=== PATIENT | male | born 1965 | race Caucasian/White ===

== ENCOUNTER → 2016-11-11 | Outpatient (CLI) | payer OTHER ==
[2016-11-11 16:45] LABS: BASO % 0.5 %; BASO ABS # 0.04 K/uL (0-0.2); COMPLETE YES; HEMATOCRIT 40.2 % (42-52); IG% 0.3 %; LYMPH % 24.4 %; LYMPH ABS # 1.93 K/uL (1.2-3.4); MEAN CELL VOLUME 90.5 fL (80-100); MEAN CORPUSCULAR HEMOGLOBIN 30.2 pg (25-34); MEAN CORPUSCULAR HGB CONC 33.3 g/dl (32-36); MEAN PLATELET VOLUME 9.5 fL (7.4-10.4); MONO % 5.4 %; NEUT % 67.4 %; PLATELET COUNT 204 K/uL (130-400); RED BLOOD COUNT 4.44 M/uL (4.7-6.1)
[2016-11-11 16:49] LABS: ALT/SGPT 22 U/L (12-78)
[2016-11-11 16:52] LABS: ALKALINE PHOSPHATASE 57 U/L (45-117); AST/SGOT 14 U/L (15-37)
== END | disposition home or self-care (01) ==
LOC: C.LAB1850 14:57
PROVIDERS: ATTEND Internal Medicine Rheumatology
DX: Z79.899 Other long term (current) drug therapy (principal); L40.50 Arthropathic psoriasis, unspecified

== ENCOUNTER → 2016-11-17 | Outpatient (CLI) | payer OTHER ==
--- NOTE | 2016-11-17 16:29 | DIAGNOSTIC IMAGING REPORT ---
LEFT HAND MIN 3 VIEWS ROUTINE CLINICAL HISTORY: METACARPOPHALANGEAL JOINT PAIN pain COMPARISON: None. DISCUSSION: The bones and joint spaces appear intact. There is no evidence of fracture, dislocation or bony disease. There is no evidence for soft tissue swelling. IMPRESSION: Negative study. Electronically signed by: Malik Merrill M.D. 11/17/2016 4:27 PM Dictated Date/Time: 11/17/2016 4:27 PM
== END | disposition home or self-care (01) ==
LOC: C.RAD1850 16:17
PROVIDERS: ATTEND Nurse Practitioner
DX: M79.642 Pain in left hand (principal)

== ENCOUNTER → 2017-07-20 | Outpatient (CLI) | payer OTHER ==
[2017-07-20 09:31] LABS: BASO % 0.5 %; BASO ABS # 0.03 K/uL (0-0.2); COMPLETE YES; EOS % 3.7 %; HEMATOCRIT 41.4 % (42-52); IG% 0.3 %; LYMPH % 25.7 %; LYMPH ABS # 1.68 K/uL (1.2-3.4); MEAN CORPUSCULAR HEMOGLOBIN 30.3 pg (25-34); MEAN CORPUSCULAR HGB CONC 33.3 g/dl (32-36); MEAN PLATELET VOLUME 9.5 fL (7.4-10.4); MONO % 6.1 %; NEUT % 63.7 %; PLATELET COUNT 205 K/uL (130-400); RED BLOOD COUNT 4.55 M/uL (4.7-6.1); WHITE BLOOD COUNT 6.54 K/uL (4.8-10.8)
[2017-07-20 10:16] LABS: ALT/SGPT 22 U/L (12-78); BLOOD UREA NITROGEN 13 mg/dl (7-18); BUN/CREATININE RATIO 13.2 (10-20); CALCIUM 8.6 mg/dl (8.5-10.1); CARBON DIOXIDE 25 mmol/L (21-32); CHLORIDE 111 mmol/L (98-107); CREATININE 0.96 mg/dl (0.60-1.40); GLUCOSE 101 mg/dl (70-99); SODIUM 143 mmol/L (136-145)
[2017-07-20 10:27] LABS: ALKALINE PHOSPHATASE 57 U/L (45-117); AST/SGOT 14 U/L (15-37); THYROID STIMULATING HORMONE 0.369 uIu/ml (0.300-4.500)
[2017-07-21 15:09] LABS: CHOLESTEROL/HDL RATIO 3.6
[2017-07-21 15:29] LABS: ESTIMATED AVERAGE GLUCOSE 108 mg/dl; HA1C FLAG Normal (Normal)
== END | disposition home or self-care (01) ==
LOC: C.LAB1850 08:21
PROVIDERS: ATTEND Internal Medicine
DX: Z00.00 Encounter for general adult medical examination without abnormal findings (principal); R73.03 Prediabetes; E03.9 Hypothyroidism, unspecified; Z79.899 Other long term (current) drug therapy

== ENCOUNTER → 2017-10-31 | Outpatient (CLI) | payer OTHER ==
[2017-10-31 09:53] LABS: BASO % 0.8 %; BASO ABS # 0.05 K/uL (0-0.2); EOS % 2.1 %; EOS ABS # 0.13 K/uL (0-0.5); HEMATOCRIT 43.5 % (42-52); HEMOGLOBIN 14.4 g/dL (14.0-18.0); IG# 0.03 K/uL (0.00-0.02); LYMPH % 30.4 %; LYMPH ABS # 1.88 K/uL (1.2-3.4); MEAN CELL VOLUME 90.2 fL (80-100); MEAN CORPUSCULAR HEMOGLOBIN 29.9 pg (25-34); MEAN CORPUSCULAR HGB CONC 33.1 g/dl (32-36); MEAN PLATELET VOLUME 9.8 fL (7.4-10.4); MONO % 8.7 %; MONO ABS # 0.54 K/uL (0.11-0.59); NEUT % 57.5 %; NEUT ABS # 3.56 K/uL (1.4-6.5); PLATELET COUNT 220 K/uL (130-400); RED CELL DISTRIBUTION WIDTH CV 14.4 % (11.5-14.5); RED CELL DISTRIBUTION WIDTH SD 46.7 fL (36.4-46.3); WHITE BLOOD COUNT 6.19 K/uL (4.8-10.8)
[2017-10-31 10:36] LABS: ALBUMIN 3.8 gm/dl (3.4-5.0); ALT/SGPT 24 U/L (12-78); AST/SGOT 14 U/L (15-37); CREATININE 1.01 mg/dl (0.60-1.40)
[2017-10-31 10:39] LABS: ALKALINE PHOSPHATASE 54 U/L (45-117); TOTAL PROTEIN 6.7 gm/dl (6.4-8.2)
== END | disposition home or self-care (01) ==
LOC: C.LAB1850 08:48
PROVIDERS: ATTEND Internal Medicine Rheumatology
DX: Z79.899 Other long term (current) drug therapy (principal); L40.50 Arthropathic psoriasis, unspecified; M79.645 Pain in left finger(s)

== ENCOUNTER → 2018-02-28 | Outpatient (CLI) | payer OTHER ==
[2018-02-28 09:44] LABS: BASO % 0.3 %; BASO ABS # 0.02 K/uL (0-0.2); EOS % 2.1 %; EOS ABS # 0.14 K/uL (0-0.5); HEMOGLOBIN 13.8 g/dL (14.0-18.0); IG# 0.02 K/uL (0.00-0.02); LYMPH % 23.1 %; LYMPH ABS # 1.52 K/uL (1.2-3.4); MEAN CELL VOLUME 91.1 fL (80-100); MEAN CORPUSCULAR HEMOGLOBIN 30.7 pg (25-34); MEAN CORPUSCULAR HGB CONC 33.7 g/dl (32-36); MEAN PLATELET VOLUME 9.4 fL (7.4-10.4); MONO % 7.8 %; MONO ABS # 0.51 K/uL (0.11-0.59); NEUT % 66.4 %; NEUT ABS # 4.37 K/uL (1.4-6.5); PLATELET COUNT 186 K/uL (130-400); RED CELL DISTRIBUTION WIDTH CV 14.9 % (11.5-14.5); WHITE BLOOD COUNT 6.58 K/uL (4.8-10.8)
[2018-02-28 10:01] LABS: ALBUMIN 3.5 gm/dl (3.4-5.0); ALKALINE PHOSPHATASE 54 U/L (45-117); ALT/SGPT 37 U/L (12-78); AST/SGOT 19 U/L (15-37); CREATININE 1.01 mg/dl (0.60-1.40); TOTAL PROTEIN 6.6 gm/dl (6.4-8.2)
== END | disposition home or self-care (01) ==
LOC: C.LAB1850 08:11
PROVIDERS: ATTEND Internal Medicine Rheumatology
DX: Z79.1 Long term (current) use of non-steroidal anti-inflammatories (NSAID) (principal); Z79.899 Other long term (current) drug therapy; L40.50 Arthropathic psoriasis, unspecified

== ENCOUNTER 2021-06-17 23:10 | Inpatient (IN) ==
[2021-06-18] MEDS ORDERED: DEXAMETHASONE SOD INJ 4 MG/ML VIAL IV STA (00:01)
[2021-06-18] MEDS ORDERED: SODIUM CHLORIDE 0.9% 1000ML 1,000 ML IV SCH (00:04)
[2021-06-18 00:18] LABS: Basophils # (auto) 0.01 K/uL (0-0.2); Basophils % (auto) 0.1 %; Hematocrit (blood only) 40.3 % (42-52); Hemoglobin 13.6 g/dL (14.0-18.0); Immature Granulocytes # (auto) 0.03 K/uL (0.00-0.02); Immature Granulocytes % (auto) 0.4 %; Lymphocytes # (auto) 1.18 K/uL (1.2-3.4); Lymphocytes % (auto) 14.2 %; Mean Corpuscular Hemoglobin 28.8 pg (25-34); Mean Corpuscular Hgb Conc 33.7 g/dL (32-36); Mean Corpuscular Volume 85.2 fL (80-100); Mean Platelet Volume 9.3 fL (7.4-10.4); Monocytes # (auto) 0.66 K/uL (0.11-0.59); Neutrophils # (auto) 6.41 K/uL (1.4-6.5); Neutrophils % (auto) 77.3 %; Platelet Count 199 K/uL (130-400); RDW Coefficient of Variation 14.5 % (11.5-14.5); RDW Standard Deviation 45.7 fL (36.4-46.3); Red Blood Count 4.73 M/uL (4.7-6.1); White Blood Count 8.29 K/uL (4.8-10.8)
[2021-06-18 00:25] LABS: Alanine Aminotransferase 47 U/L (12-78); Albumin Level 3.2 gm/dl (3.4-5.0); Aspartate Aminotransferase 56 U/L (15-37); BUN Creatinine Ratio 16.6 (10-20); Blood Urea Nitrogen 19 mg/dl (7-18); Calcium 8.8 mg/dl (8.5-10.1); Carbon Dioxide 25 mmol/L (21-32); Chloride 102 mmol/L (98-107); Est GFR (African American) 81.1 ml/min; Glucose 132 mg/dl (70-99); Lipase 123 U/L (73-393); Magnesium 1.6 mg/dl (1.8-2.4); Potassium 3.9 mmol/L (3.5-5.1); Sodium 135 mmol/L (136-145)
[2021-06-18 00:36] LABS: Albumin Globulin Ratio 0.8 (0.9-2); Alkaline Phosphatase 52 U/L (45-117); Bilirubin,Total 0.6 mg/dl (0.2-1); Globulin 3.9 gm/dl (2.5-4.0); Total Protein 7.1 gm/dl (6.4-8.2); Troponin I < 0.015 ng/ml (0-0.045)
[2021-06-18] MEDS ORDERED: ALBUT/IPRATROP 3MG/0.5MG NEB 3 ML VIAL NEB STA (00:43)
[2021-06-18] MEDS ORDERED: MAGNESIUM SULFATE / D5W 1 GM/100 ML BAG IV STA (00:43)
--- NOTE | 2021-06-18 01:07 | Emergency Department Note ---
History of Present Illness General Chief complaint: Shortness of Breath/Dyspnea Stated complaint: COVID, HARD TO BREATHE Time Seen by Provider: 06/17/21 23:24 Source: patient Mode of arrival: ambulatory Limitations: no limitations History of Present Illness Provider complaint: shortness of breath, COVID+ Onset (ago): week(s) 1 This is a 56-year-old male presents emergency department complaining of increased shortness of breath. Patient states he diagnosed with Covid several days ago. He states the first several days he had some mild aches, nasal congestion, cough, and fevers. However in the last 2 to 3 days his symptoms have worsened with increasing shortness of breath. He has been monitoring his oxygen levels at home with a pulse oximeter and noticed that he was dipping into the upper 80s. Patient does have a history of asthma, no prior history of smoking. Patient denies any cardiac history. Patient states his cough is intermittently productive. He states he has had accompanying diarrhea, nausea, poor appetite. He denies rash, leg swelling, loss of taste or smell. Has had intermittent headaches. Denies any coming chest pain. Patient was noted to be hypoxic by nursing staff on arrival and was immediately placed on oxygen via nasal cannula. His oxygen levels did not improve enough even with titrating up the oxygen via nasal cannula so he was changed to an oxy mask. Pt seen during a time of high acuity and national emergency pandemic while wearing PPE. Home Medications Medication Instructions Recorded Confirmed Type albuterol sulfate 90 mcg/actuation 2 puff INHALATION Q4H PRN 01/08/21 06/18/21 History aerosol inhaler (Ventolin HFA) fexofenadine 180 mg tablet 180 mg PO HS 01/08/21 06/18/21 History hydrochlorothiazide 12.5 mg tablet 6.25 mg PO QAM 01/08/21 06/18/21 History ibuprofen 200 mg tablet 600 - 800 mg PO DIRECTED PRN 01/08/21 06/18/21 History levothyroxine 150 mcg tablet 150 mcg PO HS 01/08/21 06/18/21 History mometasone-formoterol HFA 200 1 puff INHALATION BID 01/08/21 06/18/21 History mcg-5 mcg/actuation aerosol inhaler (Dulera) omeprazole 20 mg capsule,delayed 20 mg PO HS 01/08/21 06/18/21 History release amoxicillin 875 mg-potassium 1 tab PO BID 06/18/21 06/18/21 History clavulanate 125 mg tablet ketotifen fumarate 0.025 % (0.035 1 drp OPB DAILY PRN 06/18/21 06/18/21 History %) eye drops ([facility]) metoprolol succinate 25 mg 25 mg PO DAILY 06/18/21 06/18/21 History tablet,extended release 24 hr prednisone 20 mg tablet 40 mg PO DAILY 06/18/21 06/18/21 History Allergies Allergy/AdvReac Type Severity Reaction Status Date / Time aspirin Allergy Unknown HAPPENED Verified 01/08/21 06:49 A SMALL CHILD--TOLD NOT TO TAKE Past Med/Surg History Medical History (Updated 06/19/21 @ 08:11 by Rhea Rosario DO) Mild persistent asthma Pneumonia due to COVID-19 virus Social History Smoking Status: Never smoker Hx Alcohol Use: No Hx Substance Use: No Preferred Language: [place] Communication Ability: Effective [employer] Required: No Beliefs That Will Affect Care: None Current Living Situation: Spouse Feels Safe at Home: Yes Assistive Devices: Oxygen - Continuous Review of Systems A total of 10 systems reviewed and were otherwise negative All systems reviewed & are unremarkable except as noted in HPI & below Physical Exam Vital Signs Vital Signs - 24 hr 06/17/21 23:20 06/17/21 23:53 06/17/21 23:55 Temperature 37.4 C Temperature Source Temporal Artery Scan Pulse Rate 84 Pulse Rate [Finger] Respiratory Rate 24 Respiratory Effort / Characteristics Non-Labored Spontaneous Respiratory Depth Normal Respiratory Pattern Regular Blood Pressure 164/84 H Blood Pressure [Right Arm] Blood Pressure Mean 110 Blood Pressure Mean [Right Arm] Pulse Oximetry 86 L 86 L 87 L Oxygen Delivery Method Room Air Room Air Nasal Cannula Oxygen Flow Rate 4 Sepsis New/Unexplained Change in Mental Status N/A Sepsis Action Taken by Nursing No Action Required Oxygen Flow Rate - Titration 4 10 Pulse Oximetry Post Tiitration 87 L 91 06/17/21 23:56 06/18/21 00:27 06/18/21 01:03 Temperature Temperature Source Pulse Rate Pulse Rate [Finger] 73 70 Respiratory Rate 18 24 Respiratory Effort / Characteristics Spontaneous Short of Breath Respiratory Depth Normal Respiratory Pattern Blood Pressure Blood Pressure [Right Arm] 173/77 H Blood Pressure Mean Blood Pressure Mean [Right Arm] 109 Pulse Oximetry 91 90 93 Oxygen Delivery Method Oxymask Oxymask Oxymask Oxygen Flow Rate 10 10 10 Sepsis New/Unexplained Change in Mental Status Sepsis Action Taken by Nursing Oxygen Flow Rate - Titration Pulse Oximetry Post Tiitration GENERAL: alert, ill appearing, well nourished, no distress, non-toxic, patient placed on oxygen mask EYE EXAM: normal conjunctiva, PERRL and EOM's grossly intact OROPHARYNX: no exudate, no erythema, lips, buccal mucosa, and tongue normal and mucous membranes are moist NECK: supple, no nuchal rigidity, no adenopathy, non-tender LUNGS: Decreased to auscultation. Normal chest wall mechanics, no w/r/r, mild tachypnea noted, no retractions HEART: no murmurs, S1 normal and S2 normal ABDOMEN: abdomen soft, non-tender, normo-active bowel sounds, no masses, no rebound or guarding. BACK: Back is symmetrical on inspection and there is no deformity, no midline tenderness, no CVA tenderness. SKIN: no rashes and no bruising, no petechiae UPPER EXTREMITIES: upper extremities are grossly normal. FROM, nml pulses b/l. LOWER EXTREMITIES: No pitting edema. FROM, nml pulses b/l. NEURO EXAM: Normal sensorium, cranial nerves II-XII grossly intact, normal speech, no gross weakness of arms, no gross weakness of legs. Gross sensation intact. Course Administered Medications Albuterol (Albuterol Hfa 8 Gm Inhaler) 2 puffs INH QIDR [facility] Stop: 07/18/21 06:59 Last Admin: 06/19/21 08:03 Dose: 2 puffs Documented by: [id number] Admin: 06/18/21 19:47 Dose: 2 puffs Documented by: [id number] Admin: 06/18/21 15:16 Dose: 2 puffs Documented by: [id number] Admin: 06/18/21 11:34 Dose: 2 puffs Documented by: [id number] Admin: 06/18/21 07:27 Dose: 2 puffs Documented by: [id number] Amlodipine Besylate (Amlodipine Besylate 5 Mg Tab) 2.5 mg PO QAM [facility] Stop: 07/18/21 06:44 Last Admin: 06/18/21 08:37 Dose: 2.5 mg Documented by: [id number] Doxycycline Hyclate (Doxycycline Hyclate 100 Mg Cap) 100 mg PO BID [facility] Stop: 06/25/21 20:59 Last Admin: 06/18/21 20:19 Dose: 100 mg Documented by: [id number] Enoxaparin Sodium (Enoxaparin Inj 40 Mg/0.4 Ml Syr) 40 mg SQ QAM [facility] Stop: 07/18/21 08:59 Last Admin: 06/18/21 08:38 Dose: 40 mg Documented by: [id number] Fexofenadine HCl (Fexofenadine Hcl 180 Mg Tab) 180 mg PO HS [facility] Stop: 07/18/21 20:59 Last Admin: 06/18/21 20:19 Dose: 180 mg Documented by: [id number] Fluticasone/Vilanterol (Fluticasone/Vilanterol 200/25mcg 14 Puffs/Inhaler) 1 puffs INH DAILY [facility]; Protocol Stop: 07/18/21 08:59 Last Admin: 06/18/21 08:38 Dose: 1 puffs Documented by: [id number] Remdesivir 100 mg/ Sodium (Chloride) 250 mls @ 250 mls/hr IV Q24H [facility]; Protocol Stop: 06/21/21 20:59 Last Infusion: 06/19/21 00:08 Dose: 0 mls/hr Documented by: [id number] Admin: 06/18/21 20:15 Dose: 250 mls/hr Documented by: [id number] Dexamethasone 6 mg/ Syringe 1.5 mls @ 1 mls/min IV DAILY [facility] Stop: 07/19/21 01:34 Last Admin: 06/19/21 02:30 Dose: 1 mls/min Documented by: [id number] Insulin Aspart (Insulin Aspart 100 Units/Ml 3 Ml Pen) 0 units SC ACHS [facility] Stop: 07/18/21 11:29 Last Admin: 06/18/21 20:17 Dose: 1 units Documented by: [id number] Cosigned by: [id number] Admin: 06/18/21 17:31 Dose: 4 units Documented by: [id number] Cosigned by: [id number] Admin: 06/18/21 12:21 Dose: 1 units Documented by: [id number] Cosigned by: [id number] Levothyroxine Sodium (Levothyroxine Sodium 150 Mcg Tablet) 150 mcg PO HS [facility] Stop: 07/18/21 20:59 Last Admin: 06/18/21 20:19 Dose: 150 mcg Documented by: [id number] Metoprolol Succinate (Metoprolol Succ 25mg Ext Rel Tab) 25 mg PO DAILY [facility] Stop: 07/18/21 04:54 Last Admin: 06/18/21 05:41 Dose: 25 mg Documented by: [id number] Miscellaneous (Ketotifen: Order Awaiting Action) 1 ea N/A QS [facility] Stop: 07/18/21 07:59 Last Admin: 06/19/21 02:30 Dose: Not Given Documented by: [id number] Admin: 06/18/21 15:14 Dose: Not Given Documented by: [id number] Admin: 06/18/21 07:31 Dose: Not Given Documented by: [id number] Pantoprazole Sodium (Pantoprazole 40 Mg Tab) 40 mg PO HS [facility] Stop: 07/18/21 20:59 Last Admin: 06/18/21 20:20 Dose: 40 mg Documented by: [id number] Sodium Chloride (Sodium Chloride 0.9% 10ml Flush) 30 ml IV Q24H [facility] Stop: 06/22/21 03:41 Last Admin: 06/18/21 20:15 Dose: 30 ml Documented by: [id number] Admin: 06/18/21 04:57 Dose: 30 ml Documented by: [id number] Discontinued Medications Acetaminophen (Acetaminophen 325 Mg Tab) 325 mg PO NOW STA Stop: 06/18/21 04:53 Last Admin: 06/18/21 05:40 Dose: 325 mg Documented by: [id number] Albuterol (Albut/Ipratrop 3mg/0.5mg Neb 3 Ml Vial) 3 ml NEB NOW STA Stop: 06/18/21 00:44 Last Admin: 06/18/21 01:02 Dose: 3 ml Documented by: [id number] Albuterol (Albuterol Hfa 8 Gm Inhaler) 2 puffs INH NOW ONE Stop: 06/18/21 04:53 Last Admin: 06/18/21 05:25 Dose: 2 puffs Documented by: [id number] Albuterol (Albuterol Hfa 8 Gm Inhaler) 2 puffs INH NOW ONE Stop: 06/19/21 01:37 Last Admin: 06/19/21 02:09 Dose: 2 puffs Documented by: [id number] Dexamethasone (Dexamethasone Sod Inj 4 Mg/Ml Vial) 6 mg IV NOW STA Stop: 06/18/21 00:02 Last Admin: 06/18/21 00:21 Dose: 6 mg Documented by: [id number] Furosemide (Furosemide 40 Mg/4 Ml Vial) 40 mg IV ONE ONE Stop: 06/18/21 15:01 Last Admin: 06/18/21 15:42 Dose: 40 mg Documented by: [id number] Sodium Chloride (Nss 1000ml) 1,000 mls @ 999 mls/hr IV .Q1H1M [facility] Stop: 06/18/21 01:04 Last Infusion: 06/18/21 02:10 Dose: 0 mls/hr Documented by: [id number] Admin: 06/18/21 00:14 Dose: 999 mls/hr Documented by: [id number] Magnesium Sulfate/Dextrose (Magnesium Sulfate / D5w) 1 gm in 100 mls @ 100 mls/hr IV NOW STA Stop: 06/18/21 01:42 Last Infusion: 06/18/21 02:10 Dose: 0 mls/hr Documented by: [id number] Admin: 06/18/21 01:07 Dose: 100 mls/hr Documented by: [id number] Doxycycline Hyclate 100 mg/ (Dextrose) 110 mls @ 50 mls/hr IV NOW STA Stop: 06/18/21 03:51 Last Infusion: 06/18/21 05:37 Dose: 0 mls/hr Documented by: [id number] Admin: 06/18/21 02:13 Dose: 50 mls/hr Documented by: [id number] Remdesivir 200 mg/ Sodium (Chloride) 250 mls @ 125 mls/hr IV ONE STA; Protocol Stop: 06/18/21 03:47 Last Infusion: 06/18/21 05:37 Dose: 0 mls/hr Documented by: [id number] Admin: 06/18/21 02:21 Dose: 125 mls/hr Documented by: [id number] Potassium Chloride/Sodium Chloride (Normal Saline W/20 Meq Kcl) 20 meq in 1,000 mls @ 60 mls/hr IV .[id number] ONE Stop: 06/18/21 20:19 Last Infusion: 06/19/21 00:09 Dose: 0 mls/hr Documented by: [id number] Admin: 06/18/21 04:57 Dose: 60 mls/hr Documented by: [id number] Methylprednisolone 20 mg/ (Syringe) 0.32 mls @ 1.5 mls/min IV ONE ONE Stop: 06/18/21 06:46 Last Admin: 06/18/21 08:37 Dose: 1.5 mls/min Documented by: [id number] Magnesium Sulfate/Dextrose (Magnesium Sulfate / D5w) 1 gm in 100 mls @ 50 mls/hr IV ONE ONE Stop: 06/18/21 08:44 Last Infusion: 06/18/21 10:56 Dose: 0 mls/hr Documented by: [id number] Admin: 06/18/21 08:39 Dose: 50 mls/hr Documented by: [id number] Metoprolol Tartrate (Metoprolol Tartrate 1 Mg/Ml Vial) 2.5 mg IV NOW STA Stop: 06/18/21 01:14 Last Admin: 06/18/21 02:11 Dose: 2.5 mg Documented by: [id number] Medical Decision Making Differential Diagnosis Differential diagnoses includes but is not limited to pneumonia, bronchitis, COPD/Asthma exacerbation, pneumothorax, pulmonary embolism, congestive heart failure, acute coronary syndrome Medical Records Attestation: I reviewed the patient's medical records. Home Medications Current Medication List: was personally reviewed by me Laboratory Data Attestation: I reviewed the patient's lab results. Result diagrams: 06/19/21 06:25 06/19/21 06:25 Lab Results 06/18/21 06/18/21 06/18/21 Range/Units 00:00 00:00 00:00 WBC 8.29 (4.8-10.8) K/uL RBC 4.73 (4.7-6.1) M/uL Hgb 13.6 L (14.0-18.0) g/dL Hct 40.3 L (42-52) % MCV 85.2 (80-100) fL MCH 28.8 (25-34) pg MCHC 33.7 (32-36) g/dL RDW Std Deviation 45.7 (36.4-46.3) fL RDW Coeff of Alesha 14.5 (11.5-14.5) % Plt Count 199 (130-400) K/uL MPV 9.3 (7.4-10.4) fL Immature Gran % (Auto) 0.4 % Neut % (Auto) 77.3 % Lymph % (Auto) 14.2 % [place] % (Auto) 8.0 % Eos % (Auto) 0.0 % Baso % (Auto) 0.1 % Neut # (Auto) 6.41 (1.4-6.5) K/uL Lymph # (Auto) 1.18 L (1.2-3.4) K/uL [place] # (Auto) 0.66 H (0.11-0.59) K/uL Eos # (Auto) 0.00 (0-0.5) K/uL Baso # (Auto) 0.01 (0-0.2) K/uL Immature Gran # (Auto) 0.03 H (0.00-0.02) K/uL APTT (21.0-31.0) Seconds PTT Ratio Sodium 135 L (136-145) mmol/L Potassium 3.9 (3.5-5.1) mmol/L Chloride 102 (98-107) mmol/L Carbon Dioxide 25 (21-32) mmol/L Anion Gap 8.0 (3-11) BUN 19 H (7-18) mg/dl Creatinine 1.16 (0.6-1.4) mg/dl Est Cr Clr Drug Dosing Not Reportable Est GFR ( Amer) 81.1 ml/min Est GFR (Non-Af Amer) 70.0 ml/min BUN/Creatinine Ratio 16.6 (10-20) Glucose 132 H (70-99) mg/dl Estimat Average Glucose 160 mg/dl Hemoglobin A1c 7.2 H (4.5-5.6) % Calcium 8.8 (8.5-10.1) mg/dl Magnesium 1.6 L (1.8-2.4) mg/dl Total Bilirubin 0.6 (0.2-1) mg/dl AST 56 H (15-37) U/L ALT 47 (12-78) U/L Alkaline Phosphatase 52 (45-117) U/L Troponin I < 0.015 (0-0.045) ng/ml Total Protein 7.1 (6.4-8.2) gm/dl Albumin 3.2 L (3.4-5.0) gm/dl Globulin 3.9 (2.5-4.0) gm/dl Albumin/Globulin Ratio 0.8 L (0.9-2) Lipase 123 (73-393) U/L TSH 0.610 (0.300-4.500) uIu/ml 09/09/21 Range/Units 01:27 WBC (4.8-10.8) K/uL RBC (4.7-6.1) M/uL Hgb (14.0-18.0) g/dL Hct (42-52) % MCV (80-100) fL MCH (25-34) pg MCHC (32-36) g/dL RDW Std Deviation (36.4-46.3) fL RDW Coeff of Alesha (11.5-14.5) % Plt Count (130-400) K/uL MPV (7.4-10.4) fL Immature Gran % (Auto) % Neut % (Auto) % Lymph % (Auto) % [place] % (Auto) % Eos % (Auto) % Baso % (Auto) % Neut # (Auto) (1.4-6.5) K/uL Lymph # (Auto) (1.2-3.4) K/uL [place] # (Auto) (0.11-0.59) K/uL Eos # (Auto) (0-0.5) K/uL Baso # (Auto) (0-0.2) K/uL Immature Gran # (Auto) (0.00-0.02) K/uL APTT 31.3 H (21.0-31.0) Seconds PTT Ratio 1.2 Sodium (136-145) mmol/L Potassium (3.5-5.1) mmol/L Chloride (98-107) mmol/L Carbon Dioxide (21-32) mmol/L Anion Gap (3-11) BUN (7-18) mg/dl Creatinine (0.6-1.4) mg/dl Est Cr Clr Drug Dosing Est GFR ( Amer) ml/min Est GFR (Non-Af Amer) ml/min BUN/Creatinine Ratio (10-20) Glucose (70-99) mg/dl Estimat Average Glucose mg/dl Hemoglobin A1c (4.5-5.6) % Calcium (8.5-10.1) mg/dl Magnesium (1.8-2.4) mg/dl Total Bilirubin (0.2-1) mg/dl AST (15-37) U/L ALT (12-78) U/L Alkaline Phosphatase (45-117) U/L Troponin I (0-0.045) ng/ml Total Protein (6.4-8.2) gm/dl Albumin (3.4-5.0) gm/dl Globulin (2.5-4.0) gm/dl Albumin/Globulin Ratio (0.9-2) Lipase (73-393) U/L TSH (0.300-4.500) uIu/ml Imaging Data My Impression: X-ray: I interpreted the following studies. Chest: A single view study of the chest was reviewed and was negative for cardiomegaly, effusion, or wide mediastinum. Bilateral edema and infiltrates noted consistent with Covid infection. ECG Data Attestation: I personally reviewed and interpreted this ECG as follows: Indication: + SOB/dyspnea Rate (beats per minute): 77 Rhythm: + normal sinus ECG Intervals/blocks: + Normal QRS and + Normal QT ECG [place]: + Normal ECG ST segments: + Normal ST segments MDM Narrative This is an ill-appearing 56-year-old male who presents due to increased trouble breathing with a known diagnosis of coronavirus several days ago with an outpatient swab. Patient was noted to be hypoxic and was placed on nasal cannula, however was still hypoxic so this was titrated up to anoxia mask. Patient did report improvement of his symptoms with addition of oxygen. Patient's chest x-ray concerning and consistent with COVID-19 infection. Patient's other labs reassuring and patient was hemodynamically stable in the emergency room. Patient was started on dexamethasone. We did discuss his results and need for additional inpatient treatment at this time. Case discussed with hospitalist for additional evaluation and management. An order was placed for continuous cardiac monitoring. The monitor shows a rate of __80_ with __normal sinus__ rhythm. Impression & Plan Acute hypoxemic respiratory failure, COVID-19 Discharge Plan Visit Data Chief Complaint: Shortness of Breath/Dyspnea Stated Complaint: COVID, HARD TO BREATHE ED Provider: Rhea Rosario Discharge Problem: Acute hypoxemic respiratory failure, COVID-19 Patient Disposition: Admitted As Inpatient Discharge Instructions Interventions: ED Discharge Assessment Last Done: 06/18/21 02:31
[2021-06-18] MEDS ORDERED: METOPROLOL TARTRATE 1 MG/ML VIAL IV STA (01:13)
[2021-06-18] MEDS ORDERED: DOXYCYCLINE HYCLATE 100 MG in DEXTROSE 5% 100 ML IV STA (01:40)
--- NOTE | 2021-06-18 01:41 | History & Physical Report ---
Date of Service June 18, 2021 Assessment & Plan (1) Acute hypoxemic respiratory failure: Plan: Secondary to severe COVID-19 pneumonia Superimposed bacterial infection Possible asthma exacerbation secondary to above hypertension elevated secondary to illness Graves' disease status post radiation hypothyroidism, euthyroid as of today's TSH Chronic anemia, hemoglobin at baseline prediabetes, outpatient hemoglobin A1c of 5.17 May 2020 Medical telemetry Supplemental O2 Baseline ABG Decadron, Remdesivir (Patient was counseled regarding potential adverse effects from Remdesivir therapy and provided with patient education sheet.) Doxycycline for superimposed bacterial infection MDI RTC for presumptive asthma exacerbation Pulmonary consult if without improvement Facilitate home beta-ginger, initiate amlodipine if BP still uncontrolled and beta-ginger dose increased limited by bradycardia Update hemoglobin A1c, may need insulin coverage for hyperglycemia expected following steroid Rx DVT prophylaxis. Lovenox subcu Full code Patient's requesting updates from providers. Ms. Meliza Brunner, contact #[phone]. Text document was generated using [employer] voice recognition software. It may contain grammatical or spelling errors. Kindly contact undersigned for clarification of any documentation item in question. History of Present Illness Chief Complaint: Covid, worsening shortness of breath Primary Care Provider: Martinez Terrell, History obtained from patient, family, and records. Medical history significant for hypertension, bronchial asthma, Graves' disease status post radiation, hypothyroidism as per records, chronic anemia (baseline hemoglobin of 13 ), prediabetes. 10 days ago, patient noted sinus congestion and postnasal drip, cough productive of yellow sputum and fever. Temperature 101 at home. Has not received COVID-19 vaccination. No recollection of recent COVID-19 contacts. Last week, patient started by PCP on Augmentin and prednisone course for possible asthma exacerbation secondary to sinusitis. Outpatient COVID-19 test later noted to be positive. The last 3 days, patient noted worsening symptoms along with shortness of breath especially on exertion. No chest pain, no fluid retention. At the ER, O2 sats noted to be 80s on room air. Patient received Decadron and neb treatment at the ER. Currently feeling much better. 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 Allergies Allergy/AdvReac Type Severity Reaction Status Date / Time aspirin Allergy Unknown HAPPENED Verified 01/08/21 06:49 A SMALL CHILD--TOLD NOT TO TAKE Home Medications Medication Instructions Recorded Confirmed Type albuterol sulfate 90 mcg/actuation 2 puff INHALATION Q4H PRN 01/08/21 06/18/21 History aerosol inhaler (Ventolin HFA) fexofenadine 180 mg tablet 180 mg PO HS 01/08/21 06/18/21 History hydrochlorothiazide 12.5 mg tablet 6.25 mg PO QAM 01/08/21 06/18/21 History ibuprofen 200 mg tablet 600 - 800 mg PO DIRECTED PRN 01/08/21 06/18/21 History levothyroxine 150 mcg tablet 150 mcg PO HS 01/08/21 06/18/21 History mometasone-formoterol HFA 200 1 puff INHALATION BID 01/08/21 06/18/21 History mcg-5 mcg/actuation aerosol inhaler (Dulera) omeprazole 20 mg capsule,delayed 20 mg PO HS 01/08/21 06/18/21 History release amoxicillin 875 mg-potassium 1 tab PO BID 06/18/21 06/18/21 History clavulanate 125 mg tablet ketotifen fumarate 0.025 % (0.035 1 drp OPB DAILY PRN 06/18/21 06/18/21 History %) eye drops ([facility]) metoprolol succinate 25 mg 25 mg PO DAILY 06/18/21 06/18/21 History tablet,extended release 24 hr prednisone 20 mg tablet 40 mg PO DAILY 06/18/21 06/18/21 History Past Med/Surg History Social History Smoking Status: Never smoker Hx Alcohol Use: No Hx Substance Use: No Preferred Language: Lithuanian Communication Ability: Effective Clinical Trial Assistant Required: No Beliefs That Will Affect Care: None Current Living Situation: Spouse Feels Safe at Home: Yes Review of Systems Review of Systems: As per HPI, all 10 systems reviewed, all other ROS negative Physical Exam Physical Exam: GENERAL: Anxious, obese, minimal respiratory distress SKIN: Normal color, warm HEENT: Alopecia, pink palpebral conjunctivae, no ptosis, dry buccal mucosa, O2 mask in place NECK : Supple, short neck, no tenderness CHEST : Decreased breath sounds, no tenderness HEART : RRR, no obvious murmurs ABDOMEN: Some distention, nontender EXTREMITIES : No LE swelling/tenderness, no other conspicuous deformities noted NEUROLOGIC : Coherent, no facial asymmetry, no other gross focality Results & Data Results & Data ([facility]) Vital Signs (Past 12 Hours) Vital Signs Temp Pulse Pulse Resp BP BP Pulse Ox 06/18/21 01:03 70 24 93 06/18/21 01:00 71 19 167/79 H 91 06/18/21 00:30 75 23 196/92 H 92 06/18/21 00:27 73 18 173/77 H 90 06/18/21 00:00 88 19 173/77 H 91 06/17/21 23:56 91 06/17/21 23:55 87 L 06/17/21 23:53 86 L 06/17/21 23:30 81 21 165/76 H 91 06/17/21 23:20 37.4 C 84 24 164/84 H 86 L Laboratory Results Laboratory Results WBC 8.29 K/uL (4.8-10.8) 06/18/21 00:00 RBC 4.73 M/uL (4.7-6.1) 06/18/21 00:00 Hgb 13.6 g/dL (14.0-18.0) L 06/18/21 00:00 Hct 40.3 % (42-52) L 06/18/21 00:00 MCV 85.2 fL (80-100) 06/18/21 00:00 MCH 28.8 pg (25-34) 06/18/21 00:00 MCHC 33.7 g/dL (32-36) 06/18/21 00:00 RDW Std Deviation 45.7 fL (36.4-46.3) 06/18/21 00:00 RDW Coeff of Alesha 14.5 % (11.5-14.5) 06/18/21 00:00 Plt Count 199 K/uL (130-400) 06/18/21 00:00 MPV 9.3 fL (7.4-10.4) 06/18/21 00:00 Immature Gran % (Auto) 0.4 % 06/18/21 00:00 Neut % (Auto) 77.3 % 06/18/21 00:00 Lymph % (Auto) 14.2 % 06/18/21 00:00 Gentry % (Auto) 8.0 % 06/18/21 00:00 Eos % (Auto) 0.0 % 06/18/21 00:00 Baso % (Auto) 0.1 % 06/18/21 00:00 Neut # (Auto) 6.41 K/uL (1.4-6.5) 06/18/21 00:00 Lymph # (Auto) 1.18 K/uL (1.2-3.4) L 06/18/21 00:00 Gentry # (Auto) 0.66 K/uL (0.11-0.59) H 06/18/21 00:00 Eos # (Auto) 0.00 K/uL (0-0.5) 06/18/21 00:00 Baso # (Auto) 0.01 K/uL (0-0.2) 06/18/21 00:00 Immature Gran # (Auto) 0.03 K/uL (0.00-0.02) H 06/18/21 00:00 Sodium 135 mmol/L (136-145) L 06/18/21 00:00 Potassium 3.9 mmol/L (3.5-5.1) 06/18/21 00:00 Chloride 102 mmol/L (98-107) 06/18/21 00:00 Carbon Dioxide 25 mmol/L (21-32) 06/18/21 00:00 Anion Gap 8.0 (3-11) 06/18/21 00:00 BUN 19 mg/dl (7-18) H 06/18/21 00:00 Creatinine 1.16 mg/dl (0.6-1.4) 06/18/21 00:00 Est Cr Clr Drug Dosing Not Reportable 06/18/21 00:00 Est GFR ( Amer) 81.1 ml/min 06/18/21 00:00 Est GFR (Non-Af Amer) 70.0 ml/min 06/18/21 00:00 BUN/Creatinine Ratio 16.6 (10-20) 06/18/21 00:00 Glucose 132 mg/dl (70-99) H 06/18/21 00:00 Calcium 8.8 mg/dl (8.5-10.1) 06/18/21 00:00 Magnesium 1.6 mg/dl (1.8-2.4) L 06/18/21 00:00 Total Bilirubin 0.6 mg/dl (0.2-1) 06/18/21 00:00 AST 56 U/L (15-37) H 06/18/21 00:00 ALT 47 U/L (12-78) 06/18/21 00:00 Alkaline Phosphatase 52 U/L (45-117) 06/18/21 00:00 Troponin I < 0.015 ng/ml (0-0.045) 06/18/21 00:00 Total Protein 7.1 gm/dl (6.4-8.2) 06/18/21 00:00 Albumin 3.2 gm/dl (3.4-5.0) L 06/18/21 00:00 Globulin 3.9 gm/dl (2.5-4.0) 06/18/21 00:00 Albumin/Globulin Ratio 0.8 (0.9-2) L 06/18/21 00:00 Lipase 123 U/L (73-393) 06/18/21 00:00 TSH 0.610 uIu/ml (0.300-4.500) 06/18/21 00:00 Diagnostic Findings Chest x-ray as per my interpretation multifocal infiltrates EKG as per my interpretation : Rate 75, NSR, LAD, LAFB, incomplete RBBB, LVH, no ischemia
[2021-06-18 01:47] LABS: Partial Thromboplastin Ratio 1.2; Partial Thromboplastin Time 31.3 Seconds (21.0-31.0)
[2021-06-18] MEDS ORDERED: REMDESIVIR 200 MG in SODIUM CHLORIDE 0.9% 210 ML IV STA (01:48)
[2021-06-18 02:48] LABS: Allen Test Pos (Pos); Base Excess ABG -1.9 mEq/L (-9-1.8); HCO3 ABG 21 mmol/L (19-24); Oxygen Saturation ABG 93.6 % (90-95); PCO2 ABG 29 mmHg (35-46); PO2 ABG 63 mmHg (80-95); pH ABG 7.48 (7.35-7.45)
[2021-06-18] MEDS ORDERED: PROMETHAZINE HCL 12.5 MG in SODIUM CHLORIDE 0.9% 50 ML IV PRN (03:40)
[2021-06-18] MEDS ORDERED: NSS + 20MEQ KCL 20 MEQ/1,000 ML BAG IV ONE (03:40)
[2021-06-18] MEDS ORDERED: ALBUTEROL HFA 8 GM INHALER INH ONE (04:52)
[2021-06-18] MEDS ORDERED: ACETAMINOPHEN 325 MG TAB PO STA (04:52)
[2021-06-18] MEDS: SODIUM CHLORIDE 0.9% 10ML FLUSH IV SCH ×2 (04:57→20:15)
[2021-06-18] MEDS: METOPROLOL SUCC 25MG EXT REL TAB PO SCH (05:41)
[2021-06-18] MEDS ORDERED: MAGNESIUM SULFATE / D5W 1 GM/100 ML BAG IV ONE (06:45)
[2021-06-18] MEDS ORDERED: methylPREDNISolone 20 MG in SYRINGE 0 ML IV ONE (06:45)
[2021-06-18] MEDS: ALBUTEROL HFA 8 GM INHALER INH SCH ×4 (07:27→19:47)
[2021-06-18 07:39] LABS: Estimated Average Glucose 160 mg/dl; Hemoglobin A1C 7.2 % (4.5-5.6)
[2021-06-18] MEDS ORDERED: BUDESONIDE 0.5 MG/2 ML VIAL (PULMICORT) NEB SCH (08:00)
[2021-06-18] MEDS ORDERED: GLUCOSE 40% GEL 15 GM TUBE PO PRN (08:13)
[2021-06-18] MEDS ORDERED: DEXTROSE 50% 50 ML SYRINGE IV PRN (08:13)
[2021-06-18] MEDS ORDERED: GLUCOSE 10 TABS/TUBE PO PRN (08:13)
[2021-06-18] MEDS ORDERED: CARBOHYDRATES FOR HYPOGLYCEMIA PO PRN (08:13)
[2021-06-18] MEDS ORDERED: GLUCAGON FOR INJ 1 MG VIAL SQ PRN (08:13)
--- NOTE | 2021-06-18 08:30 | XRay Report ---
INDICATION: MN ^sob, hypoxia. TECHNIQUE: Single frontal radiograph of the chest was obtained. Comparison: Comparison is made to Chest 1 view 01/08/2021 FINDINGS: No lines and tubes are seen. The cardiomediastinal silhouette is normal. Multiple airspace opacities are seen in the bilateral mid and lower lungs. No evidence of pleural effusion or pneumothorax. IMPRESSION: Multiple airspace opacities which may represent atelectasis, pneumonia, and/or aspiration. ACT 112: Negative or not required by law. Electronically signed by: Newton Whaley M.D. 06/18/2021 8:29 AM
[2021-06-18] MEDS: amLODIPine BESYLATE 5 MG TAB PO SCH (08:37)
[2021-06-18] MEDS: FLUTICASONE/VILANTEROL 200/25MCG 14 PUFFS/INHALER INH SCH (08:38)
[2021-06-18] MEDS: ENOXAPARIN INJ 40 MG/0.4 ML SYR SQ SCH (08:38)
[2021-06-18] MEDS ORDERED: METOPROLOL SUCC 25MG EXT REL TAB PO SCH (09:00)
[2021-06-18 10:15] LABS: C Reactive Protein 7.53 mg/dl (0-0.29); Ferritin 912.3 ng/ml (8-388)
--- NOTE | 2021-06-18 10:39 | Pulmonary Consultation ---
Date of Consultation June 18, 2021 Assessment & Plan (1) Acute hypoxemic respiratory failure: (2) Pneumonia due to COVID-19 virus: (3) Mild persistent asthma: 56-year-old male with a past medical history of morbid obesity, mild persistent asthma and Graves' disease who presented to the hospital due to acute hypoxemic respiratory failure and viral pneumonia. COVID-19 viral pneumonia: I do not see the results of his testing in our electronic medical record. Please obtain these results to uploaded to our system. His CRP levels and ferritin levels are elevated. He may be eligible for tocilizumab. We will check a CRP tomorrow morning. If his levels continue to be high or increase, will give him with tocilizumab with his consent. Self awake proning was strongly encouraged. I am uncertain of the efficacy of remdesivir this far out to his illness. There are no signs of acute bacterial infection at this time. Volume overload may also be playing a role given his body habitus and chest x-ray findings. I am going to give him a one-time dose of 40 mg IV Lasix to see his response. Continue titrating his oxygen levels to maintain saturations above 90%. High flow nasal cannula and CPAP can be used on an as-needed basis. Please wean his FiO2 prior to weaning his flow rate. Agree with Decadron dosing at this time. His hemoglobin A1c is elevated and his blood sugars are rising. Will defer management of his diabetes to the primary team. Continue Lovenox for DVT prophylaxis. Asthma: I do not see evidence of an active exacerbation as he is not wheezing on exam. His ABG demonstrated a respiratory alkalosis with severe hypoxemia. I would have a low threshold for recommending this patient to be transferred to the ICU status for close monitoring. He has a high risk for sudden decompensation. History of Present Illness Reason for Consultation: COVID-19 viral pneumonia acute hypoxemic respiratory failure requiring high flow nasal cannula Attending Physician: Jaya Villeda MD History of Present Illness 56-year-old male with a past medical history of obesity (BMI 39.0), asthma on Dulera and Graves' disease presenting to the hospital due to worsening shortness of breath. Patient reported he had sinus symptoms including congestion and cough approximately 1 week ago. He describes a temperature upwards of 101 degrees when at home. He relates that his daughter has COVID-19 illness as well. He apparently tested positive for COVID-19 as an outpatient. Over the last several days he has noticed increasing shortness of breath with oxygen saturations in the 80s. He does have a history of asthma and is currently on Dulera. Generally his symptoms are well controlled. He denies any wheezing at present. He is currently requiring high flow oxygen and is on 80% FiO2 at a rate of 30 L/min. Saturations are in the low 90s. His chest x-ray demonstrates increased perihilar infiltrates. There are also hazy opacities noted towards the periphery. No effusions noted. No clear consolidation. I personally reviewed his laboratory data. No leukocytosis no stephanie. Lymphopenia present. No significant peripheral eosinophilia. CRP and ferritin levels are elevated. CRP is currently 7.53 mg/dL. Procalcitonin within normal limits at 0.07. AST is mildly elevated to 56. He was started on remdesivir by the hospitalist team. He is currently on dexamethasone 6 mg daily. Allergies Allergy/AdvReac Type Severity Reaction Status Date / Time aspirin Allergy Unknown HAPPENED Verified 01/08/21 06:49 A SMALL CHILD--TOLD NOT TO TAKE Home Medications Medication Instructions Recorded Confirmed Type albuterol sulfate 90 mcg/actuation 2 puff INHALATION Q4H PRN 01/08/21 06/18/21 History aerosol inhaler (Ventolin HFA) fexofenadine 180 mg tablet 180 mg PO HS 01/08/21 06/18/21 History hydrochlorothiazide 12.5 mg tablet 6.25 mg PO QAM 01/08/21 06/18/21 History ibuprofen 200 mg tablet 600 - 800 mg PO DIRECTED PRN 01/08/21 06/18/21 History levothyroxine 150 mcg tablet 150 mcg PO HS 01/08/21 06/18/21 History mometasone-formoterol HFA 200 1 puff INHALATION BID 01/08/21 06/18/21 History mcg-5 mcg/actuation aerosol inhaler (Dulera) omeprazole 20 mg capsule,delayed 20 mg PO HS 01/08/21 06/18/21 History release amoxicillin 875 mg-potassium 1 tab PO BID 06/18/21 06/18/21 History clavulanate 125 mg tablet ketotifen fumarate 0.025 % (0.035 1 drp OPB DAILY PRN 06/18/21 06/18/21 History %) eye drops ([facility]) metoprolol succinate 25 mg 25 mg PO DAILY 06/18/21 06/18/21 History tablet,extended release 24 hr prednisone 20 mg tablet 40 mg PO DAILY 06/18/21 06/18/21 History Patient History Medical History (Updated 06/18/21 @ 14:45 by Ector Fernandez MD) Mild persistent asthma Pneumonia due to COVID-19 virus Social History Smoking Status: Never smoker Hx Alcohol Use: No Hx Substance Use: No Preferred Language: Micronesian Communication Ability: Effective Osteologist Required: No Beliefs That Will Affect Care: None Current Living Situation: Spouse Feels Safe at Home: Yes Assistive Devices: Oxygen - Continuous Review of Systems Review of Systems: 07/23 point ROS negative unless noted elsewhere Physical Exam Physical Exam: Constitutional: Obese appearing male laying in bed. No obvious distress. I have low nasal cannula in place. Eyes: Pupils are equal round and reactive to light. Conjunctivae are normal. Anicteric sclera. Ears nose, mouth and throat: No obvious deformities. Neck: Trachea is midline. Visual inspection is normal. Respiratory: Diminished to auscultation bilaterally. Mild tachypnea. Cardiovascular: Regular rate and rhythm. No murmurs. 1+ pitting edema noted in the lower extremities. Gastrointestinal: Normal bowel sounds, soft, nontender and nondistended. No hepatosplenomegaly noted. Musculoskeletal: No cyanosis. Patient is able to move all extremities. Strength is 5 out of 5 in the upper and lower extremities. Skin: No rashes, warm dry and intact. Neurologic: No obvious focal neurological deficits seen. Psychiatric: Alert and oriented x3 with a euthymic affect. Results & Data Results & Data ([facility]) Vital Signs (Past 12 Hours) Vital Signs Temp Pulse Pulse Resp BP BP Pulse Ox 06/18/21 08:15 99.1 F 75 22 146/68 H 90 06/18/21 08:00 75 06/18/21 07:27 76 28 H 92 06/18/21 06:29 73 26 H 94 06/18/21 05:26 69 30 H 91 06/18/21 03:41 100.0 F H 72 28 H 167/77 H 92 06/18/21 01:30 84 20 184/80 H 90 06/18/21 01:03 70 24 93 06/18/21 01:00 71 19 167/79 H 91 06/18/21 00:30 75 23 196/92 H 92 06/18/21 00:27 73 18 173/77 H 90 06/18/21 00:00 88 19 173/77 H 91 06/17/21 23:56 91 06/17/21 23:55 87 L 06/17/21 23:53 86 L 06/17/21 23:30 81 21 165/76 H 91 06/17/21 23:20 99.3 F 84 24 164/84 H 86 L Vital signs, labs and imaging reviewed as per HPI PG Care Time/CCT Total # of Minutes Spent Total Time Spent with Patient: Total time spent is greater than 50% in coordination of care (as documented) at patient's floor/unit and/or counseling patient: Coding Level of Care Code 01125 Inpt Consult Level 5 Diagnoses Acute hypoxemic respiratory failure J96.01 Pneumonia due to COVID-19 virus U07.1; J12.82 Mild persistent asthma J45.30
[2021-06-18] MEDS: INSULIN ASPART 100 UNITS/ML 3 ML PEN SC SCH ×3 (12:21→20:17)
--- NOTE | 2021-06-18 12:28 | Hospitalist Progress Note ---
Date of Service June 18, 2021 Assessment & Plan (1) Acute hypoxemic respiratory failure: Plan: Acute respiratory failure with hypoxia Multifocal COVID pneumonia Possible asthma exacerbation COVID Screen:Positive as outpatient CXR:Multiple airspace opacities which may represent atelectasis, pneumonia, and/or aspiration. Procalcitonin: 0.07 Troponin negative CRP:7.53 Ferritin:912 Continue Remdesivir, Dexamethasone Consulted Pulmonology Encourage frequent Proning Lasix, Nebs as needed Continue Supplemental Oxygen DVT prophylaxis on Lovenox Monitor LFTs, renal function Continue home inhalers Diabetes Mellitus Type II New Diagnosis H/O Prediabetes HbA1C:7.2 Continue insulin therapy while hospitalized Monitor BGs Hypertension Continue amlodipine, Metoprolol Monitor Graves' disease S/P radiation Hypothyroidism TSH: 0.6 Continue levothyroxine DVT Px: Lovenox SQ Admission and Anticipated Discharge Date Admission Date: June 18, 2021 Subjective Patient is seen and examined at bedside States feeling slightly better when compared to the time of admission Cough, dyspnea slightly better Chest tightness resolved Denies nausea, vomiting, abdominal pain, diarrhea Offers no other complaints Currently on high flow oxygen Review of Systems Review of Systems: All systems reviewed & are unremarkable except as noted in Subjective Physical Exam Physical Exam: Physical Exam: Vitals signs as noted above General Appearance:Obese, no apparent distress Head: normocephalic, Atraumatic Eyes: normal inspection, EOMI Neck: supple, Trachea midline Respiratory/Chest: Decreased breath sounds, scattered rales, No accessory muscle use Cardiovascular: S1, S2, No murmur Abdomen/GI:Soft, Non tender, Bowel sounds present Extremities/Musculoskeletal:normal inspection, no edema Neurologic/Psych:AAOX3, grossly no focal neurological deficits Skin: normal color, warm Results & Data Results & Data ([facility]) Vital Signs (Past 12 Hours) Vital Signs Temp Pulse Pulse Resp BP BP Pulse Ox 06/18/21 11:35 77 26 H 91 06/18/21 11:32 37.1 C 72 23 154/73 H 92 06/18/21 08:15 37.3 C 75 22 146/68 H 90 06/18/21 08:00 75 06/18/21 07:27 76 28 H 92 06/18/21 06:29 73 26 H 94 06/18/21 05:26 69 30 H 91 06/18/21 03:41 37.8 C H 72 28 H 167/77 H 92 06/18/21 01:30 84 20 184/80 H 90 06/18/21 01:03 70 24 93 06/18/21 01:00 71 19 167/79 H 91 06/18/21 00:30 75 23 196/92 H 92 06/18/21 00:27 73 18 173/77 H 90 Laboratory Results Short CBC 06/18/21 Range/Units 00:00 WBC 8.29 (4.8-10.8) K/uL Hgb 13.6 L (14.0-18.0) g/dL Hct 40.3 L (42-52) % Plt Count 199 (130-400) K/uL BMP 06/18/21 00:00 Sodium 135 L Potassium 3.9 Chloride 102 Carbon Dioxide 25 BUN 19 H Creatinine 1.16 Glucose 132 H Calcium 8.8 Cardiac Enzymes 06/18/21 Range/Units 00:00 Troponin I < 0.015 (0-0.045) ng/ml Liver Function 06/18/21 Range/Units 00:00 Total Bilirubin 0.6 (0.2-1) mg/dl AST 56 H (15-37) U/L ALT 47 (12-78) U/L Alkaline Phosphatase 52 (45-117) U/L Albumin 3.2 L (3.4-5.0) gm/dl
[2021-06-18] MEDS ORDERED: FUROSEMIDE 40 MG in SYRINGE 0 ML IV ONE (14:43)
[2021-06-18] MEDS ORDERED: FUROSEMIDE 40 MG/4 ML VIAL IV ONE (15:00)
--- NOTE | 2021-06-18 18:25 | Electrocardiogram Report ---
Test Reason : Blood Pressure : / mmHG Vent. Rate : 077 BPM Atrial Rate : 077 BPM P-R Int : 154 ms QRS Dur : 128 ms QT Int : 406 ms P-R-T Axes : 036 -53 016 degrees QTc Int : 459 ms Normal sinus rhythm Left axis deviation Left ventricular hypertrophy with QRS widening Abnormal ECG When compared with ECG of 08-JAN-2021 06:29, (RBBB and left anterior fascicular block) is no longer Present Confirmed by Kenneth Smiley ([id number]) on 06/18/2021 6:25:35 PM Referred By: REFERRED SELF Confirmed By:Austen Smiley
[2021-06-18] MEDS: REMDESIVIR 100 MG in SODIUM CHLORIDE 0.9% 230 ML IV SCH (20:15)
[2021-06-18] MEDS: DOXYCYCLINE HYCLATE 100 MG CAP PO SCH (20:19)
[2021-06-18] MEDS: LEVOTHYROXINE SODIUM 150 MCG TABLET PO SCH (20:19)
[2021-06-18] MEDS: FEXOFENADINE HCL 180 MG TAB PO SCH (20:19)
[2021-06-18] MEDS: PANTOprazole 40 MG TAB PO SCH (20:20)
[2021-06-19] MEDS ORDERED: ALBUTEROL HFA 8 GM INHALER INH ONE (01:36)
[2021-06-19] MEDS: dexAMETHasone 6 MG in SYRINGE 0 ML IV SCH (02:30)
[2021-06-19 06:45] LABS: Basophils # (auto) 0.02 K/uL (0-0.2); Basophils % (auto) 0.2 %; Hematocrit (blood only) 40.6 % (42-52); Hemoglobin 13.7 g/dL (14.0-18.0); Immature Granulocytes # (auto) 0.09 K/uL (0.00-0.02); Immature Granulocytes % (auto) 0.8 %; Lymphocytes # (auto) 1.01 K/uL (1.2-3.4); Lymphocytes % (auto) 9.1 %; Mean Corpuscular Hemoglobin 28.8 pg (25-34); Mean Corpuscular Hgb Conc 33.7 g/dL (32-36); Mean Corpuscular Volume 85.3 fL (80-100); Mean Platelet Volume 9.1 fL (7.4-10.4); Monocytes # (auto) 0.63 K/uL (0.11-0.59); Monocytes % (auto) 5.7 %; Neutrophils % (auto) 84.2 %; Platelet Count 242 K/uL (130-400); RDW Coefficient of Variation 14.6 % (11.5-14.5); RDW Standard Deviation 46.1 fL (36.4-46.3); Red Blood Count 4.76 M/uL (4.7-6.1); White Blood Count 11.05 K/uL (4.8-10.8)
--- NOTE | 2021-06-19 07:15 | XRay Report ---
XR chest 1V portable CLINICAL HISTORY: low o2 COMPARISON STUDY: Chest radiograph June 18, 2021. FINDINGS: Lung volumes are normal. Moderate bilateral airspace opacities are again noted. Right lung opacities are unchanged. Left lung opacities have slightly progressed. There is no pneumothorax or pl eural effusion. Cardiac size is normal. Mediastinal contours are normal. There is no evidence for pul monary edema. IMPRESSION: Slight progression of moderate bilateral airspace opacities consistent with viral pneumo jamar. ACT 112: Negative or not required by law. Electronically signed by: Akira Luna M.D. 06/19/2021 7:13 AM
[2021-06-19 07:24] LABS: Albumin Level 2.9 gm/dl (3.4-5.0); BUN Creatinine Ratio 23.5 (10-20); Calcium 8.3 mg/dl (8.5-10.1); Creatinine Clr Calc Pharmacy 105.2 ml/min; Est GFR (African American) 97.1 ml/min; Est GFR (Non-African American) 83.8 ml/min; Magnesium 2.1 mg/dl (1.8-2.4); Potassium 4.2 mmol/L (3.5-5.1)
[2021-06-19 07:29] LABS: Albumin Globulin Ratio 0.8 (0.9-2); Bilirubin,Total 0.7 mg/dl (0.2-1); C Reactive Protein 6.17 mg/dl (0-0.29); Globulin 3.6 gm/dl (2.5-4.0); Total Protein 6.5 gm/dl (6.4-8.2)
[2021-06-19] MEDS: ALBUTEROL HFA 8 GM INHALER INH SCH ×4 (08:03→19:36)
[2021-06-19] MEDS ORDERED: dexAMETHasone 6 MG in SYRINGE 0 ML IV SCH (09:00)
[2021-06-19] MEDS: DOXYCYCLINE HYCLATE 100 MG CAP PO SCH ×2 (09:01→20:26)
[2021-06-19] MEDS: METOPROLOL SUCC 25MG EXT REL TAB PO SCH (09:01)
[2021-06-19] MEDS: amLODIPine BESYLATE 5 MG TAB PO SCH (09:01)
[2021-06-19] MEDS: ENOXAPARIN INJ 40 MG/0.4 ML SYR SQ SCH (09:02)
[2021-06-19] MEDS: INSULIN GLARGINE SOLOSTAR 100 UNITS/ML 3 ML PEN SC SCH ×2 (09:02→20:26)
[2021-06-19] MEDS: INSULIN ASPART 100 UNITS/ML 3 ML PEN SC SCH ×4 (09:03→20:28)
[2021-06-19] MEDS: FLUTICASONE/VILANTEROL 200/25MCG 14 PUFFS/INHALER INH SCH (09:45)
[2021-06-19 09:59] LABS: iSTAT Allen Test Pass; iSTAT Arterial Blood Gas HCO3 22 meg/L (19-24); iSTAT Arterial Blood Gas pCO2 32 mmHg (35-46); iSTAT Arterial Blood Gas pH 7.45 (7.35-7.45); iSTAT Arterial Blood Gas pO2 51 mmHg (80-95); iSTAT Carbon Dioxide 23 mmol/L (24-31); iSTAT FiO2 90 %; iSTAT Site R Radial
[2021-06-19 10:55] LABS: Base Excess ABG -1.1 mEq/L (-9-1.8); HCO3 ABG 22 mmol/L (19-24); Oxygen Saturation ABG 96.8 % (90-95); PCO2 ABG 32 mmHg (35-46); PO2 ABG 83 mmHg (80-95); pH ABG 7.45 (7.35-7.45)
--- NOTE | 2021-06-19 15:06 | Hospitalist Progress Note ---
Date of Service June 19, 2021 Assessment & Plan (1) Acute hypoxemic respiratory failure: Plan: Acute respiratory failure with hypoxia Multifocal COVID pneumonia Possible asthma exacerbation COVID Screen:Positive as outpatient CXR:Multiple airspace opacities which may represent atelectasis, pneumonia, and/or aspiration. Procalcitonin: 0.07 Troponin negative CRP:7.53>6.17 Ferritin:912 Continue Remdesivir, Dexamethasone Appreciate Pulmonology Input Encourage frequent Proning Lasix, Nebs as needed DVT prophylaxis on Lovenox Monitor LFTs, renal function Continue home inhalers Continue BiPAP for now Repeat CXR showed slight progression of moderate bilateral airspace opacities Diabetes Mellitus Type II New Diagnosis H/O Prediabetes HbA1C:7.2 Continue insulin therapy while hospitalized Monitor BGs Added Lantus Hypertension Continue amlodipine, Metoprolol Monitor Graves' disease S/P radiation Hypothyroidism TSH: 0.6 Continue levothyroxine DVT Px: Lovenox SQ Admission and Anticipated Discharge Date Admission Date: June 18, 2021 Subjective Patient is seen and examined at bedside Placed on BiPAP overnight and this morning Denies any significant cough No recurrence of chest tightness Denies nausea, vomiting, abdominal pain, diarrhea Offers no other complaints Review of Systems Review of Systems: All systems reviewed & are unremarkable except as noted in Subjective Physical Exam Physical Exam: Physical Exam: Vitals signs as noted above General Appearance:Obese, no apparent distress Head: normocephalic, Atraumatic Eyes: normal inspection, EOMI Neck: supple, Trachea midline Respiratory/Chest: Decreased breath sounds, minimal rales, No accessory muscle use Cardiovascular: S1, S2, No murmur Abdomen/GI:Soft, Non tender, Bowel sounds present Extremities/Musculoskeletal:normal inspection, no edema Neurologic/Psych:AAOX3, grossly no focal neurological deficits Skin: normal color, warm Results & Data Results & Data ([facility] [place]) Vital Signs (Past 12 Hours) Vital Signs Temp Pulse Pulse Resp BP Pulse Ox 06/19/21 11:06 36.5 C 71 20 148/83 H 92 06/19/21 10:38 65 28 H 94 06/19/21 08:38 36.9 C 70 20 154/80 H 94 06/19/21 08:19 75 20 93 06/19/21 08:00 65 06/19/21 03:37 64 29 H 94 06/19/21 03:16 37.6 C H 64 32 H 149/83 H 94 Laboratory Results Short CBC 06/19/21 Range/Units 06:25 WBC 11.05 H (4.8-10.8) K/uL Hgb 13.7 L (14.0-18.0) g/dL Hct 40.6 L (42-52) % Plt Count 242 (130-400) K/uL BMP 06/19/21 06:25 Sodium 137 Potassium 4.2 Chloride 106 Carbon Dioxide 22 BUN 23 H Creatinine 1.00 Glucose 174 H Calcium 8.3 L Liver Function 06/19/21 Range/Units 06:25 Total Bilirubin 0.7 (0.2-1) mg/dl AST 53 H (15-37) U/L ALT 48 (12-78) U/L Alkaline Phosphatase 53 (45-117) U/L Albumin 2.9 L (3.4-5.0) gm/dl
[2021-06-19] MEDS ORDERED: FUROSEMIDE 40 MG in SYRINGE 0 ML IV ONE (16:37)
--- NOTE | 2021-06-19 16:40 | Pulmonology Progress Note ---
Date of Service June 19, 2021 Assessment & Plan (1) Acute hypoxemic respiratory failure: (2) Pneumonia due to COVID-19 virus: (3) Mild persistent asthma: Plan: 56-year-old male with a past medical history of morbid obesity, mild persistent asthma and Graves' disease who presented to the hospital due to acute hypoxemic respiratory failure and viral pneumonia. COVID-19 viral pneumonia: We will hold on tocilizumab administration as his CRP has trended down. Self and awake proning was strongly encouraged. There are no signs of acute bacterial infection at this time. Volume overload may also be playing a role given his body habitus and chest x-ray findings. Given 40 mg of IV Lasix 06/18/2021. I will order for an additional dose of 40 mg IV today. Recommend continuing to keep him on the tubing drier side given his ARDS-like picture. Electrolytes and renal function acceptable. Continue 6 mg of IV Decadron daily. Acute hypoxemic respiratory failure: Continue titrating his oxygen levels to maintain saturations above 90%. High flow nasal cannula and CPAP can be used on an as-needed basis. Continue Lovenox for DVT prophylaxis. Asthma: I do not see evidence of an active exacerbation as he is not wheezing on exam. His ABG demonstrated a respiratory alkalosis with severe hypoxemia. Pulmonary will sign off at this time. Please call with questions. Thank you for consult. Admission and Anticipated Discharge Date Admission Date: June 18, 2021 Subjective Patient seen and examined this afternoon. Currently on CPAP at a pressure of 10 cm H2O. 45% FiO2. He has been on CPAP most of the day per his account. He is sitting up in a chair. He denies any shortness of breath at present. Minimal cough today. He is been trying to prone when lying in bed. No fevers or chills. Review of Systems Review of Systems: All systems reviewed & are unremarkable except as noted in HPI & below Physical Exam Physical Exam: Constitutional: Patient sitting up in a chair with CPAP in place. No apparent distress. Eyes: Pupils are equal round and reactive to light. Conjunctivae are normal. Anicteric sclera. Ears nose, mouth and throat: Exam limited as he is wearing a CPAP mask. Neck: Trachea is midline. Visual inspection is normal. Respiratory: Diminished to auscultation bilaterally. Mild tachypnea. Cardiovascular: Regular rate and rhythm. No murmurs. No significant edema. Gastrointestinal: Normal bowel sounds, soft, nontender and nondistended. No hepatosplenomegaly noted. Musculoskeletal: No cyanosis. Patient is able to move all extremities. Skin: No rashes, warm dry and intact. Neurologic: No obvious focal neurological deficits seen. Psychiatric: Alert and oriented x3 with a euthymic affect. Results & Data Results & Data ([facility]) Vital Signs (Past 12 Hours) Vital Signs Temp Pulse Pulse Resp BP Pulse Ox 06/19/21 16:18 99.3 F 70 22 164/80 H 91 06/19/21 11:06 97.7 F 71 20 148/83 H 92 06/19/21 10:38 65 28 H 94 06/19/21 08:38 98.4 F 70 20 154/80 H 94 06/19/21 08:19 75 20 93 06/19/21 08:00 65 chest x-ray with increasing bilateral interstitial opacities. PG Care Time/CCT Total # of Minutes Spent Total Time Spent with Patient: Total time spent is greater than 50% in coordination of care (as documented) at patient's floor/unit and/or counseling patient: Coding Level of Care Code 81554 Subseq Hosp Care Lvl 3 Diagnoses Acute hypoxemic respiratory failure J96.01 Pneumonia due to COVID-19 virus U07.1; J12.82 Mild persistent asthma J45.30
[2021-06-19] MEDS ORDERED: FUROSEMIDE 40 MG/4 ML VIAL IV ONE (16:45)
[2021-06-19] MEDS: SODIUM CHLORIDE 0.9% 10ML FLUSH IV SCH (20:23)
[2021-06-19] MEDS: REMDESIVIR 100 MG in SODIUM CHLORIDE 0.9% 230 ML IV SCH (20:23)
[2021-06-19] MEDS: LEVOTHYROXINE SODIUM 150 MCG TABLET PO SCH (20:25)
[2021-06-19] MEDS: PANTOprazole 40 MG TAB PO SCH (20:26)
[2021-06-19] MEDS: FEXOFENADINE HCL 180 MG TAB PO SCH (20:26)
[2021-06-20 07:58] LABS: Hematocrit (blood only) 42.7 % (42-52); Hemoglobin 14.2 g/dL (14.0-18.0); Mean Corpuscular Hemoglobin 28.5 pg (25-34); Mean Corpuscular Hgb Conc 33.3 g/dL (32-36); Mean Corpuscular Volume 85.7 fL (80-100); Mean Platelet Volume 9.1 fL (7.4-10.4); Platelet Count 330 K/uL (130-400); RDW Coefficient of Variation 14.7 % (11.5-14.5); RDW Standard Deviation 46.7 fL (36.4-46.3); Red Blood Count 4.98 M/uL (4.7-6.1); White Blood Count 13.11 K/uL (4.8-10.8)
[2021-06-20] MEDS: ALBUTEROL HFA 8 GM INHALER INH SCH ×4 (08:04→20:41)
[2021-06-20 08:41] LABS: Albumin Level 2.9 gm/dl (3.4-5.0); Calcium 8.8 mg/dl (8.5-10.1); Creatinine Clr Calc Pharmacy 104.5 ml/min; Est GFR (African American) 95.9 ml/min; Est GFR (Non-African American) 82.8 ml/min
[2021-06-20] MEDS: DOXYCYCLINE HYCLATE 100 MG CAP PO SCH ×2 (08:42→20:31)
[2021-06-20] MEDS: dexAMETHasone 6 MG in SYRINGE 0 ML IV SCH (08:42)
[2021-06-20] MEDS: METOPROLOL SUCC 25MG EXT REL TAB PO SCH (08:43)
[2021-06-20] MEDS: amLODIPine BESYLATE 5 MG TAB PO SCH (08:43)
[2021-06-20] MEDS: ENOXAPARIN INJ 40 MG/0.4 ML SYR SQ SCH (08:43)
[2021-06-20 08:44] LABS: Albumin Globulin Ratio 0.7 (0.9-2); Bilirubin,Total 0.6 mg/dl (0.2-1); Total Protein 6.9 gm/dl (6.4-8.2)
[2021-06-20] MEDS: FLUTICASONE/VILANTEROL 200/25MCG 14 PUFFS/INHALER INH SCH (08:44)
[2021-06-20] MEDS: INSULIN GLARGINE SOLOSTAR 100 UNITS/ML 3 ML PEN SC SCH ×2 (09:41→20:35)
[2021-06-20] MEDS: INSULIN ASPART 100 UNITS/ML 3 ML PEN SC SCH ×4 (09:41→20:35)
[2021-06-20] MEDS ORDERED: FUROSEMIDE 40 MG/4 ML VIAL IV ONE (12:28)
[2021-06-20] MEDS ORDERED: FUROSEMIDE 20 MG in SYRINGE 0 ML IV ONE (12:30)
--- NOTE | 2021-06-20 17:01 | Hospitalist Progress Note ---
Date of Service June 20, 2021 Assessment & Plan (1) Acute hypoxemic respiratory failure: Plan: Acute respiratory failure with hypoxia Multifocal COVID pneumonia Possible asthma exacerbation COVID Screen:Positive as outpatient CXR:Multiple airspace opacities which may represent atelectasis, pneumonia, and/or aspiration. Repeat CXR showed slight progression of moderate bilateral airspace opacities Procalcitonin: 0.07 Troponin negative CRP:7.53>6.17 Ferritin:912 Continue Remdesivir, Dexamethasone Appreciate Pulmonology Input Lasix, Nebs as needed DVT prophylaxis on Lovenox Monitor LFTs, renal function Continue home inhalers Continue BiPAP as needed Given lasix today Encouraged to prone Diabetes Mellitus Type II New Diagnosis H/O Prediabetes HbA1C:7.2 Continue insulin therapy while hospitalized Monitor BGs Added Lantus Hypertension Continue amlodipine, Metoprolol Monitor Graves' disease S/P radiation Hypothyroidism TSH: 0.6 Continue levothyroxine DVT Px: Lovenox SQ Admission and Anticipated Discharge Date Admission Date: June 18, 2021 Subjective Patient is seen and examined at bedside States dyspnea better while on BiPAP Less cough today No new complaints Appetite better today Denies chest pain, nausea, vomiting, abdominal pain, diarrhea Review of Systems Review of Systems: All systems reviewed & are unremarkable except as noted in Subjective Physical Exam Physical Exam: Physical Exam: Vitals signs as noted above General Appearance:Obese, no apparent distress Head: normocephalic, Atraumatic Eyes: normal inspection, EOMI Neck: supple, Trachea midline Respiratory/Chest: Decreased breath sounds, minimal rales, No accessory muscle use Cardiovascular: S1, S2, No murmur Abdomen/GI:Soft, Non tender, Bowel sounds present Extremities/Musculoskeletal:normal inspection, no edema Neurologic/Psych:AAOX3, grossly no focal neurological deficits Skin: normal color, warm Results & Data Results & Data ([facility]) Vital Signs (Past 12 Hours) Vital Signs Temp Pulse Pulse Resp BP Pulse Ox 06/20/21 15:35 36.6 C 86 19 128/69 97 06/20/21 15:33 77 77 21 94 06/20/21 15:12 75 06/20/21 12:09 64 30 H 94 06/20/21 12:07 67 30 H 94 06/20/21 11:32 37.3 C 73 20 140/77 94 06/20/21 09:05 67 20 93 09/11/21 09:00 59 L 06/20/21 08:04 77 28 H 96 06/20/21 07:15 37.1 C 67 27 H 137/77 94 Laboratory Results Short CBC 06/20/21 Range/Units 06:52 WBC 13.11 H (4.8-10.8) K/uL Hgb 14.2 (14.0-18.0) g/dL Hct 42.7 (42-52) % Plt Count 330 (130-400) K/uL BMP 06/20/21 06:52 Sodium 138 Potassium 4.0 Chloride 107 Carbon Dioxide 22 BUN 32 H Creatinine 1.01 Glucose 129 H Calcium 8.8 Liver Function 06/20/21 Range/Units 06:52 Total Bilirubin 0.6 (0.2-1) mg/dl AST 44 H (15-37) U/L ALT 48 (12-78) U/L Alkaline Phosphatase 55 (45-117) U/L Albumin 2.9 L (3.4-5.0) gm/dl
[2021-06-20] MEDS: REMDESIVIR 100 MG in SODIUM CHLORIDE 0.9% 230 ML IV SCH (20:09)
[2021-06-20] MEDS: SODIUM CHLORIDE 0.9% 10ML FLUSH IV SCH (20:10)
[2021-06-20] MEDS: PANTOprazole 40 MG TAB PO SCH (20:31)
[2021-06-20] MEDS: LEVOTHYROXINE SODIUM 150 MCG TABLET PO SCH (20:31)
[2021-06-20] MEDS: FEXOFENADINE HCL 180 MG TAB PO SCH (20:31)
[2021-06-21 07:01] LABS: Hematocrit (blood only) 41.4 % (42-52); Hemoglobin 13.5 g/dL (14.0-18.0); Mean Corpuscular Hgb Conc 32.6 g/dL (32-36); Mean Corpuscular Volume 85.7 fL (80-100); Mean Platelet Volume 8.8 fL (7.4-10.4); Platelet Count 330 K/uL (130-400); RDW Coefficient of Variation 14.4 % (11.5-14.5); RDW Standard Deviation 45.6 fL (36.4-46.3); Red Blood Count 4.83 M/uL (4.7-6.1); White Blood Count 12.27 K/uL (4.8-10.8)
[2021-06-21 07:31] LABS: Albumin Level 2.7 gm/dl (3.4-5.0); BUN Creatinine Ratio 29.2 (10-20); Calcium 8.5 mg/dl (8.5-10.1); Creatinine Clr Calc Pharmacy 102.6 ml/min; Est GFR (African American) 93.7 ml/min; Est GFR (Non-African American) 80.8 ml/min; Magnesium 2.1 mg/dl (1.8-2.4); Potassium 4.1 mmol/L (3.5-5.1)
[2021-06-21 07:33] LABS: Albumin Globulin Ratio 0.8 (0.9-2); Bilirubin,Total 0.6 mg/dl (0.2-1); C Reactive Protein 3.87 mg/dl (0-0.29); Globulin 3.4 gm/dl (2.5-4.0); Total Protein 6.1 gm/dl (6.4-8.2)
[2021-06-21] MEDS ORDERED: FUROSEMIDE 20 MG in SYRINGE 0 ML IV ONE (07:45)
[2021-06-21] MEDS ORDERED: FUROSEMIDE 40 MG/4 ML VIAL IV ONE (08:00)
[2021-06-21] MEDS ORDERED: FUROSEMIDE 40 MG/4 ML VIAL IV SCH (08:00)
[2021-06-21] MEDS: ALBUTEROL HFA 8 GM INHALER INH SCH ×4 (08:04→19:49)
[2021-06-21] MEDS: METOPROLOL SUCC 25MG EXT REL TAB PO SCH (08:52)
[2021-06-21] MEDS: DOXYCYCLINE HYCLATE 100 MG CAP PO SCH ×2 (08:52→19:57)
[2021-06-21] MEDS: dexAMETHasone 6 MG in SYRINGE 0 ML IV SCH (08:53)
[2021-06-21] MEDS: amLODIPine BESYLATE 5 MG TAB PO SCH (08:53)
[2021-06-21] MEDS: FLUTICASONE/VILANTEROL 200/25MCG 14 PUFFS/INHALER INH SCH (08:54)
[2021-06-21] MEDS: ENOXAPARIN INJ 40 MG/0.4 ML SYR SQ SCH (08:54)
[2021-06-21] MEDS: INSULIN GLARGINE SOLOSTAR 100 UNITS/ML 3 ML PEN SC SCH ×2 (08:56→20:53)
[2021-06-21] MEDS: INSULIN ASPART 100 UNITS/ML 3 ML PEN SC SCH ×4 (08:57→20:52)
[2021-06-21 12:00] LABS: Base Excess ABG 1.9 mEq/L (-9-1.8); HCO3 ABG 23 mmol/L (19-24); PCO2 ABG 27 mmHg (35-46); PO2 ABG 64 mmHg (80-95)
[2021-06-21 12:01] LABS: Allen Test Pos (Pos); pH ABG 7.55 (7.35-7.45)
--- NOTE | 2021-06-21 12:40 | XRay Report ---
XR chest 1V portable HISTORY: Shortness of breath. covid COMPARISON: Chest 06/19/2021. FINDINGS: Multifocal bilateral airspace opacities are again noted consistent with a viral pneumonia. This is similar to the prior study. No pneumothorax. No pleural effusions. The heart is normal in siz e. IMPRESSION: Multifocal bilateral airspace opacities consistent with a viral pneumonia. ACT 112: Negative or not required by law. Electronically signed by: Yossi Aguirre M.D. 06/21/2021 12:39 PM
[2021-06-21] MEDS: ACETAMINOPHEN 325 MG TAB PO PRN (15:25)
--- NOTE | 2021-06-21 15:49 | Hospitalist Progress Note ---
Date of Service June 21, 2021 Assessment & Plan (1) Acute hypoxemic respiratory failure: Plan: Acute respiratory failure with hypoxia Multifocal COVID pneumonia Possible asthma exacerbation COVID Screen:Positive as outpatient CXR:Multiple airspace opacities which may represent atelectasis, pneumonia, and/or aspiration. Repeat CXR showed slight progression of moderate bilateral airspace opacities Procalcitonin: 0.07 Troponin negative CRP:7.53>6.17 Ferritin:912 Continue Remdesivir, Dexamethasone Appreciate Pulmonology Input Lasix, Nebs as needed DVT prophylaxis on Lovenox Monitor LFTs, renal function Continue home inhalers Continue BiPAP as needed Encouraged to prone Continue current management We will repeat inflammatory markers tomorrow Febrile today Obtain blood cultures Diabetes Mellitus Type II New Diagnosis H/O Prediabetes HbA1C:7.2 Continue insulin therapy while hospitalized Monitor BGs Added Lantus Hypertension Continue amlodipine, Metoprolol Monitor Graves' disease S/P radiation Hypothyroidism TSH: 0.6 Continue levothyroxine DVT Px: Lovenox SQ Admission and Anticipated Discharge Date Admission Date: June 18, 2021 Subjective Patient is seen and examined at bedside Subjectively feels less dyspneic today No significant cough Discussed with pulmonology today Requiring less oxygen when compared to yesterday On and off on BiPAP Denies chest pain, nausea, vomiting, abdominal pain, diarrhea Review of Systems Review of Systems: As per HPI, all 10 systems reviewed, all other ROS negative Physical Exam Physical Exam: Physical Exam: Vitals signs as noted above General Appearance:Obese, no apparent distress Head: normocephalic, Atraumatic Eyes: normal inspection, EOMI Neck: supple, Trachea midline Respiratory/Chest: Decreased breath sounds, CTA, No accessory muscle use Cardiovascular: S1, S2, No murmur Abdomen/GI:Soft, Non tender, Bowel sounds present Extremities/Musculoskeletal:normal inspection, no edema Neurologic/Psych:AAOX3, grossly no focal neurological deficits Skin: normal color, warm Results & Data Results & Data ([facility]) Vital Signs (Past 12 Hours) Vital Signs Temp Pulse Resp BP Pulse Ox 06/21/21 15:11 38.3 C H 83 24 118/64 93 06/21/21 11:50 37.1 C 76 22 123/63 91 06/21/21 11:32 77 24 93 06/21/21 08:05 59 L 26 H 96 06/21/21 07:52 37.1 C 70 18 132/66 95 06/21/21 03:51 37.0 C 62 18 154/91 H 93 Laboratory Results Short CBC 06/21/21 Range/Units 06:34 WBC 12.27 H (4.8-10.8) K/uL Hgb 13.5 L (14.0-18.0) g/dL Hct 41.4 L (42-52) % Plt Count 330 (130-400) K/uL BMP 06/21/21 06:34 Sodium 139 Potassium 4.1 Chloride 108 H Carbon Dioxide 26 BUN 30 H Creatinine 1.03 Glucose 127 H Calcium 8.5 Liver Function 06/21/21 Range/Units 06:34 Total Bilirubin 0.6 (0.2-1) mg/dl AST 36 (15-37) U/L ALT 44 (12-78) U/L Alkaline Phosphatase 52 (45-117) U/L Albumin 2.7 L (3.4-5.0) gm/dl
[2021-06-21] MEDS: SODIUM CHLORIDE 0.9% 10ML FLUSH IV SCH (19:56)
[2021-06-21] MEDS: REMDESIVIR 100 MG in SODIUM CHLORIDE 0.9% 230 ML IV SCH (19:56)
[2021-06-21] MEDS: FEXOFENADINE HCL 180 MG TAB PO SCH (19:57)
[2021-06-21] MEDS: PANTOprazole 40 MG TAB PO SCH (19:57)
[2021-06-21] MEDS: LEVOTHYROXINE SODIUM 150 MCG TABLET PO SCH (19:57)
[2021-06-22] MEDS: ACETAMINOPHEN 325 MG TAB PO PRN (05:23)
[2021-06-22] MEDS: ALBUTEROL HFA 8 GM INHALER INH SCH ×4 (08:03→19:50)
[2021-06-22 08:33] LABS: Albumin Level 2.7 gm/dl (3.4-5.0); BUN Creatinine Ratio 28.2 (10-20); Calcium 8.5 mg/dl (8.5-10.1); Creatinine Clr Calc Pharmacy 106.5 ml/min; Est GFR (African American) 100.7 ml/min; Est GFR (Non-African American) 86.9 ml/min; Potassium 3.8 mmol/L (3.5-5.1)
[2021-06-22] MEDS: FLUTICASONE/VILANTEROL 200/25MCG 14 PUFFS/INHALER INH SCH (08:34)
[2021-06-22] MEDS: dexAMETHasone 6 MG in SYRINGE 0 ML IV SCH (08:34)
[2021-06-22] MEDS: METOPROLOL SUCC 25MG EXT REL TAB PO SCH (08:35)
[2021-06-22] MEDS: DOXYCYCLINE HYCLATE 100 MG CAP PO SCH (08:35)
[2021-06-22] MEDS: amLODIPine BESYLATE 5 MG TAB PO SCH (08:35)
[2021-06-22 08:36] LABS: Albumin Globulin Ratio 0.8 (0.9-2); Bilirubin,Total 0.8 mg/dl (0.2-1); C Reactive Protein 7.07 mg/dl (0-0.29); Globulin 3.5 gm/dl (2.5-4.0); Total Protein 6.2 gm/dl (6.4-8.2)
[2021-06-22] MEDS: INSULIN ASPART 100 UNITS/ML 3 ML PEN SC SCH ×4 (08:36→20:10)
[2021-06-22] MEDS: ENOXAPARIN INJ 40 MG/0.4 ML SYR SQ SCH (08:36)
[2021-06-22] MEDS: INSULIN GLARGINE SOLOSTAR 100 UNITS/ML 3 ML PEN SC SCH ×2 (08:38→20:11)
[2021-06-22] MEDS ORDERED: FUROSEMIDE 20 MG in SYRINGE 0 ML IV ONE (15:26)
--- NOTE | 2021-06-22 15:31 | Hospitalist Progress Note ---
Date of Service June 22, 2021 Assessment & Plan (1) Acute hypoxemic respiratory failure: Plan: Acute respiratory failure with hypoxia Multifocal COVID pneumonia Possible asthma exacerbation COVID Screen:Positive as outpatient CXR:Multiple airspace opacities which may represent atelectasis, pneumonia, and/or aspiration. Repeat CXR showed slight progression of moderate bilateral airspace opacities Procalcitonin: 0.07 Troponin negative CRP:7.53>6.17 Ferritin:912 Blood Cx:pending Completed Remdesivir course Continue Dexamethasone Appreciate Pulmonology Input Lasix, Nebs as needed DVT prophylaxis on Lovenox Monitor LFTs, renal function Continue home inhalers Continue BiPAP as needed Encouraged to prone Afebrile today We will give a dose of Lasix 20 mg today Diabetes Mellitus Type II New Diagnosis H/O Prediabetes HbA1C:7.2 Continue insulin therapy while hospitalized Monitor BGs Added Lantus Hypertension Continue amlodipine, Metoprolol Monitor Graves' disease S/P radiation Hypothyroidism TSH: 0.6 Continue levothyroxine DVT Px: Lovenox SQ Admission and Anticipated Discharge Date Admission Date: June 18, 2021 Subjective Patient is seen and examined at bedside States feeling much better today Denies any dyspnea while on high flow oxygen Appetite much improved Minimal cough Denies chest pain, nausea, vomiting, abdominal pain, diarrhea Review of Systems Review of Systems: As per HPI, all 10 systems reviewed, all other ROS negative Physical Exam Physical Exam: Physical Exam: Vitals signs as noted above General Appearance:Obese, no apparent distress Head: normocephalic, Atraumatic Eyes: normal inspection, EOMI Neck: supple, Trachea midline Respiratory/Chest: Decreased breath sounds, CTA, No accessory muscle use Cardiovascular: S1, S2, No murmur Abdomen/GI:Soft, Non tender, Bowel sounds present Extremities/Musculoskeletal:normal inspection, no edema Neurologic/Psych:AAOX3, grossly no focal neurological deficits Skin: normal color, warm Results & Data Results & Data ([facility]) Vital Signs (Past 12 Hours) Vital Signs Temp Pulse Pulse Resp BP BP Pulse Ox 06/22/21 12:13 37.2 C 89 22 144/71 H 90 06/22/21 11:11 97 H 26 H 90 06/22/21 08:04 88 21 93 06/22/21 07:46 37.3 C 87 24 150/75 H 92 06/22/21 07:20 80 09/13/21 05:06 37.7 C H 88 18 159/77 H 94 06/22/21 04:38 85 28 H 92 06/22/21 03:28 83 25 H 96 Laboratory Results [facility] 06/22/21 06:54 Sodium 136 Potassium 3.8 Chloride 106 Carbon Dioxide 22 BUN 27 H Creatinine 0.97 Glucose 118 H Calcium 8.5 Liver Function 06/22/21 Range/Units 06:54 Total Bilirubin 0.8 (0.2-1) mg/dl AST 28 (15-37) U/L ALT 36 (12-78) U/L Alkaline Phosphatase 54 (45-117) U/L Albumin 2.7 L (3.4-5.0) gm/dl
[2021-06-22] MEDS ORDERED: FUROSEMIDE 40 MG/4 ML VIAL IV ONE (15:45)
[2021-06-22] MEDS: FEXOFENADINE HCL 180 MG TAB PO SCH (20:07)
[2021-06-22] MEDS: LEVOTHYROXINE SODIUM 150 MCG TABLET PO SCH (20:07)
[2021-06-22] MEDS: PANTOprazole 40 MG TAB PO SCH (20:07)
[2021-06-23] MEDS ORDERED: COUGH DROP (SUGAR FREE) LOZ 24 LOZ/1 BOX BUCCAL ONE (02:54)
[2021-06-23 07:50] LABS: Hematocrit (blood only) 40.9 % (42-52); Hemoglobin 13.7 g/dL (14.0-18.0); Mean Corpuscular Hemoglobin 28.2 pg (25-34); Mean Corpuscular Hgb Conc 33.5 g/dL (32-36); Mean Corpuscular Volume 84.3 fL (80-100); Platelet Count 406 K/uL (130-400); RDW Coefficient of Variation 14.2 % (11.5-14.5); RDW Standard Deviation 43.6 fL (36.4-46.3); Red Blood Count 4.85 M/uL (4.7-6.1); White Blood Count 16.12 K/uL (4.8-10.8)
[2021-06-23] MEDS: ALBUTEROL HFA 8 GM INHALER INH SCH ×4 (07:50→20:01)
[2021-06-23] MEDS: ACETAMINOPHEN 325 MG TAB PO PRN (08:06)
[2021-06-23] MEDS: amLODIPine BESYLATE 5 MG TAB PO SCH (08:07)
[2021-06-23] MEDS: METOPROLOL SUCC 25MG EXT REL TAB PO SCH (08:07)
[2021-06-23] MEDS: FLUTICASONE/VILANTEROL 200/25MCG 14 PUFFS/INHALER INH SCH (08:08)
[2021-06-23] MEDS: ENOXAPARIN INJ 40 MG/0.4 ML SYR SQ SCH (08:09)
[2021-06-23 08:16] LABS: Albumin Level 2.7 gm/dl (3.4-5.0); BUN Creatinine Ratio 24.5 (10-20); Calcium 8.9 mg/dl (8.5-10.1); Creatinine Clr Calc Pharmacy 93.4 ml/min; Est GFR (African American) 86.5 ml/min; Est GFR (Non-African American) 74.6 ml/min; Potassium 3.7 mmol/L (3.5-5.1)
[2021-06-23 08:18] LABS: Albumin Globulin Ratio 0.7 (0.9-2); Bilirubin,Total 0.8 mg/dl (0.2-1); Globulin 4.1 gm/dl (2.5-4.0); Total Protein 6.8 gm/dl (6.4-8.2)
[2021-06-23] MEDS: dexAMETHasone 6 MG in SYRINGE 0 ML IV SCH (08:46)
[2021-06-23] MEDS: INSULIN ASPART 100 UNITS/ML 3 ML PEN SC SCH ×4 (08:47→21:23)
[2021-06-23] MEDS: INSULIN GLARGINE SOLOSTAR 100 UNITS/ML 3 ML PEN SC SCH (08:47)
[2021-06-23] MEDS ORDERED: FUROSEMIDE 20 MG in SYRINGE 0 ML IV ONE ×2 (08:48→09:17)
[2021-06-23] MEDS ORDERED: FUROSEMIDE 40 MG/4 ML VIAL IV ONE (09:30)
[2021-06-23] MEDS ORDERED: PHARMACY GLYCEMIC MGMT CONSULT PRN (16:21)
--- NOTE | 2021-06-23 16:28 | Hospitalist Progress Note ---
Date of Service June 23, 2021 Assessment & Plan (1) Acute hypoxemic respiratory failure: Plan: Acute respiratory failure with hypoxia Multifocal COVID pneumonia Possible asthma exacerbation COVID Screen:Positive as outpatient CXR:Multiple airspace opacities which may represent atelectasis, pneumonia, and/or aspiration. Repeat CXR showed slight progression of moderate bilateral airspace opacities Procalcitonin: 0.07>0.14 Troponin negative CRP:7.53>6.17>7.07 Ferritin:912 Blood Cx:No growth to date Completed Remdesivir course Continue Dexamethasone Day #6 Appreciate Pulmonology Input Lasix, Nebs as needed DVT prophylaxis on Lovenox Monitor LFTs, renal function Continue home inhalers Continue BiPAP/High Flow oxygen Encouraged to prone Continue current management Diabetes Mellitus Type II New Diagnosis H/O Prediabetes HbA1C:7.2 Continue insulin therapy while hospitalized Monitor BGs Added Lantus Hypertension Continue amlodipine, Metoprolol Monitor Graves' disease S/P radiation Hypothyroidism TSH: 0.6 Continue levothyroxine DVT Px: Lovenox SQ Admission and Anticipated Discharge Date Admission Date: June 18, 2021 Subjective Patient is seen and examined at bedside Subjectively feels cough, dyspnea improving Febrile this morning Sinus Tachycardia on monitor No new complaints Denies chest pain, nausea, vomiting, abdominal pain, diarrhea Review of Systems Review of Systems: All systems reviewed & are unremarkable except as noted in Subjective Physical Exam Physical Exam: Physical Exam: Vitals signs as noted above General Appearance:Obese, no apparent distress Head: normocephalic, Atraumatic Eyes: normal inspection, EOMI Neck: supple, Trachea midline Respiratory/Chest: Decreased breath sounds, CTA, No accessory muscle use Cardiovascular: S1, S2, No murmur, +Tachycardia Abdomen/GI:Soft, Non tender, Bowel sounds present Extremities/Musculoskeletal:normal inspection, no edema Neurologic/Psych:AAOX3, grossly no focal neurological deficits Skin: normal color, warm Results & Data Results & Data ([facility]) Vital Signs (Past 12 Hours) Vital Signs Temp Pulse Pulse Pulse Resp BP BP 06/23/21 15:56 37.1 C 100 H 21 144/80 H 06/23/21 15:08 101 H 30 H 06/23/21 12:20 38.1 C H 103 H 24 156/74 H 06/23/21 11:48 109 H 29 H 06/23/21 11:15 102 H 40 H 06/23/21 08:30 37.3 C 06/23/21 07:50 96 H 22 06/23/21 07:42 38.2 C H 98 H 24 150/80 H 06/23/21 07:20 97 H 06/23/21 04:42 78 22 Pulse Ox 06/23/21 15:56 90 06/23/21 15:08 91 06/23/21 12:20 91 06/23/21 11:48 90 06/23/21 11:15 92 06/23/21 08:30 06/23/21 07:50 95 06/23/21 07:42 98 06/23/21 07:20 06/23/21 04:42 96 Laboratory Results Short CBC 06/23/21 Range/Units 07:19 WBC 16.12 H (4.8-10.8) K/uL Hgb 13.7 L (14.0-18.0) g/dL Hct 40.9 L (42-52) % Plt Count 406 H (130-400) K/uL BMP 06/23/21 07:19 Sodium 136 Potassium 3.7 Chloride 104 Carbon Dioxide 22 BUN 27 H Creatinine 1.10 Glucose 145 H Calcium 8.9 Liver Function 06/23/21 Range/Units 07:19 Total Bilirubin 0.8 (0.2-1) mg/dl AST 27 (15-37) U/L ALT 34 (12-78) U/L Alkaline Phosphatase 57 (45-117) U/L Albumin 2.7 L (3.4-5.0) gm/dl
[2021-06-23] MEDS ORDERED: INSULIN GLARGINE SOLOSTAR 100 UNITS/ML 3 ML PEN SC SCH (16:45)
--- NOTE | 2021-06-23 19:28 | Pharmacy Report ---
Pharmacy Glycemic Short Note 2 - Date of Service June 23, 2021 - Glycemic Short BSG Results (Last 24 hours): 06/22/21 06/23/21 06/23/21 20:04 07:19 07:40 Glucose 145 H POC Glucose 203 H 147 H 06/23/21 06/23/21 06/23/21 12:02 16:12 16:13 Glucose POC Glucose 171 H 313 H* 314 H* OUTPATIENT ANTIDIABETIC REGIMEN: * n/A * A1C 7.2% 06/18/21 * Previously diagnosed with pre-diabetes ASSESSMENT: * Patient admitted with COVID-19 pneumonia, previously diagnosed with pre- diabetes and not currently on medications for diabetes * BSGs trending upward with dexamethasone use, in the 300s at dinner. Will tighten novolog to weight based stress of 3 as steroids most likely to affect prandial BSGs. * Fasting up to 147 mg/dL this morning, will increase lantus scale up to 15 units. Will consider addition of NPH with dexamethasone administration if prandial BSGs remain elevated with tightened novolog * Overnight checks tonight PLAN FOR INPATIENT GLYCEMIC CONTROL: * Hold outpatient oral diabetes medications * Basal insulin * Lantus 10/15 units BID * Bolus insulin * NovoLog per scale ACHS or Q6hrs while NPO * Goal Range: Low 110 mg/dL - High 140 mg/dL * Correction Factor: 15 mg/dL/unit * Nutritional / Prandial insulin per carb ratio of 1 unit per 5 grams CHO consumed PLAN FOR DISCHARGE: * tbd
[2021-06-23] MEDS ORDERED: INSULIN HUMAN REGULAR PER UNIT 10 UNITS in SYRINGE 9.9 ML IV ONE (21:00)
[2021-06-23] MEDS: FEXOFENADINE HCL 180 MG TAB PO SCH (21:22)
[2021-06-23] MEDS: LEVOTHYROXINE SODIUM 150 MCG TABLET PO SCH (21:22)
[2021-06-23] MEDS: PANTOprazole 40 MG TAB PO SCH (21:22)
[2021-06-24] MEDS: INSULIN ASPART 100 UNITS/ML 3 ML PEN SC SCH ×6 (00:23→20:09)
[2021-06-24 06:55] LABS: Hematocrit (blood only) 41.3 % (42-52); Mean Corpuscular Hemoglobin 28.2 pg (25-34); Mean Corpuscular Hgb Conc 33.9 g/dL (32-36); Mean Corpuscular Volume 83.1 fL (80-100); Mean Platelet Volume 9.1 fL (7.4-10.4); Platelet Count 469 K/uL (130-400); RDW Coefficient of Variation 14.3 % (11.5-14.5); Red Blood Count 4.97 M/uL (4.7-6.1); White Blood Count 17.56 K/uL (4.8-10.8)
[2021-06-24 07:17] LABS: ALC (manual) 0.77 K/uL (1.2-3.4); ANC (manual) 16.01 K/uL (1.4-6.5); Echinocytes 1+; Lymphocytes # (manual) 0.77 K/uL (1.2-3.4); Lymphocytes % (manual) 4.4 %; Monocytes # (manual) 0.77 K/uL (0.11-0.59); Monocytes % (manual) 4.4 %; Neutrophils # (manual) 16.01 K/uL (1.4-6.5); Neutrophils % (manual) 91.2 %
[2021-06-24] MEDS: ALBUTEROL HFA 8 GM INHALER INH SCH ×4 (07:18→19:13)
[2021-06-24 07:27] LABS: BUN Creatinine Ratio 28.3 (10-20); C Reactive Protein 13.6 mg/dl (0-0.29); Calcium 9.1 mg/dl (8.5-10.1); Creatinine Clr Calc Pharmacy 91.7 ml/min; Est GFR (African American) 84.7 ml/min; Magnesium 2.5 mg/dl (1.8-2.4); Potassium 3.6 mmol/L (3.5-5.1)
[2021-06-24] MEDS: METOPROLOL SUCC 25MG EXT REL TAB PO SCH (08:56)
[2021-06-24] MEDS: amLODIPine BESYLATE 5 MG TAB PO SCH (08:56)
[2021-06-24] MEDS: ENOXAPARIN INJ 40 MG/0.4 ML SYR SQ SCH (08:57)
[2021-06-24] MEDS: dexAMETHasone 6 MG in SYRINGE 0 ML IV SCH (08:57)
[2021-06-24] MEDS: FLUTICASONE/VILANTEROL 200/25MCG 14 PUFFS/INHALER INH SCH (08:57)
[2021-06-24] MEDS: INSULIN GLARGINE SOLOSTAR 100 UNITS/ML 3 ML PEN SC SCH (08:58)
[2021-06-24] MEDS ORDERED: INSULIN HUMAN NPH SC SCH (09:00)
--- NOTE | 2021-06-24 10:38 | XRay Report ---
XR chest 1V portable CLINICAL HISTORY: persistent hypoxia, crp up, covid + COMPARISON STUDY: Chest radiograph June 21, 2021. FINDINGS: Lung volumes are normal. No pneumothorax or pleural effusion is present. There has been pro gression of multifocal bilateral airspace opacities since chest radiograph of June 21, 2021. Car diac size is normal. Mediastinal contours are unremarkable. IMPRESSION: Progression of bilateral airspace opacities consistent with viral pneumonia. ACT 112: Negative or not required by law. Electronically signed by: Akira Luna M.D. 06/24/2021 10:37 AM
--- NOTE | 2021-06-24 12:47 | Hospitalist Progress Note ---
Date of Service June 24, 2021 Assessment & Plan (1) Acute hypoxemic respiratory failure: Plan: Acute upper respiratory failure secondary to multifocal Covid pneumonia. Patient has asthma at baseline. No wheezing on exam. No indication for antibiotics. Blood cultures reveal no growth to date. He completed a course of remdesivir and continues on dexamethasone daily. Pulmonology is following. Lasix as needed to keep him net negative from a fluid balance standpoint overall. Nebulizer therapy as needed. Continue Lovenox for DVT prophylaxis. Continue proning as often as able, for which he reports compliance. (2) DMII (diabetes mellitus, type 2): Plan: New diagnosis, HbA1C:7.2. Continue basal/bolus insulin therapy while hospitalized (3) Mild persistent asthma: Plan: Not in exacerbation-moving aiir well without wheezing. Cont current management. Pulm following. (4) Hypothyroidism: (5) HTN (hypertension): Plan: At goal-Continue amlodipine, Metoprolol (6) Obesity: (7) DVT prophylaxis: Plan: Lovenox Full Code Dispo-cont PCU monitoring DO Bonnie Andres Hospitalist Admission and Anticipated Discharge Date Admission Date: June 18, 2021 Subjective The patient is a 56-year-old man admitted for acute hypoxic respiratory failure secondary to Covid pneumonia. This is hospital day 7 and he is on high flow nasal cannula at max rates. He is intermittently coughing and intermittently has production of this cough. He reports feeling improved despite still requiring oxygen. Earlier today the oxygen came out of the wall and he desaturated. He is currently working to recover from that. He otherwise has had a mild temp of 37.6 at 11 this morning. Tachycardia seems to be improving he is tolerating p.o. and has no new issues. Denies chest pain, abdominal pain or diarrhea. Review of Systems Review of Systems: At least ten systems were reviewed and negative except as indicated in HPI above. Physical Exam Physical Exam: CONSTITUTIONAL: WNWD, vitals as above, generally NAD EYES: normal conjunctivae, no scleral icterus ENT: external ear and nose normal,MMM, hi flow nasal canula in place. NECK: trachea midline RESPIRATORY: clear to auscultation bilaterally, no crackles, rales or wheezes, normal respiratory effort, moving air well on auscultation CARDIOVASCULAR: regular rate and rhythm, S1 and 2 heard without murmurs, gallops or rubs, no JVD, no peripheral edema GASTROINTESTINAL: soft, nontender, [place] MUSCULOSKELETAL: strength 5/5 throughout, head is normocephalic and atraumatic SKIN: warm and dry NEUROLOGIC: CN 2-12 grossly intact, normal cognition, normal speech, no tremor, no gross focal deficit PSYCHIATRIC: alert cooperative and oriented to person, place and time. Euthymic mood, makes good eye contact, language grossly intact, recent and remote memory grossly intact. Results & Data Results & Data ([facility]) Vital Signs (Past 12 Hours) Vital Signs Temp Pulse Pulse Resp BP BP Pulse Ox 06/24/21 11:11 37.6 C H 107 H 21 144/74 H 89 L 06/24/21 10:58 102 H 19 92 06/24/21 07:18 92 H 20 89 L 06/24/21 07:12 36.9 C 96 H 27 H 141/85 H 88 L 06/24/21 04:52 90 06/24/21 04:13 37.2 C 89 26 H 159/83 H 90 06/24/21 03:32 84 26 H 94 Laboratory Results Short CBC 06/24/21 Range/Units 05:57 WBC 17.56 H (4.8-10.8) K/uL Hgb 14.0 (14.0-18.0) g/dL Hct 41.3 L (42-52) % Plt Count 469 H (130-400) K/uL BMP 06/24/21 05:57 Sodium 135 L Potassium 3.6 Chloride 102 Carbon Dioxide 21 BUN 32 H Creatinine 1.12 Glucose 131 H Calcium 9.1 Medications Administered Current Inpatient Medications Acetaminophen (Acetaminophen 325 Mg Tab) 325 mg PO Q6H PRN PRN Reason: Mild Pain Stop: 07/18/21 03:39 Last Admin: 06/23/21 08:06 Dose: 325 mg Documented by: Albuterol (Albuterol Hfa 8 Gm Inhaler) 2 puffs INH QIDR [facility] Stop: 07/18/21 06:59 Last Admin: 06/24/21 10:57 Dose: 2 puffs Documented by: Amlodipine Besylate (Amlodipine Besylate 5 Mg Tab) 2.5 mg PO QAM [facility] Stop: 07/18/21 06:44 Last Admin: 06/24/21 08:56 Dose: 2.5 mg Documented by: Dextrose (Dextrose 50% 50 Ml Syringe) 25 - 50 ml IV UD PRN; Protocol PRN Reason: Hypoglycemia Protocol Stop: 07/18/21 08:12 Enoxaparin Sodium (Enoxaparin Inj 40 Mg/0.4 Ml Syr) 40 mg SQ QAM [facility] Stop: 07/18/21 08:59 Last Admin: 06/24/21 08:57 Dose: 40 mg Documented by: Fexofenadine HCl (Fexofenadine Hcl 180 Mg Tab) 180 mg PO HS [facility] Stop: 07/18/21 20:59 Last Admin: 06/23/21 21:22 Dose: 180 mg Documented by: Fluticasone/Vilanterol (Fluticasone/Vilanterol 200/25mcg 14 Puffs/Inhaler) 1 puffs INH DAILY MATI; Protocol Stop: 07/18/21 08:59 Last Admin: 06/24/21 08:57 Dose: 1 puffs Documented by: Glucagon (Glucagon For Inj 1 Mg Vial) 1 mg SQ UD PRN; Protocol PRN Reason: Hypoglycemia Protocol Stop: 07/18/21 08:12 Glucose (Glucose 10 Tabs/Tube) 4 - 8 tabs PO UD PRN; Protocol PRN Reason: Hypoglycemia Protocol Stop: 07/18/21 08:12 Glucose (Glucose 40% Gel 15 Gm Tube) 15 - 30 gm PO UD PRN; Protocol PRN Reason: Hypoglycemia Protocol Stop: 07/18/21 08:12 Promethazine HCl 12.5 mg/ (Sodium Chloride) 50.5 mls @ 202 mls/hr IV Q6H PRN PRN Reason: Nausea And Vomiting Stop: 07/18/21 03:39 Dexamethasone 6 mg/ Syringe 1.5 mls @ 1 mls/min IV DAILY [facility] Stop: 07/19/21 01:34 Last Admin: 06/24/21 08:57 Dose: 1 mls/min Documented by: Insulin Aspart (Insulin Aspart 100 Units/Ml 3 Ml Pen) 0 units SC ACHS [facility] Stop: 07/18/21 11:29 Last Admin: 06/24/21 09:00 Dose: 7 units Documented by: Insulin Glargine (Insulin Glargine Solostar 100 Units/Ml 3 Ml Pen) 10 units SC QAM [facility] Stop: 07/24/21 08:59 Last Admin: 06/24/21 08:58 Dose: 10 units Documented by: Insulin Human NPH (Insulin Human Nph) 30 units SC DAILY@0900 [facility] Stop: 07/24/21 08:59 Last Admin: 06/24/21 08:59 Dose: 30 units Documented by: Levothyroxine Sodium (Levothyroxine Sodium 150 Mcg Tablet) 150 mcg PO [facility] Stop: 07/18/21 20:59 Last Admin: 06/23/21 21:22 Dose: 150 mcg Documented by: Metoprolol Succinate (Metoprolol Succ 25mg Ext Rel Tab) 25 mg PO DAILY [facility] Stop: 07/18/21 04:54 Last Admin: 06/24/21 08:56 Dose: 25 mg Documented by: Miscellaneous (Carbohydrates For Hypoglycemia ) 15 - 30 gm PO UD PRN PRN Reason: Hypoglycemia Protocol Stop: 07/18/21 08:12 Miscellaneous Information (Pharmacy Glycemic Mgmt Consult) 1 ea N/A UD PRN PRN Reason: Consult Stop: 07/23/21 16:20 Pantoprazole Sodium (Pantoprazole 40 Mg Tab) 40 mg PO [facility] Stop: 07/18/21 20:59 Last Admin: 06/23/21 21:22 Dose: 40 mg Documented by:
--- NOTE | 2021-06-24 12:48 | Pharmacy Report ---
Pharmacy Glycemic Short Note 2 - Date of Service June 24, 2021 - Glycemic Short BSG Results (Last 24 hours): 06/23/21 06/23/21 06/23/21 16:12 16:13 20:16 Glucose POC Glucose 313 H* 314 H* 313 H* 06/23/21 06/23/21 06/24/21 20:18 23:20 03:53 Glucose POC Glucose 335 H* 139 H 127 H 06/24/21 06/24/21 06/24/21 05:57 07:15 11:14 Glucose 131 H POC Glucose 150 H 192 H OUTPATIENT ANTIDIABETIC REGIMEN: * n/A * A1C 7.2% 06/18/21 * Previously diagnosed with pre-diabetes ASSESSMENT: 06/24 * 54 units SQ administered over last 24 hours while tolerating diet * Fasting BSG 150 this AM w/ 20 units basal on board * Will add NPH today (~0.35units/kg adj BW) to combat dexamethasone IV associated hyperglycemia * Will continue the "high" stress Novolog dosing for now, until we see the effects of NPH admin on post-prandial BSG rise 06/23 * Patient admitted with COVID-19 pneumonia, previously diagnosed with pre- diabetes and not currently on medications for diabetes * BSGs trending upward with dexamethasone use, in the 300s at dinner. Will tighten novolog to weight based stress of 3 as steroids most likely to affect prandial BSGs. * Fasting up to 147 mg/dL this morning, will increase lantus scale up to 15 units. Will consider addition of NPH with dexamethasone administration if prandial BSGs remain elevated with tightened novolog * Overnight checks tonight PLAN FOR INPATIENT GLYCEMIC CONTROL: * Hold outpatient oral diabetes medications * Basal insulin * Lantus 10 Q AM * NPH 30 units Q AM - administered at the same time IV dexamethasone given * Bolus insulin * NovoLog per scale ACHS or Q6hrs while NPO * Goal Range: Low 110 mg/dL - High 140 mg/dL * Correction Factor: 15 mg/dL/unit * Nutritional / Prandial insulin per carb ratio of 1 unit per 5 grams CHO consumed PLAN FOR DISCHARGE: * tbd
[2021-06-24] MEDS: PANTOprazole 40 MG TAB PO SCH (20:12)
[2021-06-24] MEDS: LEVOTHYROXINE SODIUM 150 MCG TABLET PO SCH (20:14)
[2021-06-24] MEDS: FEXOFENADINE HCL 180 MG TAB PO SCH (20:14)
[2021-06-24] MEDS ORDERED: ACETAMINOPHEN 325 MG TAB PO STA (22:04)
[2021-06-25] MEDS: FLUTICASONE PROPIONATE NA SPR 16 GM BTL SCH ×2 (00:28→09:01)
[2021-06-25] MEDS: BENZONATATE 100 MG CAPSULE PO SCH ×4 (00:28→21:33)
[2021-06-25] MEDS: INSULIN ASPART 100 UNITS/ML 3 ML PEN SC SCH ×5 (02:42→21:38)
[2021-06-25] MEDS ORDERED: FUROSEMIDE 20 MG in SYRINGE 0 ML IV ONE (07:07)
[2021-06-25] MEDS ORDERED: FUROSEMIDE 40 MG/4 ML VIAL IV SCH ×2 (07:30→12:00)
[2021-06-25 08:00] LABS: Basophils # (auto) 0.02 K/uL (0-0.2); Basophils % (auto) 0.1 %; Eosinophils # (auto) 0.02 K/uL (0-0.5); Eosinophils % (auto) 0.1 %; Hematocrit (blood only) 37.7 % (42-52); Hemoglobin 12.8 g/dL (14.0-18.0); Immature Granulocytes # (auto) 0.26 K/uL (0.00-0.02); Immature Granulocytes % (auto) 1.8 %; Lymphocytes # (auto) 0.78 K/uL (1.2-3.4); Lymphocytes % (auto) 5.3 %; Mean Corpuscular Hemoglobin 28.4 pg (25-34); Mean Corpuscular Volume 83.6 fL (80-100); Mean Platelet Volume 8.6 fL (7.4-10.4); Monocytes # (auto) 0.44 K/uL (0.11-0.59); Neutrophils % (auto) 89.7 %; Platelet Count 429 K/uL (130-400); RDW Coefficient of Variation 14.1 % (11.5-14.5); Red Blood Count 4.51 M/uL (4.7-6.1); White Blood Count 14.82 K/uL (4.8-10.8)
[2021-06-25 08:28] LABS: BUN Creatinine Ratio 27.6 (10-20); C Reactive Protein 8.44 mg/dl (0-0.29); Calcium 8.3 mg/dl (8.5-10.1); Creatinine Clr Calc Pharmacy 109.3 ml/min; Est GFR (African American) 104.6 ml/min; Est GFR (Non-African American) 90.3 ml/min; Magnesium 2.4 mg/dl (1.8-2.4); Phosphorus 3.5 mg/dl (2.5-4.9); Potassium 3.9 mmol/L (3.5-5.1)
[2021-06-25] MEDS: ENOXAPARIN INJ 40 MG/0.4 ML SYR SQ SCH (09:00)
[2021-06-25] MEDS: dexAMETHasone 6 MG in SYRINGE 0 ML IV SCH (09:00)
[2021-06-25] MEDS: METOPROLOL SUCC 25MG EXT REL TAB PO SCH (09:00)
[2021-06-25] MEDS: amLODIPine BESYLATE 5 MG TAB PO SCH (09:01)
[2021-06-25] MEDS: ALBUTEROL HFA 8 GM INHALER INH SCH ×4 (09:09→19:39)
[2021-06-25] MEDS: INSULIN GLARGINE SOLOSTAR 100 UNITS/ML 3 ML PEN SC SCH (09:40)
[2021-06-25] MEDS: FLUTICASONE/VILANTEROL 200/25MCG 14 PUFFS/INHALER INH SCH (09:40)
[2021-06-25] MEDS: INSULIN HUMAN NPH SC SCH (10:15)
--- NOTE | 2021-06-25 11:23 | Pharmacy Report ---
Pharmacy Glycemic Short Note 2 - Date of Service June 25, 2021 - Glycemic Short BSG Results (Last 24 hours): 06/24/21 06/24/21 06/24/21 11:14 16:34 20:02 Glucose POC Glucose 192 H 306 H* 216 H 06/25/21 06/25/21 06/25/21 02:40 07:43 07:47 Glucose 132 H POC Glucose 133 H 132 H OUTPATIENT ANTIDIABETIC REGIMEN: * n/A * A1C 7.2% 06/18/21 * Previously diagnosed with pre-diabetes ASSESSMENT: 06/25 * 82 units SQ administered over last 24 hours while tolerating diet * Fasting BSG 132 this AM with 10 units Lantus and 30 units NPH given yesterday * Post-prandial hyperglycemia observed w/ 2 of 3 meals yesterday, primarily following lunch and dinner - will titrate up NPH dose today 06/24 * 54 units SQ administered over last 24 hours while tolerating diet * Fasting BSG 150 this AM w/ 20 units basal on board * Will add NPH today (~0.35units/kg adj BW) to combat dexamethasone IV associated hyperglycemia * Will continue the "high" stress Novolog dosing for now, until we see the effects of NPH admin on post-prandial BSG rise 06/23 * Patient admitted with COVID-19 pneumonia, previously diagnosed with pre- diabetes and not currently on medications for diabetes * BSGs trending upward with dexamethasone use, in the 300s at dinner. Will tighten novolog to weight based stress of 3 as steroids most likely to affect prandial BSGs. * Fasting up to 147 mg/dL this morning, will increase lantus scale up to 15 units. Will consider addition of NPH with dexamethasone administration if prandial BSGs remain elevated with tightened novolog * Overnight checks tonight PLAN FOR INPATIENT GLYCEMIC CONTROL: * Hold outpatient oral diabetes medications * Basal insulin - increase NPH * Lantus 10 Q AM * NPH 40 units Q AM - administered at the same time IV dexamethasone given * Bolus insulin - no change * NovoLog per scale ACHS or Q6hrs while NPO * Goal Range: Low 110 mg/dL - High 140 mg/dL * Correction Factor: 15 mg/dL/unit * Nutritional / Prandial insulin per carb ratio of 1 unit per 5 grams CHO consumed PLAN FOR DISCHARGE: * Given A1c of 7.2%, and recent receipt of outpt steroid therapy, would recommend lifestyle modifications on discharge with periodic SMBG and f/u A1c testing in a month or two to screen for DM.
[2021-06-25] MEDS ORDERED: FUROSEMIDE 40 MG in SYRINGE 0 ML IV ONE (11:41)
--- NOTE | 2021-06-25 12:20 | Pulmonology Progress Note ---
Date of Service June 25, 2021 Assessment & Plan (1) Acute hypoxemic respiratory failure: (2) Pneumonia due to COVID-19 virus: (3) Mild persistent asthma: Plan: 56-year-old male with a past medical history of morbid obesity, mild persistent asthma and Graves' disease who presented to the hospital due to acute hypoxemic respiratory failure and viral pneumonia. COVID-19 viral pneumonia: Self and awake proning was strongly encouraged. There are no signs of acute bacterial infection at this time. Volume overload may also be playing a role given his body habitus and chest x-ray findings. Continue diuresis to achieve a negative fluid balance. Currently -8 L. Electrolytes and renal function acceptable. We will increase Decadron to 10 mg daily. We will give an additional 10 mg now. His CRP is trending upwards. Procalcitonin from 06/24/2021 0.37. Antibiotics not indicated at this time. He completed a course of remdesivir. He tested positve for COVID-19 on 06/12/2021. Patient was encouraged to keep his mouth closed as much as possible while on high flow oxygen to prevent desaturations. Acute hypoxemic respiratory failure: Continue titrating his oxygen levels to maintain saturations above 90%. High flow nasal cannula and CPAP can be used on an as-needed basis. Continue Lovenox for DVT prophylaxis. Asthma: I do not see evidence of an active exacerbation as he is not wheezing on exam. His ABG demonstrated a respiratory alkalosis with severe hypoxemia. He has a high risk for sudden decompensation requiring the need for intubation and mechanical ventilation. He verbally consents to intubation and mechanical ventilation if necessary. Plan discussed with the patient hospitalist, Dr. Hicks and the patient's nurse. Admission and Anticipated Discharge Date Admission Date: June 18, 2021 Subjective Patient was previously seen by me on pulmonary consults last week. I was asked to reevaluate the patient due to concerns for worsening hypoxemic respiratory failure. He was put on BiPAP this morning due to desaturations into the 70s. When I saw him he generally appeared comfortable. He was certainly mildly tachypneic with a respiratory rate in the mid 20s. We transitioned him to high flow nasal cannula and he is currently on 85% FiO2 saturating in the mid 90s. He received 20 mg of IV Lasix. I am giving an additional 40 mg of Lasix. He denies any chest pain. He feels more comfortable on high flow nasal cannula. No fevers at present. Mild chest tightness. Endorses sinus congestion. Review of Systems Review of Systems: All systems reviewed & are unremarkable except as noted in HPI & below Physical Exam Physical Exam: Constitutional: Sitting up in bed with a high flow nasal cannula in place. No apparent distress. Eyes: Pupils are equal round and reactive to light. Conjunctivae are normal. Anicteric sclera. Ears nose, mouth and throat: No obvious focal deficits. Neck: Trachea is midline. Visual inspection is normal. Respiratory: Diminished to auscultation bilaterally. Mild tachypnea. Cardiovascular: Regular rate and rhythm. No murmurs. No significant edema. Gastrointestinal: Normal bowel sounds, soft, nontender and nondistended. No hepatosplenomegaly noted. Musculoskeletal: No cyanosis. Patient is able to move all extremities. Skin: No rashes, warm dry and intact. Neurologic: No obvious focal neurological deficits seen. Psychiatric: Alert and oriented x3 with a euthymic affect. Results & Data Results & Data ([facility]) Vital Signs (Past 12 Hours) Vital Signs Temp Pulse Pulse Pulse Resp BP BP 06/25/21 11:48 98.6 F 94 H 28 H 153/76 H 06/25/21 11:07 108 H 22 06/25/21 10:57 108 H 20 06/25/21 10:12 92 H 24 06/25/21 08:36 95 H 18 06/25/21 07:43 97.7 F 85 29 H 147/72 H 06/25/21 07:18 79 22 06/25/21 03:40 98.8 F 82 26 H 128/64 06/25/21 03:00 06/25/21 02:56 77 22 Pulse Ox Pulse Ox 06/25/21 11:48 90 06/25/21 11:07 95 06/25/21 10:57 92 06/25/21 10:12 90 06/25/21 08:36 89 L 06/25/21 07:43 89 L 06/25/21 07:18 92 06/25/21 03:40 88 L 06/25/21 03:00 90 06/25/21 02:56 91 Vital signs, labs and imaging reviewed. Chest x-ray from 06/24/2021 with increasing bilateral airspace opacities. PG Care Time/CCT Total # of Minutes Spent Total Time Spent with Patient: Total time spent is greater than 50% in coordination of care (as documented) at patient's floor/unit and/or counseling patient: Coding Level of Care Code 15513 Subseq Hosp Care Lvl 3 Diagnoses Acute hypoxemic respiratory failure J96.01 Pneumonia due to COVID-19 virus U07.1; J12.82 Mild persistent asthma J45.30
[2021-06-25] MEDS ORDERED: dexAMETHasone 10 MG in SYRINGE 0 ML IV ONE (12:30)
--- NOTE | 2021-06-25 17:02 | Hospitalist Progress Note ---
Date of Service June 25, 2021 Assessment & Plan (1) Acute hypoxemic respiratory failure: Plan: Acute upper respiratory failure secondary to multifocal Covid pneumonia. Patient has asthma at baseline. No wheezing on exam. No indication for antibiotics. Blood cultures reveal no growth to date. He completed a course of remdesivir and continues on dexamethasone daily (Day 8). Pulmonology is following. Lasix as needed to keep him net negative from a fluid balance standpoint overall. Nebulizer therapy as needed. Continue Lovenox for DVT prophylaxis. Continue proning as often as able, for which he reports compliance. Able to avoid intubation with repositioning and closing mouth when breathing. Additional lasix given. (2) DMII (diabetes mellitus, type 2): Plan: New diagnosis, HbA1C:7.2. Continue basal/bolus insulin therapy while hospitalized (3) Mild persistent asthma: Plan: Not in exacerbation-moving aiir well without wheezing. Cont current management. Pulm following. (4) Hypothyroidism: Plan: chronic, stable. Cont home levothyroxine. (5) HTN (hypertension): Plan: At goal-Continue amlodipine, Metoprolol (6) Obesity: (7) DVT prophylaxis: Plan: Lovenox Full Code Dispo-cont PCU monitoring Ramona Hicks DO [facility] Hospitalist Admission and Anticipated Discharge Date Admission Date: June 18, 2021 Subjective 56 yo M with covid pneumonia proning but despite this oxygen levels desaturated to 76% difficult to get them up. is on high flow also was on max BIPAP with issues overnight concern for need to intubate so asked branch sales and service representative to evaluate pt denies any pain or other issues at this time. Review of Systems Review of Systems: All systems were reviewed and negative except as indicated in HPI above. Physical Exam Physical Exam: CONSTITUTIONAL: obese, vitals as above, ill-appearing, lying in prone position EYES: normal conjunctivae, no scleral icterus ENT: external ear and nose normal,MMM, hi flow nasal canula in place. RESPIRATORY: clear to auscultation bilaterally, no crackles, rales or wheezes, normal respiratory effort, moving air well on auscultation CARDIOVASCULAR: tachy rate and rhythm, S1 and 2 heard without murmurs, gallops or rubs, no JVD, no peripheral edema GASTROINTESTINAL: abdomen not examined as he is prone. MUSCULOSKELETAL: strength 5/5 throughout, head is normocephalic and atraumatic SKIN: warm and dry NEUROLOGIC: CN 2-12 grossly intact, normal cognition, normal speech, no tremor, no gross focal deficit PSYCHIATRIC: alert cooperative and oriented to person, place and time. Results & Data Results & Data ([facility]) Vital Signs (Past 12 Hours) Vital Signs Temp Pulse Pulse Pulse Resp BP Pulse Ox 06/25/21 16:12 92 H 21 93 06/25/21 15:30 37.4 C 91 H 24 136/69 93 06/25/21 14:51 95 H 22 92 06/25/21 11:48 37.0 C 94 H 28 H 153/76 H 90 06/25/21 11:07 108 H 22 95 06/25/21 10:57 108 H 20 92 06/25/21 10:12 92 H 24 90 06/25/21 08:36 95 H 18 89 L 06/25/21 08:00 71 06/25/21 07:43 36.5 C 85 29 H 147/72 H 89 L 06/25/21 07:18 79 22 92 Laboratory Results Short CBC 06/25/21 Range/Units 07:43 WBC 14.82 H (4.8-10.8) K/uL Hgb 12.8 L (14.0-18.0) g/dL Hct 37.7 L (42-52) % Plt Count 429 H (130-400) K/uL BMP 06/25/21 07:43 Sodium 138 Potassium 3.9 Chloride 107 Carbon Dioxide 22 BUN 26 H Creatinine 0.94 Glucose 132 H Calcium 8.3 L Medications Administered Current Inpatient Medications Acetaminophen (Acetaminophen 325 Mg Tab) 325 mg PO Q6H PRN PRN Reason: Mild Pain Stop: 07/18/21 03:39 Last Admin: 06/23/21 08:06 Dose: 325 mg Documented by: Albuterol (Albuterol Hfa 8 Gm Inhaler) 2 puffs INH QIDR [facility] Stop: 07/18/21 06:59 Last Admin: 06/25/21 14:51 Dose: 2 puffs Documented by: Amlodipine Besylate (Amlodipine Besylate 5 Mg Tab) 2.5 mg PO QAM [facility] Stop: 07/18/21 06:44 Last Admin: 06/25/21 09:01 Dose: 2.5 mg Documented by: Benzonatate (Benzonatate 100 Mg Capsule) 100 mg PO TID MATI Stop: 07/24/21 23:44 Last Admin: 06/25/21 14:44 Dose: 100 mg Documented by: Dextrose (Dextrose 50% 50 Ml Syringe) 25 - 50 ml IV UD PRN; Protocol PRN Reason: Hypoglycemia Protocol Stop: 07/18/21 08:12 Enoxaparin Sodium (Enoxaparin Inj 40 Mg/0.4 Ml Syr) 40 mg SQ QAM [facility] Stop: 07/18/21 08:59 Last Admin: 06/25/21 09:00 Dose: 40 mg Documented by: Fexofenadine HCl (Fexofenadine Hcl 180 Mg Tab) 180 mg PO HS [facility] Stop: 07/18/21 20:59 Last Admin: 06/24/21 20:14 Dose: 180 mg Documented by: Fluticasone Propionate (Fluticasone Propionate Na Spr 16 Gm Btl) 2 sprays NA DAILY [facility] Stop: 07/24/21 23:44 Last Admin: 06/25/21 09:01 Dose: 2 sprays Documented by: Fluticasone/Vilanterol (Fluticasone/Vilanterol 200/25mcg 14 Puffs/Inhaler) 1 puffs INH DAILY [facility]; Protocol Stop: 07/18/21 08:59 Last Admin: 06/25/21 09:40 Dose: 1 puffs Documented by: Glucagon (Glucagon For Inj 1 Mg Vial) 1 mg SQ UD PRN; Protocol PRN Reason: Hypoglycemia Protocol Stop: 07/18/21 08:12 Glucose (Glucose 10 Tabs/Tube) 4 - 8 tabs PO UD PRN; Protocol PRN Reason: Hypoglycemia Protocol Stop: 07/18/21 08:12 Glucose (Glucose 40% Gel 15 Gm Tube) 15 - 30 gm PO UD PRN; Protocol PRN Reason: Hypoglycemia Protocol Stop: 07/18/21 08:12 Promethazine HCl 12.5 mg/ (Sodium Chloride) 50.5 mls @ 202 mls/hr IV Q6H PRN PRN Reason: Nausea And Vomiting Stop: 07/18/21 03:39 Dexamethasone 10 mg/ Syringe 2.5 mls @ 1 mls/min IV DAILY [facility] Stop: 07/26/21 08:59 Insulin Aspart (Insulin Aspart 100 Units/Ml 3 Ml Pen) 0 units SC ACHS [facility] Stop: 07/18/21 11:29 Last Admin: 06/25/21 13:26 Dose: 8 units Documented by: Insulin Aspart (Insulin Aspart 100 Units/Ml 3 Ml Pen) 0 units SC TODAY@0200 [facility] Stop: 07/25/21 01:59 Last Admin: 06/25/21 02:42 Dose: Not Given Documented by: Insulin Glargine (Insulin Glargine Solostar 100 Units/Ml 3 Ml Pen) 10 units SC QAM [facility] Stop: 07/24/21 08:59 Last Admin: 06/25/21 09:40 Dose: 10 units Documented by: Insulin Human NPH (Insulin Human Nph) 40 units SC DAILY@0900 [facility] Stop: 07/25/21 08:59 Last Admin: 06/25/21 10:15 Dose: 40 units Documented by: Levothyroxine Sodium (Levothyroxine Sodium 150 Mcg Tablet) 150 mcg PO HS [facility] Stop: 07/18/21 20:59 Last Admin: 06/24/21 20:14 Dose: 150 mcg Documented by: Metoprolol Succinate (Metoprolol Succ 25mg Ext Rel Tab) 25 mg PO DAILY [facility] Stop: 07/18/21 04:54 Last Admin: 06/25/21 09:00 Dose: 25 mg Documented by: Miscellaneous (Carbohydrates For Hypoglycemia ) 15 - 30 gm PO UD PRN PRN Reason: Hypoglycemia Protocol Stop: 07/18/21 08:12 Miscellaneous Information (Pharmacy Glycemic Mgmt Consult) 1 ea N/A UD PRN PRN Reason: Consult Stop: 07/23/21 16:20 Pantoprazole Sodium (Pantoprazole 40 Mg Tab) 40 mg PO HS [facility] Stop: 07/18/21 20:59 Last Admin: 06/24/21 20:12 Dose: 40 mg Documented by:
[2021-06-25] MEDS: FEXOFENADINE HCL 180 MG TAB PO SCH (21:33)
[2021-06-25] MEDS: PANTOprazole 40 MG TAB PO SCH (21:33)
[2021-06-25] MEDS: LEVOTHYROXINE SODIUM 150 MCG TABLET PO SCH (21:34)
[2021-06-26] MEDS: guaiFENesin SUGAR FREE 200 MG/10 ML UDC PO PRN ×3 (02:08→18:27)
[2021-06-26] MEDS: INSULIN ASPART 100 UNITS/ML 3 ML PEN SC SCH ×5 (02:37→21:30)
[2021-06-26 06:22] LABS: Hematocrit (blood only) 39.9 % (42-52); Hemoglobin 13.4 g/dL (14.0-18.0); Mean Corpuscular Hemoglobin 28.2 pg (25-34); Mean Corpuscular Hgb Conc 33.6 g/dL (32-36); Mean Platelet Volume 9.1 fL (7.4-10.4); Platelet Count 489 K/uL (130-400); RDW Coefficient of Variation 13.9 % (11.5-14.5); RDW Standard Deviation 42.7 fL (36.4-46.3); Red Blood Count 4.75 M/uL (4.7-6.1); White Blood Count 13.07 K/uL (4.8-10.8)
[2021-06-26 06:58] LABS: BUN Creatinine Ratio 28.7 (10-20); Calcium 9.2 mg/dl (8.5-10.1); Creatinine Clr Calc Pharmacy 97.8 ml/min; Est GFR (African American) 91.5 ml/min; Magnesium 2.1 mg/dl (1.8-2.4)
[2021-06-26] MEDS: ALBUTEROL HFA 8 GM INHALER INH SCH ×4 (07:42→19:49)
[2021-06-26] MEDS ORDERED: FUROSEMIDE 40 MG in SYRINGE 0 ML IV ONE ×2 (08:18→09:22)
[2021-06-26] MEDS ORDERED: POTASSIUM CHLORIDE CRTAB 20 MEQ TABCR PO STA (08:19)
[2021-06-26] MEDS ORDERED: FUROSEMIDE 40 MG/4 ML VIAL IV SCH (08:30)
[2021-06-26] MEDS: ASCORBIC ACID 500 MG TAB PO SCH ×2 (09:06→21:29)
[2021-06-26] MEDS: amLODIPine BESYLATE 5 MG TAB PO SCH (09:07)
[2021-06-26] MEDS: METOPROLOL SUCC 25MG EXT REL TAB PO SCH (09:07)
[2021-06-26] MEDS: CHOLECALCIFEROL 1,000 UNITS 25 MCG TAB PO SCH (09:07)
[2021-06-26] MEDS: ZINC SULFATE 220 MG CAPSULE PO SCH (09:07)
[2021-06-26] MEDS: BENZONATATE 100 MG CAPSULE PO SCH ×3 (09:07→21:30)
[2021-06-26] MEDS: ENOXAPARIN INJ 40 MG/0.4 ML SYR SQ SCH (09:08)
[2021-06-26] MEDS: FLUTICASONE/VILANTEROL 200/25MCG 14 PUFFS/INHALER INH SCH (09:08)
[2021-06-26] MEDS: dexAMETHasone 10 MG in SYRINGE 0 ML IV SCH (09:09)
[2021-06-26] MEDS: FLUTICASONE PROPIONATE NA SPR 16 GM BTL SCH (09:09)
[2021-06-26] MEDS: INSULIN HUMAN NPH SC SCH (09:09)
[2021-06-26] MEDS: INSULIN GLARGINE SOLOSTAR 100 UNITS/ML 3 ML PEN SC SCH (09:10)
--- NOTE | 2021-06-26 13:01 | Pharmacy Report ---
Pharmacy Glycemic Short Note 2 - Date of Service June 26, 2021 - Glycemic Short BSG Results (Last 24 hours): 06/25/21 06/25/21 06/26/21 16:43 20:14 02:05 Glucose POC Glucose 173 H 286 H 173 H 06/26/21 06/26/21 06/26/21 05:28 07:20 11:30 Glucose 192 H POC Glucose 174 H 219 H OUTPATIENT ANTIDIABETIC REGIMEN: * n/A * A1C 7.2% 06/18/21 * Previously diagnosed with pre-diabetes ASSESSMENT: 06/26 * 85 units SQ admin over last 24 hrs while tolerating diet * Fasting BSG elevated this AM, 174, however pt did receive additional IV dexamethasone yesterday mid-day which could have influenced AM results * Pt received 6mg and 10mg IV dexamethasone yesterday. Pt is now only ordered 10mg daily in the AM * Will increase prandial insulin doses today 06/25 * 82 units SQ administered over last 24 hours while tolerating diet * Fasting BSG 132 this AM with 10 units Lantus and 30 units NPH given yesterday * Post-prandial hyperglycemia observed w/ 2 of 3 meals yesterday, primarily following lunch and dinner - will titrate up NPH dose today 06/24 * 54 units SQ administered over last 24 hours while tolerating diet * Fasting BSG 150 this AM w/ 20 units basal on board * Will add NPH today (~0.35units/kg adj BW) to combat dexamethasone IV associated hyperglycemia * Will continue the "high" stress Novolog dosing for now, until we see the effects of NPH admin on post-prandial BSG rise 06/23 * Patient admitted with COVID-19 pneumonia, previously diagnosed with pre- diabetes and not currently on medications for diabetes * BSGs trending upward with dexamethasone use, in the 300s at dinner. Will tighten novolog to weight based stress of 3 as steroids most likely to affect prandial BSGs. * Fasting up to 147 mg/dL this morning, will increase lantus scale up to 15 units. Will consider addition of NPH with dexamethasone administration if prandial BSGs remain elevated with tightened novolog * Overnight checks tonight PLAN FOR INPATIENT GLYCEMIC CONTROL: * Hold outpatient oral diabetes medications * Basal insulin - no change * Lantus 10 Q AM * NPH 40 units Q AM - administered at the same time IV dexamethasone given * Bolus insulin - no change * NovoLog per scale ACHS or Q6hrs while NPO * Goal Range: Low 110 mg/dL - High 140 mg/dL * Correction Factor: 12 mg/dL/unit * Nutritional / Prandial insulin per carb ratio of 1 unit per 4 grams CHO consumed PLAN FOR DISCHARGE: * Given A1c of 7.2%, and recent receipt of outpt steroid therapy, would recomme nd lifestyle modifications on discharge with periodic SMBG and f/u A1c testing in a month or two to screen for DM.
--- NOTE | 2021-06-26 16:32 | Pulmonology Progress Note ---
Date of Service June 26, 2021 Assessment & Plan (1) Acute hypoxemic respiratory failure: (2) Pneumonia due to COVID-19 virus: (3) Mild persistent asthma: Plan: 56-year-old male with a past medical history of morbid obesity, mild persistent asthma and Graves' disease who presented to the hospital due to acute hypoxemic respiratory failure and viral pneumonia. COVID-19 viral pneumonia: Self and awake proning was strongly encouraged. There are no signs of acute bacterial infection at this time. Volume overload may also be playing a role given his body habitus and chest x-ray findings. Continue diuresis prn to achieve a negative fluid balance. Currently -8 L. Electrolytes and renal function acceptable. Continue Decadron 10 mg daily. Procalcitonin from 06/24/2021 0.37. Antibiotics not indicated at this time. He completed a course of remdesivir. He tested positve for COVID-19 on 06/12/2021. Patient was encouraged to keep his mouth closed as much as possible while on high flow oxygen to prevent desaturations. Acute hypoxemic respiratory failure: Continue titrating his oxygen levels to maintain saturations above 90%. High flow nasal cannula and CPAP can be used on an as-needed basis. Continue Lovenox for DVT prophylaxis. Asthma: I do not see evidence of an active exacerbation as he is not wheezing on exam. His ABG demonstrated a respiratory alkalosis with severe hypoxemia. He has a high risk for sudden decompensation requiring the need for intubation and mechanical ventilation. He verbally consents to intubation and mechanical ventilation if necessary. Admission and Anticipated Discharge Date Admission Date: June 18, 2021 Subjective Patient feeling less short of breath than yesterday. Currently on high flow at 65% FiO2 and 60 L. Good appetite. No fevers or chills. No chest pain. Cough present. Review of Systems Review of Systems: All systems reviewed & are unremarkable except as noted in HPI & below Physical Exam Physical Exam: Constitutional: Sitting up in bed with a high flow nasal cannula in place. No apparent distress. Eyes: Pupils are equal round and reactive to light. Conjunctivae are normal. Anicteric sclera. Ears nose, mouth and throat: No obvious focal deficits. Neck: Trachea is midline. Visual inspection is normal. Respiratory: Diminished to auscultation bilaterally. Mild tachypnea. Cardiovascular: Regular rate and rhythm. No murmurs. No significant edema. Gastrointestinal: Normal bowel sounds, soft, nontender and nondistended. No hepatosplenomegaly noted. Musculoskeletal: No cyanosis. Patient is able to move all extremities. Skin: No rashes, warm dry and intact. Neurologic: No obvious focal neurological deficits seen. Psychiatric: Alert and oriented x3 with a euthymic affect. Results & Data Results & Data ([facility]) Vital Signs (Past 12 Hours) Vital Signs Temp Pulse Pulse Pulse Resp BP BP 06/26/21 15:55 98.2 F 86 22 124/69 06/26/21 15:50 98 H 22 06/26/21 15:48 90 22 06/26/21 15:39 89 06/26/21 11:12 101 H 20 06/26/21 11:09 98.6 F 97 H 25 H 135/77 06/26/21 07:55 94 H 06/26/21 07:42 82 18 06/26/21 07:23 98.1 F 83 22 146/81 H Pulse Ox 06/26/21 15:55 92 06/26/21 15:50 92 06/26/21 15:48 92 06/26/21 15:39 06/26/21 11:12 89 L 06/26/21 11:09 91 06/26/21 07:55 06/26/21 07:42 89 L 06/26/21 07:23 92 Vital signs, labs and imaging are reviewed PG Care Time/CCT Total # of Minutes Spent Total Time Spent with Patient: Total time spent is greater than 50% in coordination of care (as documented) at patient's floor/unit and/or counseling patient: Coding Level of Care Code 03800 Subseq Hosp Care Lvl 2 Diagnoses Acute hypoxemic respiratory failure J96.01 Pneumonia due to COVID-19 virus U07.1; J12.82 Mild persistent asthma J45.30
[2021-06-26] MEDS ORDERED: COUGH DROP (SUGAR FREE) LOZ 24 LOZ/1 BOX BUCCAL ONE (17:17)
[2021-06-26] MEDS ORDERED: NURSING DECISION MEDICATION ONE (17:26)
[2021-06-26] MEDS ORDERED: COUGH DROP (SUGAR FREE) LOZ 24 LOZ/1 BOX BUCCAL PRN (17:27)
--- NOTE | 2021-06-26 19:39 | Hospitalist Progress Note ---
Date of Service June 26, 2021 Assessment & Plan (1) Acute hypoxemic respiratory failure: Plan: Acute upper respiratory failure secondary to multifocal Covid pneumonia. Patient has asthma at baseline. No wheezing on exam. No indication for antibiotics. Blood cultures reveal no growth to date. He completed a course of remdesivir and continues on dexamethasone daily (Day 9). Pulmonology is following. Lasix as needed to keep him net negative from a fluid balance standpoint overall. Nebulizer therapy as needed. Continue Lovenox for DVT prophylaxis. Continue proning as often as able, for which he reports compliance. Able to avoid intubation with repositioning and closing mouth when breathing. (2) DMII (diabetes mellitus, type 2): Plan: New diagnosis, HbA1C 7.2. Continue basal/bolus insulin therapy while hospitalized (3) Mild persistent asthma: Plan: Not in exacerbation-moving air well without wheezing. Cont current management. Pulm following. (4) Hypothyroidism: Plan: chronic, stable. Cont home levothyroxine. (5) HTN (hypertension): Plan: At goal-Continue amlodipine, Metoprolol (6) Obesity: Plan: weight loss recommended for overall general health (7) DVT prophylaxis: Plan: Lovenox Full Code Dispo-cont PCU monitoring Ramona Hicks DO [facility] Hospitalist Admission and Anticipated Discharge Date Admission Date: June 18, 2021 Subjective 56 yo M admitted with covid pneumonia Improved and now consistently on hi flow support Appears more comfortable with his breathing. Not quite proning but is able to move side to side. Some cough present. Review of Systems Review of Systems: At least ten systems were reviewed and negative except as indicated in HPI above. Physical Exam Physical Exam: CONSTITUTIONAL: obese, vitals as above, NAD EYES: normal conjunctivae, no scleral icterus ENT: external ear and nose normal,MMM, hi flow nasal canula in place. RESPIRATORY: clear to auscultation bilaterally, no crackles, rales or wheezes, normal respiratory effort, moving air well on auscultation CARDIOVASCULAR: tachy rate and rhythm, S1 and 2 heard without murmurs, gallops or rubs, no JVD, no peripheral edema GASTROINTESTINAL: abdomen not examined as he is prone. MUSCULOSKELETAL: strength 5/5 throughout, head is normocephalic and atraumatic SKIN: warm and dry NEUROLOGIC: CN 2-12 grossly intact, normal cognition, normal speech, no tremor, no gross focal deficit PSYCHIATRIC: alert cooperative and oriented to person, place and time. Results & Data Results & Data ([facility]) Vital Signs (Past 12 Hours) Vital Signs Temp Pulse Pulse Pulse Resp BP BP 06/26/21 19:13 36.5 C 91 H 20 139/77 06/26/21 15:55 36.8 C 86 22 124/69 06/26/21 15:50 98 H 22 06/26/21 15:48 90 22 06/26/21 15:39 89 06/26/21 11:12 101 H 20 06/26/21 11:09 37.0 C 97 H 25 H 135/77 06/26/21 07:55 94 H 06/26/21 07:42 82 18 Pulse Ox 06/26/21 19:13 94 06/26/21 15:55 92 06/26/21 15:50 92 06/26/21 15:48 92 06/26/21 15:39 06/26/21 11:12 89 L 06/26/21 11:09 91 06/26/21 07:55 06/26/21 07:42 89 L Laboratory Results Short CBC 06/26/21 Range/Units 05:28 WBC 13.07 H (4.8-10.8) K/uL Hgb 13.4 L (14.0-18.0) g/dL Hct 39.9 L (42-52) % Plt Count 489 H (130-400) K/uL BMP 06/26/21 05:28 Sodium 136 Potassium 4.0 Chloride 103 Carbon Dioxide 24 BUN 30 H Creatinine 1.05 Glucose 192 H Calcium 9.2 Medications Administered Current Inpatient Medications Acetaminophen (Acetaminophen 325 Mg Tab) 325 mg PO Q6H PRN PRN Reason: Mild Pain Stop: 07/18/21 03:39 Last Admin: 06/23/21 08:06 Dose: 325 mg Documented by: Albuterol (Albuterol Hfa 8 Gm Inhaler) 2 puffs INH QIDR [facility] Stop: 07/18/21 06:59 Last Admin: 06/26/21 15:47 Dose: 2 puffs Documented by: Amlodipine Besylate (Amlodipine Besylate 5 Mg Tab) 2.5 mg PO QAM [facility] Stop: 07/18/21 06:44 Last Admin: 06/26/21 09:07 Dose: 2.5 mg Documented by: Ascorbic Acid (Ascorbic Acid 500 Mg Tab) 500 mg PO Q12H MATI Stop: 07/26/21 08:59 Last Admin: 06/26/21 09:06 Dose: 500 mg Documented by: Benzonatate (Benzonatate 100 Mg Capsule) 100 mg PO TID MATI Stop: 07/24/21 23:44 Last Admin: 06/26/21 12:58 Dose: 100 mg Documented by: Dextrose (Dextrose 50% 50 Ml Syringe) 25 - 50 ml IV UD PRN; Protocol PRN Reason: Hypoglycemia Protocol Stop: 07/18/21 08:12 Enoxaparin Sodium (Enoxaparin Inj 40 Mg/0.4 Ml Syr) 40 mg SQ QAM MATI Stop: 07/18/21 08:59 Last Admin: 06/26/21 09:08 Dose: 40 mg Documented by: Fexofenadine HCl (Fexofenadine Hcl 180 Mg Tab) 180 mg PO HS MATI Stop: 07/18/21 20:59 Last Admin: 06/25/21 21:33 Dose: 180 mg Documented by: Fluticasone Propionate (Fluticasone Propionate Na Spr 16 Gm Btl) 2 sprays NA DAILY MATI Stop: 07/24/21 23:44 Last Admin: 06/26/21 09:09 Dose: 2 sprays Documented by: Fluticasone/Vilanterol (Fluticasone/Vilanterol 200/25mcg 14 Puffs/Inhaler) 1 puffs INH DAILY MATI; Protocol Stop: 07/18/21 08:59 Last Admin: 06/26/21 09:08 Dose: 1 puffs Documented by: Glucagon (Glucagon For Inj 1 Mg Vial) 1 mg SQ UD PRN; Protocol PRN Reason: Hypoglycemia Protocol Stop: 07/18/21 08:12 Glucose (Glucose 10 Tabs/Tube) 4 - 8 tabs PO UD PRN; Protocol PRN Reason: Hypoglycemia Protocol Stop: 07/18/21 08:12 Glucose (Glucose 40% Gel 15 Gm Tube) 15 - 30 gm PO UD PRN; Protocol PRN Reason: Hypoglycemia Protocol Stop: 07/18/21 08:12 Guaifenesin (Guaifenesin Sugar Free 200 Mg/10 Ml Udc) 200 mg PO Q6H PRN PRN Reason: Cough Stop: 07/26/21 00:33 Last Admin: 06/26/21 18:27 Dose: 200 mg Documented by: Promethazine HCl 12.5 mg/ (Sodium Chloride) 50.5 mls @ 202 mls/hr IV Q6H PRN PRN Reason: Nausea And Vomiting Stop: 07/18/21 03:39 Dexamethasone 10 mg/ Syringe 2.5 mls @ 1 mls/min IV DAILY [facility] Stop: 07/26/21 08:59 Last Admin: 06/26/21 09:09 Dose: 1 mls/min Documented by: Insulin Aspart (Insulin Aspart 100 Units/Ml 3 Ml Pen) 0 units SC ACHS [facility] Stop: 07/18/21 11:29 Last Admin: 06/26/21 17:18 Dose: 36 units Documented by: Insulin Aspart (Insulin Aspart 100 Units/Ml 3 Ml Pen) 0 units SC TODAY@0200 [facility] Stop: 07/25/21 01:59 Last Admin: 06/26/21 02:37 Dose: 3 units Documented by: Insulin Glargine (Insulin Glargine Solostar 100 Units/Ml 3 Ml Pen) 10 units SC QAM [facility] Stop: 07/24/21 08:59 Last Admin: 06/26/21 09:10 Dose: 10 units Documented by: Insulin Human NPH (Insulin Human Nph) 40 units SC DAILY@0900 [facility] Stop: 07/25/21 08:59 Last Admin: 06/26/21 09:09 Dose: 40 units Documented by: Levothyroxine Sodium (Levothyroxine Sodium 150 Mcg Tablet) 150 mcg PO HS [facility] Stop: 07/18/21 20:59 Last Admin: 06/25/21 21:34 Dose: 150 mcg Documented by: Menthol (Cough Drop (Sugar Free) Raajni 24 Rajani/1 Box) 1 rajani BUCCAL PRN PRN PRN Reason: Cough Stop: 07/26/21 17:26 Last Admin: 06/26/21 17:34 Dose: 1 rajani Documented by: Metoprolol Succinate (Metoprolol Succ 25mg Ext Rel Tab) 25 mg PO DAILY [facility] Stop: 07/18/21 04:54 Last Admin: 06/26/21 09:07 Dose: 25 mg Documented by: Miscellaneous (Carbohydrates For Hypoglycemia ) 15 - 30 gm PO UD PRN PRN Reason: Hypoglycemia Protocol Stop: 07/18/21 08:12 Miscellaneous Information (Pharmacy Glycemic Mgmt Consult) 1 ea N/A UD PRN PRN Reason: Consult Stop: 07/23/21 16:20 Pantoprazole Sodium (Pantoprazole 40 Mg Tab) 40 mg PO [facility] Stop: 07/18/21 20:59 Last Admin: 06/25/21 21:33 Dose: 40 mg Documented by: Vitamin D (Cholecalciferol 1,000 Units 25 Mcg Tab) [facility] Stop: 07/26/21 08:59 Last Admin: 06/26/21 09:07 Dose: 1,000 units Documented by: Zinc Sulfate (Zinc Sulfate 220 Mg Capsule) 220 [facility] Stop: 07/26/21 08:59 Last Admin: 06/26/21 09:07 Dose: 220 mg Documented by:
[2021-06-26] MEDS: PANTOprazole 40 MG TAB PO SCH (21:30)
[2021-06-26] MEDS: FEXOFENADINE HCL 180 MG TAB PO SCH (21:30)
[2021-06-26] MEDS: LEVOTHYROXINE SODIUM 150 MCG TABLET PO SCH (21:30)
[2021-06-27] MEDS: INSULIN ASPART 100 UNITS/ML 3 ML PEN SC SCH ×6 (00:55→21:45)
[2021-06-27] MEDS: ALBUTEROL HFA 8 GM INHALER INH SCH ×4 (07:20→22:27)
[2021-06-27] MEDS ORDERED: Nursing to Pharmacy Communication SCH (08:00)
[2021-06-27] MEDS: dexAMETHasone 10 MG in SYRINGE 0 ML IV SCH (08:14)
[2021-06-27] MEDS: CHOLECALCIFEROL 1,000 UNITS 25 MCG TAB PO SCH (08:14)
[2021-06-27] MEDS: ASCORBIC ACID 500 MG TAB PO SCH ×2 (08:14→21:44)
[2021-06-27] MEDS: FLUTICASONE/VILANTEROL 200/25MCG 14 PUFFS/INHALER INH SCH (08:15)
[2021-06-27] MEDS: METOPROLOL SUCC 25MG EXT REL TAB PO SCH (08:15)
[2021-06-27] MEDS: amLODIPine BESYLATE 5 MG TAB PO SCH (08:15)
[2021-06-27] MEDS: ZINC SULFATE 220 MG CAPSULE PO SCH (08:15)
[2021-06-27] MEDS: ENOXAPARIN INJ 40 MG/0.4 ML SYR SQ SCH (08:16)
[2021-06-27] MEDS: FLUTICASONE PROPIONATE NA SPR 16 GM BTL SCH (08:17)
[2021-06-27] MEDS: INSULIN GLARGINE SOLOSTAR 100 UNITS/ML 3 ML PEN SC SCH (08:21)
[2021-06-27] MEDS: INSULIN HUMAN NPH SC SCH (08:25)
[2021-06-27] MEDS: BENZONATATE 100 MG CAPSULE PO SCH ×3 (08:29→21:44)
[2021-06-27] MEDS ORDERED: SODIUM CHLORIDE 0.65% NA SOLN 45 ML (OCEAN) PRN (08:35)
--- NOTE | 2021-06-27 09:18 | XRay Report ---
XR chest 1V portable CLINICAL HISTORY: f/u COMPARISON STUDY: Chest radiograph June 24, 2021. FINDINGS: Lung volumes are normal. There is no pneumothorax or pleural effusion. Dense right upper lo be consolidation has progressed. Left upper lobe consolidation has also increased. Cardiac size is no rmal. IMPRESSION: Progression of bilateral airspace opacities consistent with viral pneumonia. ACT 112: Negative or not required by law. Electronically signed by: Akira Luna M.D. 06/27/2021 9:16 AM
--- NOTE | 2021-06-27 10:38 | Pharmacy Report ---
Pharmacy Glycemic Short Note 2 - Date of Service June 27, 2021 - Glycemic Short BSG Results (Last 24 hours): 06/26/21 06/26/21 06/26/21 11:30 16:30 16:30 POC Glucose 219 H 322 H* 316 H* 06/26/21 06/27/21 06/27/21 20:10 01:37 04:28 POC Glucose 306 H* 117 H 115 H 06/27/21 08:20 POC Glucose 115 H OUTPATIENT ANTIDIABETIC REGIMEN: * n/A * A1C 7.2% 06/18/21 * Previously diagnosed with pre-diabetes ASSESSMENT: 06/27 * Pt with SEVERE hyperglycemia last evening; possibly d/t additional dose of DXM given the day before vs uncovered snack? Pre-dinner BSG does tend to run high based on previous days data. Will tighten CR to combat pre-dinner hyperglycemia 06/26 * 85 units SQ admin over last 24 hrs while tolerating diet * Fasting BSG elevated this AM, 174, however pt did receive additional IV dexamethasone yesterday mid-day which could have influenced AM results * Pt received 6mg and 10mg IV dexamethasone yesterday. Pt is now only ordered 10mg daily in the AM * Will increase prandial insulin doses today 06/25 * 82 units SQ administered over last 24 hours while tolerating diet * Fasting BSG 132 this AM with 10 units Lantus and 30 units NPH given yesterday * Post-prandial hyperglycemia observed w/ 2 of 3 meals yesterday, primarily following lunch and dinner - will titrate up NPH dose today 06/24 * 54 units SQ administered over last 24 hours while tolerating diet * Fasting BSG 150 this AM w/ 20 units basal on board * Will add NPH today (~0.35units/kg adj BW) to combat dexamethasone IV associated hyperglycemia * Will continue the "high" stress Novolog dosing for now, until we see the effects of NPH admin on post-prandial BSG rise 06/23 * Patient admitted with COVID-19 pneumonia, previously diagnosed with pre- diabetes and not currently on medications for diabetes * BSGs trending upward with dexamethasone use, in the 300s at dinner. Will tighten novolog to weight based stress of 3 as steroids most likely to affect prandial BSGs. * Fasting up to 147 mg/dL this morning, will increase lantus scale up to 15 units. Will consider addition of NPH with dexamethasone administration if prandial BSGs remain elevated with tightened novolog * Overnight checks tonight PLAN FOR INPATIENT GLYCEMIC CONTROL: * Hold outpatient oral diabetes medications * Basal insulin - no change * Lantus 10 Q AM * NPH 40 units Q AM - administered at the same time IV dexamethasone given * Bolus insulin -tighten CR * NovoLog per scale ACHS or Q6hrs while NPO * Goal Range: Low 110 mg/dL - High 140 mg/dL * Correction Factor: 12 mg/dL/unit * Nutritional / Prandial insulin per carb ratio of 1 unit per 3 grams CHO consumed PLAN FOR DISCHARGE: * Given A1c of 7.2%, and recent receipt of outpt steroid therapy, would recommend lifestyle modifications on discharge with periodic SMBG and f/u A1c testing in a month or two to screen for DM.
[2021-06-27] MEDS ORDERED: INSULIN HUMAN NPH SC ONE (12:30)
--- NOTE | 2021-06-27 14:50 | Hospitalist Progress Note ---
Date of Service June 27, 2021 Assessment & Plan (1) Acute hypoxemic respiratory failure: Plan: Acute upper respiratory failure secondary to multifocal Covid pneumonia. Patient has asthma at baseline. No wheezing on exam. No indication for antibiotics. Blood cultures reveal no growth to date. He completed a course of remdesivir and continues on dexamethasone daily (Day 10). Pulmonology is following. He appears to be tolerating this level of steroids, so we will continue and discuss with pulmonary some type of taper. Lasix as needed to keep him net negative from a fluid balance standpoint overall. Nebulizer therapy as needed. Continue Lovenox for DVT prophylaxis. Continue proning as often as able. Cont to close mouth when breathing. (2) DMII (diabetes mellitus, type 2): Plan: New diagnosis, HbA1C 7.2. Continue basal/bolus insulin therapy while hospitalized (3) Mild persistent asthma: Plan: Not in exacerbation-moving air well without wheezing. Cont current management. Pulm following. (4) Hypothyroidism: Plan: chronic, stable. Cont home levothyroxine. (5) HTN (hypertension): Plan: At goal-Continue amlodipine, Metoprolol (6) Obesity: Plan: weight loss recommended for overall general health (7) DVT prophylaxis: Plan: Lovenox Full Code Dispo-cont PCU monitoring Ramona Hicks DO [facility] Hospitalist Admission and Anticipated Discharge Date Admission Date: June 18, 2021 Subjective 56 yo M admitted with covid pneumonia Stable on high flow support for oxygenation He is successfully proning today with significant prompting Tolerating p.o., afebrile, min to no cough Review of Systems Review of Systems: At least ten systems were reviewed and negative except as indicated in HPI above. Physical Exam Physical Exam: CONSTITUTIONAL: obese, vitals as above, NAD EYES: normal conjunctivae, no scleral icterus ENT: external ear and nose normal,MMM, hi flow nasal canula in place. RESPIRATORY: clear to auscultation bilaterally, no crackles, rales or wheezes, normal respiratory effort, moving air well on auscultation CARDIOVASCULAR: tachy rate and rhythm, S1 and 2 heard without murmurs, gallops or rubs, no JVD, no peripheral edema GASTROINTESTINAL: abdomen not examined as he is prone. MUSCULOSKELETAL: strength 5/5 throughout, head is normocephalic and atraumatic SKIN: warm and dry NEUROLOGIC: CN 2-12 grossly intact, normal cognition, normal speech, no tremor, no gross focal deficit PSYCHIATRIC: alert cooperative and oriented to person, place and time. Results & Data Results & Data ([facility]) Vital Signs (Past 12 Hours) Vital Signs Temp Pulse Pulse Resp BP BP Pulse Ox 06/27/21 11:29 98 H 20 91 06/27/21 11:27 98 H 20 91 06/27/21 07:59 37.0 C 82 23 135/92 91 06/27/21 07:43 96 H 26 H 91 06/27/21 03:11 36.7 C 85 22 137/81 93 06/27/21 03:00 Pulse Ox 06/27/21 11:29 06/27/21 11:27 06/27/21 07:59 06/27/21 07:43 06/27/21 03:11 06/27/21 03:00 90 Medications Administered Current Inpatient Medications Acetaminophen (Acetaminophen 325 Mg Tab) 325 mg PO Q6H PRN PRN Reason: Mild Pain Stop: 07/18/21 03:39 Last Admin: 06/23/21 08:06 Dose: 325 mg Documented by: Albuterol (Albuterol Hfa 8 Gm Inhaler) 2 puffs INH QIDR [facility] Stop: 07/18/21 06:59 Last Admin: 06/27/21 07:20 Dose: 2 puffs Documented by: Amlodipine Besylate (Amlodipine Besylate 5 Mg Tab) 2.5 mg PO QAM [facility] Stop: 07/18/21 06:44 Last Admin: 06/27/21 08:15 Dose: 2.5 mg Documented by: Ascorbic Acid (Ascorbic Acid 500 Mg Tab) 500 mg PO Q12H [facility] Stop: 07/26/21 08:59 Last Admin: 06/27/21 08:14 Dose: 500 mg Documented by: Benzonatate (Benzonatate 100 Mg Capsule) 100 mg PO TID [facility] Stop: 07/24/21 23:44 Last Admin: 06/27/21 14:01 Dose: 100 mg Documented by: Dextrose (Dextrose 50% 50 Ml Syringe) 25 - 50 ml IV UD PRN; Protocol PRN Reason: Hypoglycemia Protocol Stop: 07/18/21 08:12 Enoxaparin Sodium (Enoxaparin Inj 40 Mg/0.4 Ml Syr) 40 mg SQ QAM [facility] Stop: 07/18/21 08:59 Last Admin: 06/27/21 08:16 Dose: 40 mg Documented by: Fexofenadine HCl (Fexofenadine Hcl 180 Mg Tab) 180 mg PO HS [facility] Stop: 07/18/21 20:59 Last Admin: 06/26/21 21:30 Dose: 180 mg Documented by: Fluticasone Propionate (Fluticasone Propionate Na Spr 16 Gm Btl) 2 sprays NA DAILY [facility] Stop: 07/24/21 23:44 Last Admin: 06/27/21 08:17 Dose: 2 sprays Documented by: Fluticasone/Vilanterol (Fluticasone/Vilanterol 200/25mcg 14 Puffs/Inhaler) 1 puffs INH DAILY [facility]; Protocol Stop: 07/18/21 08:59 Last Admin: 06/27/21 08:15 Dose: 1 puffs Documented by: Glucagon (Glucagon For Inj 1 Mg Vial) 1 mg SQ UD PRN; Protocol PRN Reason: Hypoglycemia Protocol Stop: 07/18/21 08:12 Glucose (Glucose 10 Tabs/Tube) 4 - 8 tabs PO UD PRN; Protocol PRN Reason: Hypoglycemia Protocol Stop: 07/18/21 08:12 Glucose (Glucose 40% Gel 15 Gm Tube) 15 - 30 gm PO UD PRN; Protocol PRN Reason: Hypoglycemia Protocol Stop: 07/18/21 08:12 Guaifenesin (Guaifenesin Sugar Free 200 Mg/10 Ml Udc) 200 mg PO Q6H PRN PRN Reason: Cough Stop: 07/26/21 00:33 Last Admin: 06/26/21 18:27 Dose: 200 mg Documented by: Promethazine HCl 12.5 mg/ (Sodium Chloride) 50.5 mls @ 202 mls/hr IV Q6H PRN PRN Reason: Nausea And Vomiting Stop: 07/18/21 03:39 Dexamethasone 10 mg/ Syringe 2.5 mls @ 1 mls/min IV DAILY [facility] Stop: 07/26/21 08:59 Last Admin: 06/27/21 08:14 Dose: 1 mls/min Documented by: Insulin Aspart (Insulin Aspart 100 Units/Ml 3 Ml Pen) 0 units SC ACHS [facility] Stop: 07/18/21 11:29 Last Admin: 06/27/21 12:55 Dose: 33 units Documented by: Insulin Glargine (Insulin Glargine Solostar 100 Units/Ml 3 Ml Pen) [facility] Stop: 07/24/21 08:59 Last Admin: 06/27/21 08:21 Dose: 10 units Documented by: Insulin Human NPH (Insulin Human Nph) 50 units SC DAILY@0900 [facility] Stop: 07/28/21 08:59 Levothyroxine Sodium (Levothyroxine Sodium 150 Mcg Tablet) 150 mcg PO [facility] Stop: 07/18/21 20:59 Last Admin: 06/26/21 21:30 Dose: 150 mcg Documented by: Menthol (Cough Drop (Sugar Free) Rajani 24 Rajani/1 Box) 1 rajani BUCCAL PRN PRN PRN Reason: Cough Stop: 07/26/21 17:26 Last Admin: 06/26/21 17:34 Dose: 1 rajani Documented by: Metoprolol Succinate (Metoprolol Succ 25mg Ext Rel Tab) 25 mg PO DAILY [facility] Stop: 07/18/21 04:54 Last Admin: 06/27/21 08:15 Dose: 25 mg Documented by: Miscellaneous (Carbohydrates For Hypoglycemia ) 15 - 30 gm PO UD PRN PRN Reason: Hypoglycemia Protocol Stop: 07/18/21 08:12 Miscellaneous Information (Pharmacy Glycemic Mgmt Consult) 1 ea N/A UD PRN PRN Reason: Consult Stop: 07/23/21 16:20 Pantoprazole Sodium (Pantoprazole 40 Mg Tab) 40 mg PO [facility] Stop: 07/18/21 20:59 Last Admin: 06/26/21 21:30 Dose: 40 mg Documented by: Sodium Chloride (Sodium Chloride 0.65% Na Soln 45 Ml ([place])) 2 sprays NA Q4H PRN PRN Reason: Dryness Stop: 07/27/21 08:34 Vitamin D (Cholecalciferol 1,000 Units 25 Mcg Tab) 1,000 units PO [facility] Stop: 07/26/21 08:59 Last Admin: 06/27/21 08:14 Dose: 1,000 units Documented by: Zinc Sulfate (Zinc Sulfate 220 Mg Capsule) 220 mg PO [facility] Stop: 07/26/21 08:59 Last Admin: 06/27/21 08:15 Dose: 220 mg Documented by:
--- NOTE | 2021-06-27 18:08 | Pulmonology Progress Note ---
Date of Service June 27, 2021 Assessment & Plan (1) Acute hypoxemic respiratory failure: (2) Pneumonia due to COVID-19 virus: (3) Mild persistent asthma: Plan: 56-year-old male with a past medical history of morbid obesity, mild persistent asthma and Graves' disease who presented to the hospital due to acute hypoxemic respiratory failure and viral pneumonia. --Acute hypoxic respiratory failure Secondary to multilobar COVID-19 pneumonia COVID-19 PCR positive 06/12/2021 CRP 7.53 --> 13.6 --> 8.44 Procalcitonin 0.37 06/24/2021 --> 0.11 06/27/2021 S/p remdesivir Continue with dexamethasone for total of 10 days Continue with O2 supplementation to keep oxygen saturation between 90-92%. Awake proning will be helpful Continue with incentive spirometry Continue with flutter valve. --History of asthma Not in exacerbation Continue with Breo Plan: In/out: -1.2 L, urine output 1825, patient is -12 L since coming to the hospital Chest x-ray from today again shows diffuse bilateral opacities, slightly dense in the right upper lobe Procalcitonin is still negative Patient has completed a course of doxycycline since coming to the hospital. No indication for any more antibiotics Add guaifenesin Continue dexamethasone for 2 more days and then stop Please note the above document was generated using voice recognition software. It may contain grammatical, syntax or spelling errors.Any formal questions or concerns about the content, text or information contained within the body of this dictation should be directly addressed to the provider for clarification. Admission and Anticipated Discharge Date Admission Date: June 18, 2021 Subjective Patient seen and examined at bedside. No acute distress, no adverse events overnight Patient was on 60 L, 70% saturating 90-91% Not in any acute distress Patient just finished breakfast. Fair appetite Does complain of cough and is bringing up a good amount of phlegm. No hemoptysis. Urinating well. Review of Systems Review of Systems: All systems reviewed & are unremarkable except as noted in Subjective Physical Exam Physical Exam: Constitutional: No acute distress HEENT: EOMI, PERRLA Respiratory system: Decreased air entry bilaterally, no wheeze, rhonchi, positive crackles CVS: S1-S2 positive, no murmurs or gallops Abdomen: Soft, nontender, nondistended, positive bowel sounds x4, obese Extremities: +2 pulses bilaterally radialis/ dorsalis pedis, no cyanosis, +1 pitting edema bilateral lower extremity Neuro: Awake alert oriented x3 Psych: Normal mood and affect G/U: Positive [place] Results & Data Results & Data ([facility]) Vital Signs (Past 12 Hours) Vital Signs Temp Pulse Resp BP BP Pulse Ox 06/27/21 15:34 102 H 26 H 93 06/27/21 14:54 36.4 C L 87 26 H 115/65 92 06/27/21 11:29 98 H 20 91 06/27/21 11:27 98 H 20 06/27/21 07:59 37.0 C 82 23 135/92 06/27/21 07:43 96 H 26 H 06/26/21 05:28 06/26/21 05:28 PG Care Time/CCT Total # of Minutes Spent Total Time Spent with Patient: Total time spent is greater than 50% in coordination of care (as documented) at patient's floor/unit and/or counseling patient: [place] [address] Subseq Hosp Care Lvl 3 Patient Type Established Diagnoses Acute hypoxemic respiratory failure J96.01 Pneumonia due to COVID-19 virus U07.1; J12.82 Mild persistent asthma J45.30
[2021-06-27] MEDS: FEXOFENADINE HCL 180 MG TAB PO SCH (21:44)
[2021-06-27] MEDS: guaiFENesin 600 MG TABCR PO SCH (21:45)
[2021-06-27] MEDS: PANTOprazole 40 MG TAB PO SCH (21:46)
[2021-06-27] MEDS: LEVOTHYROXINE SODIUM 150 MCG TABLET PO SCH (21:46)
[2021-06-28] MEDS: ALBUTEROL HFA 8 GM INHALER INH SCH ×4 (07:17→19:13)
[2021-06-28] MEDS ORDERED: INSULIN HUMAN NPH SC SCH (09:00)
[2021-06-28 09:04] LABS: Basophils # (auto) 0.03 K/uL (0-0.2); Basophils % (auto) 0.1 %; Hematocrit (blood only) 43.2 % (42-52); Hemoglobin 14.5 g/dL (14.0-18.0); Immature Granulocytes # (auto) 0.49 K/uL (0.00-0.02); Immature Granulocytes % (auto) 2.3 %; Lymphocytes # (auto) 1.76 K/uL (1.2-3.4); Lymphocytes % (auto) 8.4 %; Mean Corpuscular Hemoglobin 28.4 pg (25-34); Mean Corpuscular Hgb Conc 33.6 g/dL (32-36); Mean Corpuscular Volume 84.7 fL (80-100); Mean Platelet Volume 8.9 fL (7.4-10.4); Monocytes # (auto) 1.53 K/uL (0.11-0.59); Monocytes % (auto) 7.3 %; Neutrophils % (auto) 81.9 %; Platelet Count 492 K/uL (130-400); RDW Standard Deviation 43.3 fL (36.4-46.3); White Blood Count 21.01 K/uL (4.8-10.8)
[2021-06-28] MEDS: CHOLECALCIFEROL 1,000 UNITS 25 MCG TAB PO SCH (09:19)
[2021-06-28] MEDS: dexAMETHasone 10 MG in SYRINGE 0 ML IV SCH (09:19)
[2021-06-28] MEDS: ASCORBIC ACID 500 MG TAB PO SCH ×2 (09:19→21:58)
[2021-06-28] MEDS: amLODIPine BESYLATE 5 MG TAB PO SCH (09:19)
[2021-06-28] MEDS: ZINC SULFATE 220 MG CAPSULE PO SCH (09:20)
[2021-06-28] MEDS: FLUTICASONE/VILANTEROL 200/25MCG 14 PUFFS/INHALER INH SCH (09:20)
[2021-06-28] MEDS: FLUTICASONE PROPIONATE NA SPR 16 GM BTL SCH (09:20)
[2021-06-28] MEDS: ENOXAPARIN INJ 40 MG/0.4 ML SYR SQ SCH (09:20)
[2021-06-28] MEDS: METOPROLOL SUCC 25MG EXT REL TAB PO SCH (09:21)
[2021-06-28] MEDS: INSULIN GLARGINE SOLOSTAR 100 UNITS/ML 3 ML PEN SC SCH (09:21)
[2021-06-28] MEDS: INSULIN ASPART 100 UNITS/ML 3 ML PEN SC SCH ×4 (09:22→21:59)
[2021-06-28 09:27] LABS: Albumin Level 2.4 gm/dl (3.4-5.0); BUN Creatinine Ratio 27.6 (10-20); C Reactive Protein 0.6 mg/dl (0-0.29); Calcium 8.7 mg/dl (8.5-10.1); Creatinine Clr Calc Pharmacy 97.6 ml/min; Est GFR (African American) 89.5 ml/min; Est GFR (Non-African American) 77.2 ml/min; Magnesium 2.5 mg/dl (1.8-2.4); Phosphorus 3.5 mg/dl (2.5-4.9); Potassium 4.1 mmol/L (3.5-5.1)
[2021-06-28 09:28] LABS: Albumin Globulin Ratio 0.6 (0.9-2); Bilirubin,Total 0.6 mg/dl (0.2-1); Total Protein 6.4 gm/dl (6.4-8.2)
--- NOTE | 2021-06-28 10:04 | Pharmacy Report ---
Pharmacy Glycemic Short Note 2 - Date of Service June 28, 2021 - Glycemic Short BSG Results (Last 24 hours): 06/27/21 06/27/21 06/27/21 12:10 17:11 20:07 Glucose POC Glucose 289 H 213 H 184 H 06/28/21 06/28/21 07:48 08:45 Glucose 109 H POC Glucose 98 OUTPATIENT ANTIDIABETIC REGIMEN: * n/A * A1C 7.2% 06/18/21 * Previously diagnosed with pre-diabetes ASSESSMENT: 06/28 * Pt has received 143 units of insulin over the past 24hrs * 10 units of basal with Lantus * 50 units (0.42 units/kg) of NPH for steroid induced hyperglycemia with dexamethasone * 83 units of bolus with NovoLog * Two more days of dexamethasone scheduled. Dex will dc after dose on 06/29. Will increase insulin again today as all BSGs elevated yesterday. Pt will require insulin dose decrease on 06/30 when dex is dc. 06/27 * Pt with SEVERE hyperglycemia last evening; possibly d/t additional dose of DXM given the day before vs uncovered snack? Pre-dinner BSG does tend to run high based on previous days data. Will tighten CR to combat pre-dinner hyperglycemia 06/26 * 85 units SQ admin over last 24 hrs while tolerating diet * Fasting BSG elevated this AM, 174, however pt did receive additional IV dexamethasone yesterday mid-day which could have influenced AM results * Pt received 6mg and 10mg IV dexamethasone yesterday. Pt is now only ordered 10mg daily in the AM * Will increase prandial insulin doses today 06/25 * 82 units SQ administered over last 24 hours while tolerating diet * Fasting BSG 132 this AM with 10 units Lantus and 30 units NPH given yesterday * Post-prandial hyperglycemia observed w/ 2 of 3 meals yesterday, primarily following lunch and dinner - will titrate up NPH dose today 06/24 * 54 units SQ administered over last 24 hours while tolerating diet * Fasting BSG 150 this AM w/ 20 units basal on board * Will add NPH today (~0.35units/kg adj BW) to combat dexamethasone IV associated hyperglycemia * Will continue the "high" stress Novolog dosing for now, until we see the effects of NPH admin on post-prandial BSG rise 06/23 * Patient admitted with COVID-19 pneumonia, previously diagnosed with pre- diabetes and not currently on medications for diabetes * BSGs trending upward with dexamethasone use, in the 300s at dinner. Will tighten novolog to weight based stress of 3 as steroids most likely to affect prandial BSGs. * Fasting up to 147 mg/dL this morning, will increase lantus scale up to 15 units. Will consider addition of NPH with dexamethasone administration if prandial BSGs remain elevated with tightened novolog * Overnight checks tonight PLAN FOR INPATIENT GLYCEMIC CONTROL: * Hold outpatient oral diabetes medications * Basal insulin * Lantus 10 Q AM * NPH 50 units Q AM - administered at the same time IV dexamethasone given * Bolus insulin * NovoLog per scale ACHS or Q6hrs while NPO * Goal Range: Low 110 mg/dL - High 140 mg/dL * Correction Factor: 10 mg/dL/unit * Nutritional / Prandial insulin per carb ratio of 1 unit per 3 grams CHO consumed PLAN FOR DISCHARGE: * Given A1c of 7.2%, and recent receipt of outpt steroid therapy, would recommend lifestyle modifications on discharge with periodic SMBG and f/u A1c testing in a month or two to screen for DM.
[2021-06-28] MEDS: BENZONATATE 100 MG CAPSULE PO SCH ×3 (10:07→21:58)
--- NOTE | 2021-06-28 10:47 | Hospitalist Progress Note ---
Date of Service June 28, 2021 Assessment & Plan (1) Acute hypoxemic respiratory failure: Plan: Acute upper respiratory failure secondary to multifocal Covid pneumonia. Patient has asthma at baseline. No wheezing on exam. No indication for antibiotics. Blood cultures reveal no growth to date. He completed a course of remdesivir and continues on dexamethasone daily (Day 11). Pulmonology is following. He appears to be tolerating this level of steroids, so we will continue and discuss with pulmonary some type of taper. Lasix as needed to keep him net negative from a fluid balance standpoint overall. Nebulizer therapy as needed. Continue Lovenox for DVT prophylaxis. Continue proning as often as able. Cont to close mouth when breathing. (2) Leukocytosis: Plan: New increasing-check urine to rule out secondary bacterial infection. Pending. (3) DMII (diabetes mellitus, type 2): Plan: New diagnosis, HbA1C 7.2. Continue basal/bolus insulin therapy while hospitalized (4) Mild persistent asthma: Plan: Not in exacerbation-moving air well without wheezing. Cont current management. Pulm following. (5) Hypothyroidism: Plan: chronic, stable. Cont home levothyroxine. (6) HTN (hypertension): Plan: At goal-Continue amlodipine, Metoprolol (7) Obesity: Plan: weight loss recommended for overall general health (8) DVT prophylaxis: Plan: Lovenox Full Code Dispo-cont PCU monitoring Ramona Hicks DO [facility] [address] Hospitalist Admission and Anticipated Discharge Date Admission Date: June 18, 2021 Subjective 56 yo M admitted with covid pneumonia Stable on high flow support for oxygenation He is successfully proning today with significant prompting Tolerating p.o., afebrile, min to no cough WBC increased today, urine pending, no additional symptoms, denies fevers/chills Review of Systems Review of Systems: At least ten systems were reviewed and negative except as indicated in HPI above. Physical Exam Physical Exam: CONSTITUTIONAL: obese, vitals as above, NAD EYES: normal conjunctivae, no scleral icterus ENT: external ear and nose normal,MMM, hi flow nasal canula in place. RESPIRATORY: clear to auscultation bilaterally, no crackles, rales or wheezes, normal respiratory effort, moving air well on auscultation CARDIOVASCULAR: tachy rate and rhythm, S1 and 2 heard without murmurs, gallops or rubs, no JVD, no peripheral edema GASTROINTESTINAL: abdomen not examined as he is prone. MUSCULOSKELETAL: strength 5/5 throughout, head is normocephalic and atraumatic SKIN: warm and dry NEUROLOGIC: CN 2-12 grossly intact, normal cognition, normal speech, no tremor, no gross focal deficit PSYCHIATRIC: alert cooperative and oriented to person, place and time. Results & Data Results & Data ([facility]) Vital Signs (Past 12 Hours) Vital Signs Temp Pulse Pulse Resp BP BP Pulse Ox 06/28/21 06:59 36.7 C 87 20 117/77 89 L 06/28/21 03:05 77 20 91 06/28/21 03:00 06/27/21 22:55 85 22 93 06/27/21 22:52 36.8 C 86 21 147/83 H 92 Pulse Ox 06/28/21 06:59 06/28/21 03:05 06/28/21 03:00 91 06/27/21 22:55 06/27/21 22:52 Laboratory Results Short CBC 06/28/21 Range/Units 08:45 WBC 21.01 H (4.8-10.8) K/uL Hgb 14.5 (14.0-18.0) g/dL Hct 43.2 (42-52) % Plt Count 492 H (130-400) K/uL BMP 06/28/21 08:45 Sodium 136 Potassium 4.1 Chloride 104 Carbon Dioxide 24 BUN 30 H Creatinine 1.07 Glucose 109 H Calcium 8.7 Liver Function 06/28/21 Range/Units 08:45 Total Bilirubin 0.6 (0.2-1) mg/dl AST 18 (15-37) U/L ALT 33 (12-78) U/L Alkaline Phosphatase 54 (45-117) U/L Albumin 2.4 L (3.4-5.0) gm/dl Medications Administered Current Inpatient Medications Acetaminophen (Acetaminophen 325 Mg Tab) 325 mg PO Q6H PRN PRN Reason: Mild Pain Stop: 07/18/21 03:39 Last Admin: 06/23/21 08:06 Dose: 325 mg Documented by: Albuterol (Albuterol Hfa 8 Gm Inhaler) 2 puffs INH QIDR [facility] Stop: 07/18/21 06:59 Last Admin: 06/28/21 07:17 Dose: 2 puffs Documented by: Amlodipine Besylate (Amlodipine Besylate 5 Mg Tab) 2.5 mg PO QAM [facility] Stop: 07/18/21 06:44 Last Admin: 06/28/21 09:19 Dose: 2.5 mg Documented by: Ascorbic Acid (Ascorbic Acid 500 Mg Tab) 500 mg PO Q12H [facility] Stop: 07/26/21 08:59 Last Admin: 06/28/21 09:19 Dose: 500 mg Documented by: Benzonatate (Benzonatate 100 Mg Capsule) 100 mg PO TID [facility] Stop: 07/24/21 23:44 Last Admin: 06/28/21 10:07 Dose: 100 mg Documented by: Dextrose (Dextrose 50% 50 Ml Syringe) 25 - 50 ml IV UD PRN; Protocol PRN Reason: Hypoglycemia Protocol Stop: 07/18/21 08:12 Enoxaparin Sodium (Enoxaparin Inj 40 Mg/0.4 Ml Syr) 40 mg SQ QAM [facility] Stop: 07/18/21 08:59 Last Admin: 06/28/21 09:20 Dose: 40 mg Documented by: Fexofenadine HCl (Fexofenadine Hcl 180 Mg Tab) 180 mg PO HS [facility] Stop: 07/18/21 20:59 Last Admin: 06/27/21 21:44 Dose: 180 mg Documented by: Fluticasone Propionate (Fluticasone Propionate Na Spr 16 Gm Btl) 2 sprays NA DAILY [facility] Stop: 07/24/21 23:44 Last Admin: 06/28/21 09:20 Dose: 2 sprays Documented by: Fluticasone/Vilanterol (Fluticasone/Vilanterol 200/25mcg 14 Puffs/Inhaler) 1 puffs INH DAILY [facility]; Protocol Stop: 07/18/21 08:59 Last Admin: 06/28/21 09:20 Dose: 1 puffs Documented by: Glucagon (Glucagon For Inj 1 Mg Vial) 1 mg SQ UD PRN; Protocol PRN Reason: Hypoglycemia Protocol Stop: 07/18/21 08:12 Glucose (Glucose 10 Tabs/Tube) 4 - 8 tabs PO UD PRN; Protocol PRN Reason: Hypoglycemia Protocol Stop: 07/18/21 08:12 Glucose (Glucose 40% Gel 15 Gm Tube) 15 - 30 gm PO UD PRN; Protocol PRN Reason: Hypoglycemia Protocol Stop: 07/18/21 08:12 Guaifenesin (Guaifenesin Sugar Free 200 Mg/10 Ml Udc) 200 mg PO Q6H PRN PRN Reason: Cough Stop: 07/26/21 00:33 Last Admin: 06/26/21 18:27 Dose: 200 mg Documented by: Guaifenesin (Guaifenesin 600 Mg Tabcr) 600 mg PO Q12 [facility] Stop: 07/27/21 20:59 Last Admin: 06/27/21 21:45 Dose: 600 mg Documented by: Promethazine HCl 12.5 mg/ (Sodium Chloride) 50.5 mls @ 202 mls/hr IV Q6H PRN PRN Reason: Nausea And Vomiting Stop: 07/18/21 03:39 Dexamethasone 10 mg/ Syringe 2.5 mls @ 1 mls/min IV DAILY [facility] Stop: 06/29/21 09:01 Last Admin: 06/28/21 09:19 Dose: 1 mls/min Documented by: Insulin Aspart (Insulin Aspart 100 Units/Ml 3 Ml Pen) 0 units SC ACHS [facility] Stop: 07/18/21 11:29 Last Admin: 06/28/21 09:22 Dose: 6 units Documented by: Insulin Glargine (Insulin Glargine Solostar 100 Units/Ml 3 Ml Pen) 10 units SC QAM [facility] Stop: 07/24/21 08:59 Last Admin: 06/28/21 09:21 Dose: 10 units Documented by: Insulin Human NPH (Insulin Human Nph) 50 units SC DAILY@0900 [facility] Stop: 07/28/21 08:59 Last Admin: 06/28/21 09:21 Dose: 50 units Documented by: Levothyroxine Sodium (Levothyroxine Sodium 150 Mcg Tablet) 150 mcg PO HS [facility] Stop: 07/18/21 20:59 Last Admin: 06/27/21 21:46 Dose: 150 mcg Documented by: Menthol (Cough Drop (Sugar Free) Rajani 24 Rajani/1 Box) 1 rajani BUCCAL PRN PRN PRN Reason: Cough Stop: 07/26/21 17:26 Last Admin: 06/26/21 17:34 Dose: 1 rajani Documented by: Metoprolol Succinate (Metoprolol Succ 25mg Ext Rel Tab) 25 mg PO DAILY [facility] Stop: 07/18/21 04:54 Last Admin: 06/28/21 09:21 Dose: 25 mg Documented by: Miscellaneous (Carbohydrates For Hypoglycemia ) 15 - 30 gm PO UD PRN PRN Reason: Hypoglycemia Protocol Stop: 07/18/21 08:12 Miscellaneous Information (Pharmacy Glycemic Mgmt Consult) 1 ea N/A UD PRN PRN Reason: Consult Stop: 07/23/21 16:20 Pantoprazole Sodium (Pantoprazole 40 Mg Tab) 40 mg PO [facility] Stop: 07/18/21 20:59 Last Admin: 06/27/21 21:46 Dose: 40 mg Documented by: Sodium Chloride (Sodium Chloride 0.65% Na Soln 45 Ml ([place])) 2 sprays NA Q4H PRN PRN Reason: Dryness Stop: 07/27/21 08:34 Vitamin D (Cholecalciferol 1,000 Units 25 Mcg Tab) 1,000 units PO [facility] Stop: 07/26/21 08:59 Last Admin: 06/28/21 09:19 Dose: 1,000 units Documented by: Zinc Sulfate (Zinc Sulfate 220 Mg Capsule) 220 mg PO [facility] Stop: 07/26/21 08:59 Last Admin: 06/28/21 09:20 Dose: 220 mg Documented by:
[2021-06-28] MEDS: guaiFENesin 600 MG TABCR PO SCH ×2 (11:41→21:58)
--- NOTE | 2021-06-28 12:02 | XRay Report ---
XR chest 1V portable CLINICAL HISTORY: covid+, persist hypoxia, inc WBC COMPARISON STUDY: June 27, 2021 FINDINGS: No definite pneumothorax seen however evaluation is slightly limited because left lung apex is obscur ed by patient's chin.. No pleural effusion. Redemonstration of the patchy mixed reticular and airspace opacities that are seen bilaterally, not s ignificantly changed since yesterday. Cardiomediastinal silhouette is stable. Pulmonary vasculature is obscured. Osseous structures: unremarkable IMPRESSION: 1. Multifocal pneumonia, stable since prior study performed yesterday. ACT 112: Negative or not required by law. The above report was generated using voice recognition software. It may contain grammatical, syntax o r spelling errors. Electronically signed by: Thi Holcomb DO 06/28/2021 12:00 PM
--- NOTE | 2021-06-28 12:41 | Pulmonology Progress Note ---
Date of Service June 28, 2021 Assessment & Plan (1) Acute hypoxemic respiratory failure: (2) Pneumonia due to COVID-19 virus: (3) Mild persistent asthma: Plan: 56-year-old male with a past medical history of morbid obesity, mild persistent asthma and Graves' disease who presented to the hospital due to acute hypoxemic respiratory failure and viral pneumonia. --Acute hypoxic respiratory failure Secondary to multilobar COVID-19 pneumonia COVID-19 PCR positive 06/12/2021 CRP 7.53 --> 13.6 --> 8.44 Procalcitonin 0.37 06/24/2021 --> 0.11 06/27/2021 S/p remdesivir Continue with dexamethasone for total of 10 days Continue with O2 supplementation to keep oxygen saturation between 90-92%. Awake proning will be helpful Continue with incentive spirometry Continue with flutter valve. --History of asthma Not in exacerbation Continue with Breo Plan: In/out: - 996, urine output 1476, patient is -12 L since coming to the hospital Chest x-ray from today again shows patchy opacities bilaterally. Procalcitonin again is negative No indication for antibiotics right now Continue dexamethasone for 1 more day and stop Patient's respiratory status has been stable since last couple of days. Continue titrating down O2 as much as possible to chemo saturation 88% or above Continue diuresis to keep the patient negative balance. Patient's creatinine is still stable Pulmonary will sign off. Please call directly with any questions. Please note the above document was generated using voice recognition software. It may contain grammatical, syntax or spelling errors.Any formal questions or concerns about the content, text or information contained within the body of this dictation should be directly addressed to the provider for clarification. Admission and Anticipated Discharge Date Admission Date: June 18, 2021 Subjective Patient seen and examined at bedside. No acute distress, no adverse events overnight. Patient was self proning at the time of examination He was on 50 L, 65% saturating 88% at the time of examination Denied any headache Does complain of nasal congestion. He has been using Flonase I might add Sudafed but may be couple of days to help with clearing the nasal congestion Denies any headache, no nausea vomiting Fair appetite Review of Systems Review of Systems: All systems reviewed & are unremarkable except as noted in Subjective Physical Exam Physical Exam: Constitutional: No acute distress HEENT: EOMI, PERRLA Respiratory system: Decreased air entry bilaterally, no wheeze, rhonchi, positive crackles CVS: S1-S2 positive, no murmurs or gallops Abdomen: Soft, nontender, nondistended, positive bowel sounds x4, obese Extremities: +2 pulses bilaterally radialis/ dorsalis pedis, no cyanosis, +1 pitting edema bilateral lower extremity Neuro: Awake alert oriented x3 Psych: Normal mood and affect G/U: Positive [place] Skin: no rashes, warm and dry Lymphatic: no cervical or axillary lymphadenopathy Results & Data Results & Data ([facility]) Vital Signs (Past 12 Hours) Vital Signs Temp Pulse Pulse Resp BP Pulse Ox Pulse Ox 06/28/21 11:39 105 H 26 H 90 06/28/21 11:08 36.7 C 104 H 18 136/62 88 L 06/28/21 06:59 36.7 C 87 20 117/77 89 L 06/28/21 03:05 77 20 91 06/28/21 03:00 91 06/28/21 08:45 06/28/21 08:45 PG Care Time/CCT Total # of Minutes Spent Total Time Spent with Patient: Total time spent is greater than 50% in coordination of care (as documented) at patient's floor/unit and/or counseling patient: Coding Level of Care Code 96744 Subseq Hosp Care Lvl 2 Diagnoses Acute hypoxemic respiratory failure J96.01 Pneumonia due to COVID-19 virus U07.1; J12.82 Mild persistent asthma J45.30
[2021-06-28 15:56] LABS: Appearance Urine Turbid (Clear); Bacteria Urine Automated 4+ (Negative); Bilirubin Urine Negative (Negative); Blood Urine 2+ (Negative); Color Urine Yellow; Epithelial Cell Urine Auto >30 /lpf (0-5); Glucose Urine UA Negative (Negative); Ketones Urine Negative (Negative); Leukocyte Esterase Urine 3+ (Negative); Nitrite Urine Positive (Negative); Specific Gravity Urine 1.022 (1.000-1.030); Urobilinogen Urine Negative (Negative); WBC Urine Automated >30 /hpf (0-5); pH Urine >= 9.0 (4.5-7.5)
[2021-06-28 15:58] LABS: Protein Urine 2+ (Negative)
[2021-06-28] MEDS: FEXOFENADINE HCL 180 MG TAB PO SCH (21:58)
[2021-06-28] MEDS: LEVOTHYROXINE SODIUM 150 MCG TABLET PO SCH (21:58)
[2021-06-28] MEDS: PANTOprazole 40 MG TAB PO SCH (21:58)
[2021-06-29 07:02] LABS: Hematocrit (blood only) 44.8 % (42-52); Hemoglobin 14.8 g/dL (14.0-18.0); Mean Corpuscular Hemoglobin 28.6 pg (25-34); Mean Corpuscular Volume 86.5 fL (80-100); Mean Platelet Volume 9.3 fL (7.4-10.4); Platelet Count 537 K/uL (130-400); RDW Coefficient of Variation 14.1 % (11.5-14.5); RDW Standard Deviation 44.3 fL (36.4-46.3); Red Blood Count 5.18 M/uL (4.7-6.1)
[2021-06-29] MEDS: ALBUTEROL HFA 8 GM INHALER INH SCH ×4 (07:22→18:58)
[2021-06-29 07:24] LABS: Basophils # (auto) 0.02 K/uL (0-0.2); Basophils % (auto) 0.1 %; Immature Granulocytes # (auto) 0.56 K/uL (0.00-0.02); Immature Granulocytes % (auto) 2.2 %; Lymphocytes # (auto) 1.55 K/uL (1.2-3.4); Lymphocytes % (auto) 6.1 %; Monocytes # (auto) 1.57 K/uL (0.11-0.59); Monocytes % (auto) 6.2 %; Neutrophils % (auto) 85.4 %
[2021-06-29 07:36] LABS: BUN Creatinine Ratio 28.7 (10-20); Calcium 8.8 mg/dl (8.5-10.1); Creatinine Clr Calc Pharmacy 108.1 ml/min
[2021-06-29] MEDS: INSULIN ASPART 100 UNITS/ML 3 ML PEN SC SCH ×5 (08:04→21:34)
[2021-06-29] MEDS: ASCORBIC ACID 500 MG TAB PO SCH ×2 (08:52→21:29)
[2021-06-29] MEDS: guaiFENesin 600 MG TABCR PO SCH ×2 (08:52→21:30)
[2021-06-29] MEDS: ZINC SULFATE 220 MG CAPSULE PO SCH (08:52)
[2021-06-29] MEDS: amLODIPine BESYLATE 5 MG TAB PO SCH (08:52)
[2021-06-29] MEDS: FLUTICASONE/VILANTEROL 200/25MCG 14 PUFFS/INHALER INH SCH (08:56)
[2021-06-29] MEDS: CHOLECALCIFEROL 1,000 UNITS 25 MCG TAB PO SCH (08:56)
[2021-06-29] MEDS: METOPROLOL SUCC 25MG EXT REL TAB PO SCH (08:56)
[2021-06-29] MEDS: ENOXAPARIN INJ 40 MG/0.4 ML SYR SQ SCH (08:57)
[2021-06-29] MEDS: FLUTICASONE PROPIONATE NA SPR 16 GM BTL SCH (08:57)
[2021-06-29] MEDS: dexAMETHasone 10 MG in SYRINGE 0 ML IV SCH (08:58)
[2021-06-29] MEDS ORDERED: INSULIN HUMAN NPH SC SCH ×2 (09:00)
[2021-06-29] MEDS: INSULIN GLARGINE SOLOSTAR 100 UNITS/ML 3 ML PEN SC SCH (09:07)
[2021-06-29] MEDS: BENZONATATE 100 MG CAPSULE PO SCH ×3 (09:16→21:29)
--- NOTE | 2021-06-29 09:41 | Hospitalist Progress Note ---
Date of Service June 29, 2021 Assessment & Plan (1) Acute hypoxemic respiratory failure: Plan: Acute upper respiratory failure secondary to multifocal Covid pneumonia. Patient has asthma at baseline. No wheezing on exam. No indication for antibiotics. Blood cultures reveal no growth to date. He completed a course of remdesivir and dexamethasone. Now off in setting of infection. Pulmonology is following. Lasix as needed to keep him net negative from a fluid balance standpoint overall. Nebulizer therapy as needed. Continue Lovenox for DVT prophylaxis. Continue proning as often as able. Cont to close mouth when breathing. (2) Catheter-associated urinary tract infection: Plan: Rocephin pending urine culture (3) Leukocytosis: Plan: 2/2 CAUTI-improved with abx therapy (4) DMII (diabetes mellitus, type 2): Plan: New diagnosis, HbA1C 7.2. Continue basal/bolus insulin therapy while hospitalized. Expect decreased need off steroids. (5) Mild persistent asthma: Plan: Not in exacerbation-moving air well without wheezing. Cont current management. Pulm following. (6) Hypothyroidism: Plan: chronic, stable. Cont home levothyroxine. (7) HTN (hypertension): Plan: At goal-Continue amlodipine, Metoprolol (8) Obesity: Plan: weight loss recommended for overall general health (9) DVT prophylaxis: Plan: Lovenox Full Code Dispo-cont PCU monitoring DO [facility] Hospitalist Admission and Anticipated Discharge Date Admission Date: June 18, 2021 Subjective 56 yo M admitted with covid pneumonia Stable on high flow support for oxygenation Continues to prone Hypoglycemia this morning because patient was not eating due to not feeling well likely secondary to UTI. CAUTI was found and Putnam catheter was removed. Rocephin was started and patient felt better. Review of Systems Review of Systems: At least ten systems were reviewed and negative except as indicated in HPI above. Physical Exam Physical Exam: CONSTITUTIONAL: obese, vitals as above, NAD EYES: normal conjunctivae, no scleral icterus ENT: external ear and nose normal,MMM, hi flow nasal canula in place. RESPIRATORY: clear to auscultation bilaterally, no crackles, rales or wheezes, normal respiratory effort, moving air well on auscultation CARDIOVASCULAR: tachy rate and rhythm, S1 and 2 heard without murmurs, gallops or rubs, no JVD, no peripheral edema GASTROINTESTINAL: abdomen not examined as he is prone. MUSCULOSKELETAL: strength 5/5 throughout, head is normocephalic and atraumatic SKIN: warm and dry NEUROLOGIC: CN 2-12 grossly intact, normal cognition, normal speech, no tremor, no gross focal deficit PSYCHIATRIC: alert cooperative and oriented to person, place and time. Results & Data Results & Data ([facility]) Vital Signs (Past 12 Hours) Vital Signs Temp Pulse Pulse Resp BP BP Pulse Ox 06/29/21 07:26 104 H 28 H 88 L 06/29/21 07:19 36.7 C 107 H 24 143/69 H 87 L 06/29/21 04:26 36.7 C 95 H 24 145/77 H 87 L 06/29/21 03:00 86 20 91 06/28/21 23:00 36.6 C 88 20 123/70 92 06/28/21 22:32 92 H 18 91 Pulse Ox 06/29/21 07:26 06/29/21 07:19 06/29/21 04:26 06/29/21 03:00 90 06/28/21 23:00 06/28/21 22:32 Laboratory Results Short CBC 06/29/21 Range/Units 06:00 WBC 25.30 H (4.8-10.8) K/uL Hgb 14.8 (14.0-18.0) g/dL Hct 44.8 (42-52) % Plt Count 537 H (130-400) K/uL BMP 06/29/21 06:00 Sodium 137 Potassium 4.0 Chloride 106 Carbon Dioxide 23 BUN 28 H Creatinine 0.96 Glucose 63 L Calcium 8.8 Urine 06/28/21 Range/Units 15:45 Urine Color Yellow Urine Appearance Turbid A (Clear) Urine pH >= 9.0 H (4.5-7.5) Ur Specific [place] 1.022 (1.000-1.030) Urine Protein 2+ H (Negative) Urine Glucose (UA) Negative (Negative) Medications Administered Current Inpatient Medications Acetaminophen (Acetaminophen 325 Mg Tab) 325 mg PO Q6H PRN PRN Reason: Mild Pain Stop: 07/18/21 03:39 Last Admin: 06/23/21 08:06 Dose: 325 mg Documented by: Albuterol (Albuterol Hfa 8 Gm Inhaler) 2 puffs INH QIDR [facility] Stop: 07/18/21 06:59 Last Admin: 06/29/21 07:22 Dose: 2 puffs Documented by: Amlodipine Besylate (Amlodipine Besylate 5 Mg Tab) 2.5 mg PO QAM [facility] Stop: 07/18/21 06:44 Last Admin: 06/29/21 08:52 Dose: 2.5 mg Documented by: Ascorbic Acid (Ascorbic Acid 500 Mg Tab) 500 mg PO Q12H [facility] Stop: 07/26/21 08:59 Last Admin: 06/29/21 08:52 Dose: 500 mg Documented by: Benzonatate (Benzonatate 100 Mg Capsule) 100 mg PO TID [facility] Stop: 07/24/21 23:44 Last Admin: 06/29/21 09:16 Dose: 100 mg Documented by: Dextrose (Dextrose 50% 50 Ml Syringe) 25 - 50 ml IV UD PRN; Protocol PRN Reason: Hypoglycemia Protocol Stop: 07/18/21 08:12 Enoxaparin Sodium (Enoxaparin Inj 40 Mg/0.4 Ml Syr) 40 mg SQ QAM [facility] Stop: 07/18/21 08:59 Last Admin: 06/29/21 08:57 Dose: 40 mg Documented by: Fexofenadine HCl (Fexofenadine Hcl 180 Mg Tab) 180 mg PO HS [facility] Stop: 07/18/21 20:59 Last Admin: 06/28/21 21:58 Dose: 180 mg Documented by: Fluticasone Propionate (Fluticasone Propionate Na Spr 16 Gm Btl) 2 sprays NA DAILY [facility] Stop: 07/24/21 23:44 Last Admin: 06/29/21 08:57 Dose: 2 sprays Documented by: Fluticasone/Vilanterol (Fluticasone/Vilanterol 200/25mcg 14 Puffs/Inhaler) 1 puffs INH DAILY [facility]; Protocol Stop: 07/18/21 08:59 Last Admin: 06/29/21 08:56 Dose: 1 puffs Documented by: Glucagon (Glucagon For Inj 1 Mg Vial) 1 mg SQ UD PRN; Protocol PRN Reason: Hypoglycemia Protocol Stop: 07/18/21 08:12 Glucose (Glucose 10 Tabs/Tube) 4 - 8 tabs PO UD PRN; Protocol PRN Reason: Hypoglycemia Protocol Stop: 07/18/21 08:12 Glucose (Glucose 40% Gel 15 Gm Tube) 15 - 30 gm PO UD PRN; Protocol PRN Reason: Hypoglycemia Protocol Stop: 07/18/21 08:12 Guaifenesin (Guaifenesin Sugar Free 200 Mg/10 Ml Udc) 200 mg PO Q6H PRN PRN Reason: Cough Stop: 07/26/21 00:33 Last Admin: 06/26/21 18:27 Dose: 200 mg Documented by: Guaifenesin (Guaifenesin 600 Mg Tabcr) 600 mg PO Q12 [facility] Stop: 07/27/21 20:59 Last Admin: 06/29/21 08:52 Dose: 600 mg Documented by: Promethazine HCl 12.5 mg/ (Sodium Chloride) 50.5 mls @ 202 mls/hr IV Q6H PRN PRN Reason: Nausea And Vomiting Stop: 07/18/21 03:39 Ceftriaxone Sodium 2,000 mg/ (Dextrose) 70 mls @ 100 mls/hr IV DAILY [facility]; Protocol Stop: 07/09/21 09:44 Insulin Aspart (Insulin Aspart 100 Units/Ml 3 Ml Pen) 0 units SC AC [facility] Stop: 07/29/21 07:29 Last Admin: 06/29/21 09:01 Dose: 13 units Documented by: Insulin Aspart (Insulin Aspart 100 Units/Ml 3 Ml Pen) 0 units SC [facility] Stop: 07/29/21 20:59 Insulin Glargine (Insulin Glargine Solostar 100 Units/Ml 3 Ml Pen) [facility] Stop: 07/24/21 08:59 Last Admin: 06/29/21 09:07 Dose: 10 units Documented by: Levothyroxine Sodium (Levothyroxine Sodium 150 Mcg Tablet) 150 mcg PO [facility] Stop: 07/18/21 20:59 Last Admin: 06/28/21 21:58 Dose: 150 mcg Documented by: Menthol (Cough Drop (Sugar Free) Aram 24 Aram/1 Box) 1 aram BUCCAL PRN PRN PRN Reason: Cough Stop: 07/26/21 17:26 Last Admin: 06/26/21 17:34 Dose: 1 aram Documented by: Metoprolol Succinate (Metoprolol Succ 25mg Ext Rel Tab) 25 mg PO DAILY [facility] Stop: 07/18/21 04:54 Last Admin: 06/29/21 08:56 Dose: 25 mg Documented by: Miscellaneous (Carbohydrates For Hypoglycemia ) 15 - 30 gm PO UD PRN PRN Reason: Hypoglycemia Protocol Stop: 07/18/21 08:12 Miscellaneous Information (Pharmacy Glycemic Mgmt Consult) 1 ea N/A UD PRN PRN Reason: Consult Stop: 07/23/21 16:20 Pantoprazole Sodium (Pantoprazole 40 Mg Tab) 40 mg PO [facility] Stop: 07/18/21 20:59 Last Admin: 06/28/21 21:58 Dose: 40 mg Documented by: Sodium Chloride (Sodium Chloride 0.65% Na Soln 45 Ml ([place])) 2 sprays NA Q4H PRN PRN Reason: Dryness Stop: 07/27/21 08:34 Vitamin D (Cholecalciferol 1,000 Units 25 Mcg Tab) 1,[facility] Stop: 07/26/21 08:59 Last Admin: 06/29/21 08:56 Dose: 1,000 units Documented by: Zinc Sulfate (Zinc Sulfate 220 Mg Capsule) [facility] Stop: 07/26/21 08:59 Last Admin: 06/29/21 08:52 Dose: 220 mg Documented by:
--- NOTE | 2021-06-29 11:08 | Pharmacy Report ---
Pharmacy Glycemic Short Note 2 - Date of Service June 29, 2021 - Glycemic Short BSG Results (Last 24 hours): 06/28/21 06/28/21 06/28/21 11:59 15:37 20:11 Glucose POC Glucose 233 H 187 H 228 H 06/28/21 06/29/21 06/29/21 21:45 06:00 07:16 Glucose 63 L POC Glucose 186 H 65 L* 06/29/21 07:17 Glucose POC Glucose 70 OUTPATIENT ANTIDIABETIC REGIMEN: * n/A * A1C 7.2% 06/18/21 * Previously diagnosed with pre-diabetes ASSESSMENT: 06/29 * 117 units SQ given over last 24 hrs while tolerating a diet * Fasting BSG 63 this AM w/ 10 units Lantus on board and after receiving 50 units NPH yesterday - will decrease NPH dose today as a precaution * Post-prandial hyperglycemia continued yesterday, however slightly improved vs previous days * Will increase prandial insulin doses today as NPH dose will be reduced. Will give less Novolog doses at HS to help prevent fasting AM lows * It appears that today is the final day of Dexamethasone 10mg IV - insulin doses to be reassessed tomorrow AM 06/28 * Pt has received 143 units of insulin over the past 24hrs * 10 units of basal with Lantus * 50 units (0.42 units/kg) of NPH for steroid induced hyperglycemia with dexamethasone * 83 units of bolus with NovoLog * Two more days of dexamethasone scheduled. Dex will dc after dose on 06/29. Will increase insulin again today as all BSGs elevated yesterday. Pt will require insulin dose decrease on 06/30 when dex is dc. 06/27 * Pt with SEVERE hyperglycemia last evening; possibly d/t additional dose of DXM given the day before vs uncovered snack? Pre-dinner BSG does tend to run high based on previous days data. Will tighten CR to combat pre-dinner hyperglycemia 06/26 * 85 units SQ admin over last 24 hrs while tolerating diet * Fasting BSG elevated this AM, 174, however pt did receive additional IV dexamethasone yesterday mid-day which could have influenced AM results * Pt received 6mg and 10mg IV dexamethasone yesterday. Pt is now only ordered 10mg daily in the AM * Will increase prandial insulin doses today PLAN FOR INPATIENT GLYCEMIC CONTROL: * Hold outpatient oral diabetes medications * Basal insulin * Lantus 10 Q AM * NPH 40 units Q AM - administered at the same time IV dexamethasone given * Bolus insulin * NovoLog per scale ACHS or Q6hrs while NPO * Goal Range: Low 110 mg/dL - High 140 mg/dL * Correction Factor: 9 mg/dL/unit with meals; 15 mg/dL/unit at HS * Nutritional / Prandial insulin per carb ratio of 1 unit per 2.5 grams CHO consumed with meals; 1 unit per 5 grams CHO consumed HS PLAN FOR DISCHARGE: * Given A1c of 7.2%, and recent receipt of outpt steroid therapy, would recomm end lifestyle modifications on discharge with periodic SMBG and f/u A1c testing in a month or two to screen for DM.
[2021-06-29] MEDS: cefTRIAXone SODIUM 2,000 MG in DEXTROSE 5% 50 ML IV SCH (11:44)
[2021-06-29] MEDS: LEVOTHYROXINE SODIUM 150 MCG TABLET PO SCH (21:30)
[2021-06-29] MEDS: FEXOFENADINE HCL 180 MG TAB PO SCH (21:30)
[2021-06-29] MEDS: PANTOprazole 40 MG TAB PO SCH (21:31)
[2021-06-30 06:22] LABS: Hematocrit (blood only) 40.4 % (42-52); Hemoglobin 13.5 g/dL (14.0-18.0); Mean Corpuscular Hemoglobin 28.4 pg (25-34); Mean Corpuscular Hgb Conc 33.4 g/dL (32-36); Mean Corpuscular Volume 84.9 fL (80-100); Platelet Count 317 K/uL (130-400); RDW Standard Deviation 43.5 fL (36.4-46.3); Red Blood Count 4.76 M/uL (4.7-6.1); White Blood Count 21.97 K/uL (4.8-10.8)
[2021-06-30 06:47] LABS: Albumin Level 2.2 gm/dl (3.4-5.0); BUN Creatinine Ratio 27.8 (10-20); Calcium 8.3 mg/dl (8.5-10.1); Creatinine Clr Calc Pharmacy 114.4 ml/min; Est GFR (African American) 111.3 ml/min; Potassium 4.3 mmol/L (3.5-5.1)
[2021-06-30 06:49] LABS: Albumin Globulin Ratio 0.6 (0.9-2); Bilirubin,Total 0.5 mg/dl (0.2-1); C Reactive Protein 10.5 mg/dl (0-0.29); Globulin 3.7 gm/dl (2.5-4.0); Total Protein 5.9 gm/dl (6.4-8.2)
[2021-06-30] MEDS: ALBUTEROL HFA 8 GM INHALER INH SCH ×4 (07:20→19:32)
[2021-06-30] MEDS: ASCORBIC ACID 500 MG TAB PO SCH ×2 (08:00→21:28)
[2021-06-30] MEDS: cefTRIAXone SODIUM 2,000 MG in DEXTROSE 5% 50 ML IV SCH (08:00)
[2021-06-30] MEDS: guaiFENesin 600 MG TABCR PO SCH ×2 (08:01→21:29)
[2021-06-30] MEDS: FLUTICASONE PROPIONATE NA SPR 16 GM BTL SCH (08:01)
[2021-06-30] MEDS: FLUTICASONE/VILANTEROL 200/25MCG 14 PUFFS/INHALER INH SCH (08:02)
[2021-06-30] MEDS: METOPROLOL SUCC 25MG EXT REL TAB PO SCH (08:03)
[2021-06-30] MEDS: amLODIPine BESYLATE 5 MG TAB PO SCH (08:03)
[2021-06-30] MEDS: ENOXAPARIN INJ 40 MG/0.4 ML SYR SQ SCH (08:03)
[2021-06-30] MEDS: ZINC SULFATE 220 MG CAPSULE PO SCH (08:03)
[2021-06-30] MEDS: CHOLECALCIFEROL 1,000 UNITS 25 MCG TAB PO SCH (08:03)
[2021-06-30] MEDS: INSULIN ASPART 100 UNITS/ML 3 ML PEN SC SCH ×4 (08:55→21:29)
[2021-06-30] MEDS: INSULIN GLARGINE SOLOSTAR 100 UNITS/ML 3 ML PEN SC SCH (08:55)
[2021-06-30] MEDS: BENZONATATE 100 MG CAPSULE PO SCH ×3 (10:49→21:29)
--- NOTE | 2021-06-30 16:00 | Hospitalist Progress Note ---
Date of Service June 30, 2021 Assessment & Plan (1) Acute hypoxemic respiratory failure: Plan: Acute upper respiratory failure secondary to multifocal Covid pneumonia. Patient has asthma at baseline. No wheezing on exam. No indication for antibiotics. Blood cultures reveal no growth to date. He completed a course of remdesivir and completed course of dexamethasone. Pulmonology is following. Lasix as needed to keep him net negative from a fluid balance standpoint overall. Nebulizer therapy as needed. Continue Lovenox for DVT prophylaxis. Continue proning as often as able. Cont to close mouth when breathing. Concern with ongoing tachycardia and high level oxygen needs for prolonged support. Considering PE as possibility. CT PE now to rule out PE. (2) Leukocytosis: Plan: Improved on antibiotic therapy. (3) DMII (diabetes mellitus, type 2): Plan: New diagnosis, HbA1C 7.2. Continue basal/bolus insulin therapy while hospitalized (4) Mild persistent asthma: Plan: Not in exacerbation-moving air well without wheezing. Cont current management. Pulm following. (5) Hypothyroidism: Plan: chronic, stable. Cont home levothyroxine. (6) HTN (hypertension): Plan: At goal-Continue amlodipine, Metoprolol (7) Obesity: Plan: weight loss recommended for overall general health (8) DVT prophylaxis: Plan: Lovenox Full Code Dispo-cont PCU monitoring Ramona Hicks DO [facility] Hospitalist (9) Catheter-associated urinary tract infection: Admission and Anticipated Discharge Date Admission Date: June 18, 2021 Subjective 56 yo M admitted with covid pneumonia Stable on high flow support for oxygenation proning today Nurse encouraging him to get OOB to chair Fever overnight. Blood cultures negative so far. Feeling much better today than yesterday. Review of Systems Review of Systems: At least ten systems were reviewed and negative except as indicated in HPI above. Physical Exam Physical Exam: CONSTITUTIONAL: obese, vitals as above, NAD EYES: normal conjunctivae, no scleral icterus ENT: external ear and nose normal,MMM, hi flow nasal canula in place. RESPIRATORY: clear to auscultation bilaterally, no crackles, rales or wheezes, normal respiratory effort, moving air well on auscultation CARDIOVASCULAR: tachy rate and rhythm, S1 and 2 heard without murmurs, gallops or rubs, no JVD, no peripheral edema GASTROINTESTINAL: abdomen not examined as he is prone. MUSCULOSKELETAL: strength 5/5 throughout, head is normocephalic and atraumatic SKIN: warm and dry NEUROLOGIC: CN 2-12 grossly intact, normal cognition, normal speech, no tremor, no gross focal deficit PSYCHIATRIC: alert cooperative and oriented to person, place and time. Results & Data Results & Data ([facility]) Vital Signs (Past 12 Hours) Vital Signs Temp Pulse Pulse Resp BP Pulse Ox 06/30/21 11:38 36.7 C 96 H 18 112/56 L 95 06/30/21 10:51 98 H 18 93 06/30/21 10:34 71 06/30/21 07:20 86 20 93 06/30/21 07:05 36.6 C 83 18 135/68 89 L 06/30/21 04:22 36.7 C 80 18 120/63 92 Laboratory Results Short CBC 06/30/21 Range/Units 05:35 WBC 21.97 H (4.8-10.8) K/uL Hgb 13.5 L (14.0-18.0) g/dL Hct 40.4 L (42-52) % Plt Count 317 (130-400) K/uL BMP 06/30/21 05:35 Sodium 136 Potassium 4.3 Chloride 108 H Carbon Dioxide 24 BUN 24 H Creatinine 0.88 Glucose 133 H Calcium 8.3 L Liver Function 06/30/21 Range/Units 05:35 Total Bilirubin 0.5 (0.2-1) mg/dl AST 9 L (15-37) U/L ALT 32 (12-78) U/L Alkaline Phosphatase 62 (45-117) U/L Albumin 2.2 L (3.4-5.0) gm/dl Medications Administered Current Inpatient Medications Acetaminophen (Acetaminophen 325 Mg Tab) 325 mg PO Q6H PRN PRN Reason: Mild Pain Stop: 07/18/21 03:39 Last Admin: 06/23/21 08:06 Dose: 325 mg Documented by: Albuterol (Albuterol Hfa 8 Gm Inhaler) 2 puffs INH QIDR [facility] Stop: 07/18/21 06:59 Last Admin: 06/30/21 15:44 Dose: 2 puffs Documented by: Amlodipine Besylate (Amlodipine Besylate 5 Mg Tab) 2.5 mg PO QAM [facility] Stop: 07/18/21 06:44 Last Admin: 06/30/21 08:03 Dose: 2.5 mg Documented by: Ascorbic Acid (Ascorbic Acid 500 Mg Tab) 500 mg PO Q12H [facility] Stop: 07/26/21 08:59 Last Admin: 06/30/21 08:00 Dose: 500 mg Documented by: Benzonatate (Benzonatate 100 Mg Capsule) 100 mg PO TID [facility] Stop: 07/24/21 23:44 Last Admin: 06/30/21 10:49 Dose: 100 mg Documented by: Dextrose (Dextrose 50% 50 Ml Syringe) 25 - 50 ml IV UD PRN; Protocol PRN Reason: Hypoglycemia Protocol Stop: 07/18/21 08:12 Enoxaparin Sodium (Enoxaparin Inj 40 Mg/0.4 Ml Syr) 40 mg SQ QAM [facility] Stop: 07/18/21 08:59 Last Admin: 06/30/21 08:03 Dose: 40 mg Documented by: Fexofenadine HCl (Fexofenadine Hcl 180 Mg Tab) 180 mg PO HS [facility] Stop: 07/18/21 20:59 Last Admin: 06/29/21 21:30 Dose: 180 mg Documented by: Fluticasone Propionate (Fluticasone Propionate Na Spr 16 Gm Btl) 2 sprays NA DAILY [facility] Stop: 07/24/21 23:44 Last Admin: 06/30/21 08:01 Dose: 2 sprays Documented by: Fluticasone/Vilanterol (Fluticasone/Vilanterol 200/25mcg 14 Puffs/Inhaler) 1 puffs INH DAILY [facility]; Protocol Stop: 07/18/21 08:59 Last Admin: 06/30/21 08:02 Dose: 1 puffs Documented by: Glucagon (Glucagon For Inj 1 Mg Vial) 1 mg SQ UD PRN; Protocol PRN Reason: Hypoglycemia Protocol Stop: 07/18/21 08:12 Glucose (Glucose 10 Tabs/Tube) 4 - 8 tabs PO UD PRN; Protocol PRN Reason: Hypoglycemia Protocol Stop: 07/18/21 08:12 Glucose (Glucose 40% Gel 15 Gm Tube) 15 - 30 gm PO UD PRN; Protocol PRN Reason: Hypoglycemia Protocol Stop: 07/18/21 08:12 Guaifenesin (Guaifenesin Sugar Free 200 Mg/10 Ml Udc) 200 mg PO Q6H PRN PRN Reason: Cough Stop: 07/26/21 00:33 Last Admin: 06/26/21 18:27 Dose: 200 mg Documented by: Guaifenesin (Guaifenesin 600 Mg Tabcr) 600 mg PO Q12 [facility] Stop: 07/27/21 20:59 Last Admin: 06/30/21 08:01 Dose: 600 mg Documented by: Promethazine HCl 12.5 mg/ (Sodium Chloride) 50.5 mls @ 202 mls/hr IV Q6H PRN PRN Reason: Nausea And Vomiting Stop: 07/18/21 03:39 Ceftriaxone Sodium 2,000 mg/ (Dextrose) 70 mls @ 100 mls/hr IV DAILY [facility]; Protocol Stop: 07/09/21 09:44 Last Infusion: 06/30/21 08:50 Dose: Infused Documented by: Insulin Aspart (Insulin Aspart 100 Units/Ml 3 Ml Pen) 0 units SC AC [facility] Stop: 07/29/21 07:29 Last Admin: 06/30/21 13:03 Dose: 20 units Documented by: Insulin Aspart (Insulin Aspart 100 Units/Ml 3 Ml Pen) 0 units SC [facility] Stop: 07/29/21 20:59 Last Admin: 06/29/21 21:34 Dose: 3 units Documented by: Insulin Glargine (Insulin Glargine Solostar 100 Units/Ml 3 Ml Pen) 10 units SC [facility] Stop: 07/24/21 08:59 Last Admin: 06/30/21 08:55 Dose: 10 units Documented by: Levothyroxine Sodium (Levothyroxine Sodium 150 Mcg Tablet) 150 mcg PO [facility] Stop: 07/18/21 20:59 Last Admin: 06/29/21 21:30 Dose: 150 mcg Documented by: Menthol (Cough Drop (Sugar Free) Rajani 24 Rajani/1 Box) 1 rajani BUCCAL PRN PRN PRN Reason: Cough Stop: 07/26/21 17:26 Last Admin: 06/26/21 17:34 Dose: 1 rajani Documented by: Metoprolol Succinate (Metoprolol Succ 25mg Ext Rel Tab) 25 mg PO DAILY [facility] Stop: 07/18/21 04:54 Last Admin: 06/30/21 08:03 Dose: 25 mg Documented by: Miscellaneous (Carbohydrates For Hypoglycemia ) 15 - 30 gm PO UD PRN PRN Reason: Hypoglycemia Protocol Stop: 07/18/21 08:12 Miscellaneous Information (Pharmacy Glycemic Mgmt Consult) 1 ea N/A UD PRN PRN Reason: Consult Stop: 07/23/21 16:20 Pantoprazole Sodium (Pantoprazole 40 Mg Tab) 40 mg PO HS [facility] Stop: 07/18/21 20:59 Last Admin: 06/29/21 21:31 Dose: 40 mg Documented by: Sodium Chloride (Sodium Chloride 0.65% Na Soln 45 Ml ([employer])) 2 sprays NA Q4H PRN PRN Reason: Dryness Stop: 07/27/21 08:34 Vitamin D (Cholecalciferol 1,000 Units 25 Mcg Tab) 1,000 units PO QA [facility] Stop: 07/26/21 08:59 Last Admin: 06/30/21 08:03 Dose: 1,000 units Documented by: Zinc Sulfate (Zinc Sulfate 220 Mg Capsule) 220 mg PO QAM [facility] Stop: 07/26/21 08:59 Last Admin: 06/30/21 08:03 Dose: 220 mg Documented by:
[2021-06-30] MEDS ORDERED: OPTIRAY 320 125ml IV ONE (20:31)
--- NOTE | 2021-06-30 20:50 | CT Scan Report ---
CT ANGIOGRAPHY OF THE CHEST, PULMONARY EMBOLUS PROTOCOL CLINICAL HISTORY: Shortness of breath. Covid. COMPARISON STUDY: Chest radiograph June 28, 2021. TECHNIQUE: Following IV administration of 120 mL of Optiray, helical axial images of the chest were o btained utilizing the pulmonary embolus protocol. Maximal intensity projections and sagittal and cor onal reformats were viewed on an independent 3D workstation. IV contrast was administered without co mplication. Automated exposure control was utilized for the study. A dose lowering technique was ut ilized adhering to the principles of ALARA. CT DOSE: 579.72 mGycm FINDINGS: No pulmonary emboli are identified. There is no thoracic aortic dissection. The size of th e heart is normal. There is no pericardial effusion. No thoracic lymphadenopathy is present. Central airways are patent. Extensive airspace opacities within the lungs are noted. These are similar to [place]go or chest radiograph when allowing for differences in technique. No pneumothorax or pleural effusion i s noted. Gallstones within the gallbladder are incidentally noted. IMPRESSION: 1. No pulmonary emboli identified. 2. No significant change in extensive bilateral airspace opacities consistent with viral pneumonia. ACT 112: Negative or not required by law. Electronically signed by: Akira Luna M.D. 06/30/2021 8:48 PM
[2021-06-30] MEDS: FEXOFENADINE HCL 180 MG TAB PO SCH (21:29)
[2021-06-30] MEDS: LEVOTHYROXINE SODIUM 150 MCG TABLET PO SCH (21:30)
[2021-06-30] MEDS: PANTOprazole 40 MG TAB PO SCH (21:30)
[2021-07-01] MEDS: ALBUTEROL HFA 8 GM INHALER INH SCH ×2 (07:26→11:18)
[2021-07-01] MEDS: amLODIPine BESYLATE 5 MG TAB PO SCH (09:10)
[2021-07-01] MEDS: ASCORBIC ACID 500 MG TAB PO SCH ×2 (09:11→20:06)
[2021-07-01] MEDS: guaiFENesin 600 MG TABCR PO SCH ×2 (09:13→20:08)
[2021-07-01] MEDS: CHOLECALCIFEROL 1,000 UNITS 25 MCG TAB PO SCH (09:13)
[2021-07-01] MEDS: METOPROLOL SUCC 25MG EXT REL TAB PO SCH (09:14)
[2021-07-01] MEDS: ZINC SULFATE 220 MG CAPSULE PO SCH (09:14)
[2021-07-01] MEDS: FLUTICASONE PROPIONATE NA SPR 16 GM BTL SCH (09:15)
[2021-07-01] MEDS: ENOXAPARIN INJ 40 MG/0.4 ML SYR SQ SCH (09:16)
[2021-07-01] MEDS: FLUTICASONE/VILANTEROL 200/25MCG 14 PUFFS/INHALER INH SCH (09:17)
[2021-07-01] MEDS: cefTRIAXone SODIUM 2,000 MG in DEXTROSE 5% 50 ML IV SCH (09:18)
[2021-07-01] MEDS: INSULIN GLARGINE SOLOSTAR 100 UNITS/ML 3 ML PEN SC SCH (09:28)
[2021-07-01] MEDS: INSULIN ASPART 100 UNITS/ML 3 ML PEN SC SCH ×4 (10:44→20:17)
[2021-07-01] MEDS: BENZONATATE 100 MG CAPSULE PO SCH ×3 (11:30→20:14)
[2021-07-01] MEDS ORDERED: ALBUTEROL HFA 8 GM INHALER INH PRN (12:00)
--- NOTE | 2021-07-01 13:20 | Pharmacy Report ---
Pharmacy Glycemic Short Note 2 - Date of Service July 01, 2021 - Glycemic Short BSG Results (Last 24 hours): 06/30/21 06/30/21 07/01/21 16:46 20:38 08:02 POC Glucose 120 H 183 H 102 H 07/01/21 11:33 POC Glucose 244 H OUTPATIENT ANTIDIABETIC REGIMEN: * n/A * A1C 7.2% 06/18/21 * Previously diagnosed with pre-diabetes ASSESSMENT: 07/01 * Dexamethasone has been discontinued, discontinued NPH * Fasting this AM 102 mg/dL, will continue current lantus orders- 10 units qAM * Lunch BSG elevated today, however breakfast novolog not given, did slightly tighten carb ratio as patient did trend up yesterday, may need to loosen again if dinner too low. 06/29 * 117 units SQ given over last 24 hrs while tolerating a diet * Fasting BSG 63 this AM w/ 10 units Lantus on board and after receiving 50 units NPH yesterday - will decrease NPH dose today as a precaution * Post-prandial hyperglycemia continued yesterday, however slightly improved vs previous days * Will increase prandial insulin doses today as NPH dose will be reduced. Will give less Novolog doses at HS to help prevent fasting AM lows * It appears that today is the final day of Dexamethasone 10mg IV - insulin dose s to be reassessed tomorrow AM 06/28 * Pt has received 143 units of insulin over the past 24hrs * 10 units of basal with Lantus * 50 units (0.42 units/kg) of NPH for steroid induced hyperglycemia with dexamethasone * 83 units of bolus with NovoLog * Two more days of dexamethasone scheduled. Dex will dc after dose on 06/29. Will increase insulin again today as all BSGs elevated yesterday. Pt will require insulin dose decrease on 06/30 when dex is dc. 06/27 * Pt with SEVERE hyperglycemia last evening; possibly d/t additional dose of DXM given the day before vs uncovered snack? Pre-dinner BSG does tend to run high based on previous days data. Will tighten CR to combat pre-dinner hyperglycemia 06/26 * 85 units SQ admin over last 24 hrs while tolerating diet * Fasting BSG elevated this AM, 174, however pt did receive additional IV dexamethasone yesterday mid-day which could have influenced AM results * Pt received 6mg and 10mg IV dexamethasone yesterday. Pt is now only ordered 10mg daily in the AM * Will increase prandial insulin doses today PLAN FOR INPATIENT GLYCEMIC CONTROL: * Hold outpatient oral diabetes medications * Basal insulin * Lantus 10 Q AM * Bolus insulin * NovoLog per scale ACHS or Q6hrs while NPO * Goal Range: Low 110 mg/dL - High 140 mg/dL * Correction Factor: 15 mg/dL/unit with meals; 20 mg/dL/unit at HS * Nutritional / Prandial insulin per carb ratio of 1 unit per 4 grams CHO consumed with meals; 1 unit per 7 grams CHO consumed HS PLAN FOR DISCHARGE: * Given A1c of 7.2%, and recent receipt of outpt steroid therapy, would recommend lifestyle modifications on discharge with periodic SMBG and f/u A1c testing in a month or two to screen for DM.
--- NOTE | 2021-07-01 14:55 | Hospitalist Progress Note ---
Date of Service July 01, 2021 Assessment & Plan (1) Acute hypoxemic respiratory failure: Plan: Acute respiratory failure with hypoxia Multifocal COVID pneumonia Possible asthma exacerbation COVID Screen:Positive as outpatient CXR:Multiple airspace opacities which may represent atelectasis, pneumonia, and/or aspiration. CTA: No pulmonary emboli identified. No significant change in extensive bilateral airspace opacities consistent with viral pneumonia. Repeat CXR showed slight progression of moderate bilateral airspace opacities Procalcitonin: 0.07>0.14>0.12 Troponin negative CRP:7.53>6.17>7.07 Ferritin:912 Blood Cx:No growth to date Completed Remdesivir course Completed Dexamethasone course Appreciate Pulmonology Input Lasix, Nebs as needed DVT prophylaxis on Lovenox Monitor LFTs, renal function Continue home inhalers Continue BiPAP/High Flow oxygen PRN On Oxymask currently UTI Urine culture growing Proteus Continue Rocephin Diabetes Mellitus Type II New Diagnosis H/O Prediabetes HbA1C:7.2 Continue insulin therapy while hospitalized Monitor BGs Hypertension Continue amlodipine, Metoprolol Monitor Graves' disease S/P radiation Hypothyroidism TSH: 0.6 Continue levothyroxine DVT Px: Lovenox SQ Admission and Anticipated Discharge Date Admission Date: June 18, 2021 Subjective Patient is seen and examined at bedside Dysuria resolved Denies any dyspnea, chest pain Currently off high flow oxygen Minimal cough Offers no other complaints Review of Systems Review of Systems: All systems reviewed & are unremarkable except as noted in Subjective Physical Exam Physical Exam: Physical Exam: Vitals signs as noted above General Appearance:Obese, no apparent distress Head: normocephalic, Atraumatic Eyes: normal inspection, EOMI Neck: supple, Trachea midline Respiratory/Chest: Decreased breath sounds, CTA, No accessory muscle use Cardiovascular: S1, S2, No murmur, +Tachycardia Abdomen/GI:Soft, Non tender, Bowel sounds present Extremities/Musculoskeletal:normal inspection, no edema Neurologic/Psych:AAOX3, grossly no focal neurological deficits Skin: normal color, warm Results & Data Results & Data ([facility]) Vital Signs (Past 12 Hours) Vital Signs Temp Pulse Pulse Resp BP BP Pulse Ox 07/01/21 12:07 36.5 C 111 H 18 111/77 94 07/01/21 11:18 115 H 24 93 07/01/21 09:31 98 H 07/01/21 07:26 102 H 24 90 07/01/21 07:05 37.0 C 94 H 20 103/59 L 91 07/01/21 03:44 37.0 C 98 H 18 108/62 96 07/01/21 03:22 100 H 24 91 07/01/21 03:00 Pulse Ox 07/01/21 12:07 07/01/21 11:18 07/01/21 09:31 07/01/21 07:26 07/01/21 07:05 07/01/21 03:44 07/01/21 03:22 07/01/21 03:00 89 L
[2021-07-01] MEDS: FEXOFENADINE HCL 180 MG TAB PO SCH (20:07)
[2021-07-01] MEDS: LEVOTHYROXINE SODIUM 150 MCG TABLET PO SCH (20:08)
[2021-07-01] MEDS: PANTOprazole 40 MG TAB PO SCH (20:09)
[2021-07-02 06:20] LABS: Hematocrit (blood only) 39.9 % (42-52); Mean Corpuscular Hemoglobin 28.8 pg (25-34); Mean Corpuscular Hgb Conc 32.6 g/dL (32-36); Mean Corpuscular Volume 88.5 fL (80-100); Mean Platelet Volume 9.3 fL (7.4-10.4); Platelet Count 286 K/uL (130-400); RDW Coefficient of Variation 14.5 % (11.5-14.5); Red Blood Count 4.51 M/uL (4.7-6.1)
[2021-07-02 06:52] LABS: BUN Creatinine Ratio 20.7 (10-20); Creatinine Clr Calc Pharmacy 115.8 ml/min; Est GFR (African American) 110.8 ml/min; Est GFR (Non-African American) 95.6 ml/min; Magnesium 2.3 mg/dl (1.8-2.4); Potassium 3.9 mmol/L (3.5-5.1)
[2021-07-02] MEDS: amLODIPine BESYLATE 5 MG TAB PO SCH (08:07)
[2021-07-02] MEDS: ZINC SULFATE 220 MG CAPSULE PO SCH (08:08)
[2021-07-02] MEDS: ASCORBIC ACID 500 MG TAB PO SCH ×2 (08:08→19:26)
[2021-07-02] MEDS: CHOLECALCIFEROL 1,000 UNITS 25 MCG TAB PO SCH (08:08)
[2021-07-02] MEDS: guaiFENesin 600 MG TABCR PO SCH ×2 (08:09→19:29)
[2021-07-02] MEDS: METOPROLOL SUCC 25MG EXT REL TAB PO SCH (08:10)
[2021-07-02] MEDS: FLUTICASONE PROPIONATE NA SPR 16 GM BTL SCH (08:11)
[2021-07-02] MEDS: ENOXAPARIN INJ 40 MG/0.4 ML SYR SQ SCH (08:12)
[2021-07-02] MEDS: FLUTICASONE/VILANTEROL 200/25MCG 14 PUFFS/INHALER INH SCH (08:13)
[2021-07-02] MEDS: cefTRIAXone SODIUM 2,000 MG in DEXTROSE 5% 50 ML IV SCH (08:14)
[2021-07-02] MEDS: INSULIN ASPART 100 UNITS/ML 3 ML PEN SC SCH ×4 (08:45→19:30)
[2021-07-02] MEDS: BENZONATATE 100 MG CAPSULE PO SCH ×3 (09:34→19:39)
[2021-07-02] MEDS: INSULIN GLARGINE SOLOSTAR 100 UNITS/ML 3 ML PEN SC SCH (09:43)
--- NOTE | 2021-07-02 11:44 | Pharmacy Report ---
Pharmacy Glycemic Short Note 2 - Date of Service July 02, 2021 - Glycemic Short BSG Results (Last 24 hours): 07/01/21 07/01/21 07/02/21 17:12 20:16 05:37 Glucose 96 POC Glucose 126 H 151 H 07/02/21 08:09 Glucose POC Glucose 100 H OUTPATIENT ANTIDIABETIC REGIMEN: * n/A * A1C 7.2% 06/18/21 * Previously diagnosed with pre-diabetes ASSESSMENT: 07/02 * BSGs fairly well controlled yesterday with the exception of pre-lunch hyperglycemia which was explainable * Fasting BSG 100 this AM with 10 units basal on board - will continue * Post-prandial BSGs controlled yesterday when Novolog used to cover carbs - will continue * Continue to monitor BSG trends as there may be some lingering effects of prolong IV dexamethasone course. 07/01 * Dexamethasone has been discontinued, discontinued NPH * Fasting this AM 102 mg/dL, will continue current lantus orders- 10 units qAM * Lunch BSG elevated today, however breakfast novolog not given, did slightly tighten carb ratio as patient did trend up yesterday, may need to loosen again if dinner too low. 06/29 * 117 units SQ given over last 24 hrs while tolerating a diet * Fasting BSG 63 this AM w/ 10 units Lantus on board and after receiving 50 units NPH yesterday - will decrease NPH dose today as a precaution * Post-prandial hyperglycemia continued yesterday, however slightly improved vs previous days * Will increase prandial insulin doses today as NPH dose will be reduced. Will give less Novolog doses at HS to help prevent fasting AM lows * It appears that today is the final day of Dexamethasone 10mg IV - insulin doses to be reassessed tomorrow AM 06/28 * Pt has received 143 units of insulin over the past 24hrs * 10 units of basal with Lantus * 50 units (0.42 units/kg) of NPH for steroid induced hyperglycemia with dexamethasone * 83 units of bolus with NovoLog * Two more days of dexamethasone scheduled. Dex will dc after dose on 06/29. Will increase insulin again today as all BSGs elevated yesterday. Pt will require insulin dose decrease on 06/30 when dex is dc. PLAN FOR INPATIENT GLYCEMIC CONTROL: * Basal insulin * Lantus 10 units Q AM * Bolus insulin * NovoLog per scale ACHS or Q6hrs while NPO * Goal Range: Low 110 mg/dL - High 140 mg/dL * Correction Factor: 15 mg/dL/unit with meals; 20 mg/dL/unit at HS * Nutritional / Prandial insulin per carb ratio of 1 unit per 4 grams CHO consumed with meals; 1 unit per 7 grams CHO consumed HS PLAN FOR DISCHARGE: * Given A1c of 7.2%, and recent receipt of outpt steroid therapy, would recommend lifestyle modifications on discharge with periodic SMBG and f/u A1c testing in a month or two to screen for DM.
--- NOTE | 2021-07-02 14:49 | Hospitalist Progress Note ---
Date of Service July 02, 2021 Assessment & Plan (1) Acute hypoxemic respiratory failure: Plan: Acute respiratory failure with hypoxia Multifocal COVID pneumonia Possible asthma exacerbation COVID Screen:Positive as outpatient CXR:Multiple airspace opacities which may represent atelectasis, pneumonia, and/or aspiration. CTA: No pulmonary emboli identified. No significant change in extensive bilateral airspace opacities consistent with viral pneumonia. Repeat CXR showed slight progression of moderate bilateral airspace opacities Procalcitonin: 0.07>0.14>0.12 Troponin negative CRP:7.53>6.17>7.07 Ferritin:912 Blood Cx:No growth to date Completed Remdesivir, Dexamethasone course Appreciate Pulmonology Input Lasix, Nebs as needed DVT prophylaxis on Lovenox Monitor LFTs, renal function Continue home inhalers Weaned off of high flow Currently saturating well on minimal supplemental oxygen Plan to get 2 step tomorrow UTI Urine culture growing Proteus Continue Rocephin Diabetes Mellitus Type II New Diagnosis H/O Prediabetes HbA1C:7.2 Continue insulin therapy while hospitalized Monitor BGs Hypertension Continue amlodipine, Metoprolol Monitor Graves' disease S/P radiation Hypothyroidism TSH: 0.6 Continue levothyroxine DVT Px: Lovenox SQ Admission and Anticipated Discharge Date Admission Date: June 18, 2021 Subjective Patient is seen and examined at bedside States feeling well today No new complaints Minimal cough Appetite improved Denies any dyspnea, chest pain Saturating well on 3 L of supplemental oxygen Review of Systems Review of Systems: All systems reviewed & are unremarkable except as noted in Subjective Physical Exam Physical Exam: Physical Exam: Vitals signs as noted above General Appearance:Obese, no apparent distress Head: normocephalic, Atraumatic Eyes: normal inspection, EOMI Neck: supple, Trachea midline Respiratory/Chest: Decreased breath sounds, CTA, No accessory muscle use Cardiovascular: S1, S2, No murmur, +Tachycardia Abdomen/GI:Soft, Non tender, Bowel sounds present Extremities/Musculoskeletal:normal inspection, no edema Neurologic/Psych:AAOX3, grossly no focal neurological deficits Skin: normal color, warm Results & Data Results & Data ([facility]) Vital Signs (Past 12 Hours) Vital Signs Temp Pulse Pulse Resp BP BP Pulse Ox 07/02/21 12:44 36.6 C 07/02/21 12:23 94 07/02/21 11:46 38.5 C H 108 H 18 117/77 96 07/02/21 09:55 83 07/02/21 06:58 36.9 C 96 H 21 131/85 93 07/02/21 04:41 37.2 C 07/02/21 03:17 84 20 126/62 93 Laboratory Results Short CBC 07/02/21 Range/Units 05:37 WBC 9.40 (4.8-10.8) K/uL Hgb 13.0 L (14.0-18.0) g/dL Hct 39.9 L (42-52) % Plt Count 286 (130-400) K/uL BMP 07/02/21 05:37 Sodium 137 Potassium 3.9 Chloride 110 H Carbon Dioxide 24 BUN 18 Creatinine 0.89 Glucose 96 Calcium 8.0 L
[2021-07-02] MEDS: FEXOFENADINE HCL 180 MG TAB PO SCH (19:27)
[2021-07-02] MEDS: LEVOTHYROXINE SODIUM 150 MCG TABLET PO SCH (19:27)
[2021-07-02] MEDS: PANTOprazole 40 MG TAB PO SCH (19:30)
[2021-07-03 07:25] LABS: Hematocrit (blood only) 38.3 % (42-52); Hemoglobin 12.3 g/dL (14.0-18.0); Mean Corpuscular Hemoglobin 28.3 pg (25-34); Mean Corpuscular Hgb Conc 32.1 g/dL (32-36); Mean Corpuscular Volume 88.2 fL (80-100); Mean Platelet Volume 9.2 fL (7.4-10.4); Platelet Count 293 K/uL (130-400); RDW Coefficient of Variation 14.6 % (11.5-14.5); RDW Standard Deviation 47.7 fL (36.4-46.3); Red Blood Count 4.34 M/uL (4.7-6.1); White Blood Count 10.26 K/uL (4.8-10.8)
[2021-07-03 07:55] LABS: BUN Creatinine Ratio 20.1 (10-20); Calcium 8.3 mg/dl (8.5-10.1); Est GFR (African American) 103.3 ml/min; Est GFR (Non-African American) 89.1 ml/min; Potassium 3.9 mmol/L (3.5-5.1)
[2021-07-03] MEDS: ENOXAPARIN INJ 40 MG/0.4 ML SYR SQ SCH (09:38)
[2021-07-03] MEDS: CHOLECALCIFEROL 1,000 UNITS 25 MCG TAB PO SCH (09:39)
[2021-07-03] MEDS: guaiFENesin 600 MG TABCR PO SCH (09:39)
[2021-07-03] MEDS: cefTRIAXone SODIUM 2,000 MG in DEXTROSE 5% 50 ML IV SCH (09:39)
[2021-07-03] MEDS: ASCORBIC ACID 500 MG TAB PO SCH (09:39)
[2021-07-03] MEDS: FLUTICASONE/VILANTEROL 200/25MCG 14 PUFFS/INHALER INH SCH (09:40)
[2021-07-03] MEDS: ZINC SULFATE 220 MG CAPSULE PO SCH (09:40)
[2021-07-03] MEDS: METOPROLOL SUCC 25MG EXT REL TAB PO SCH (09:40)
[2021-07-03] MEDS: amLODIPine BESYLATE 5 MG TAB PO SCH (09:40)
[2021-07-03] MEDS: FLUTICASONE PROPIONATE NA SPR 16 GM BTL SCH (09:52)
[2021-07-03] MEDS: INSULIN GLARGINE SOLOSTAR 100 UNITS/ML 3 ML PEN SC SCH (10:01)
[2021-07-03] MEDS: INSULIN ASPART 100 UNITS/ML 3 ML PEN SC SCH ×2 (10:03→13:54)
[2021-07-03] MEDS: BENZONATATE 100 MG CAPSULE PO SCH (10:09)
--- NOTE | 2021-07-03 11:16 | Pharmacy Report ---
Pharmacy Glycemic Short Note 2 - Date of Service July 03, 2021 - Glycemic Short BSG Results (Last 24 hours): 07/02/21 07/02/21 07/02/21 11:51 16:10 19:27 Glucose POC Glucose 176 H 174 H 137 H 07/03/21 07/03/21 06:26 08:38 Glucose 91 POC Glucose 121 H OUTPATIENT ANTIDIABETIC REGIMEN: * n/A * A1C 7.2% 06/18/21 * Previously diagnosed with pre-diabetes ASSESSMENT: 07/03 * BSGs well controlled over last 24 hours * 57 units SQ administered over last 24 hrs while tolerating a diet (PO intake appears to be increasing) * Fasting BSG at goal with 10 units Lantus on board (FBS 121) - will continue * Post-prandial BSGs controlled 3 of 3 yesterday - will continue current Novolog doses 07/02 * BSGs fairly well controlled yesterday with the exception of pre-lunch hyperglycemia which was explainable * Fasting BSG 100 this AM with 10 units basal on board - will continue * Post-prandial BSGs controlled yesterday when Novolog used to cover carbs - will continue * Continue to monitor BSG trends as there may be some lingering effects of prolong IV dexamethasone course. 07/01 * Dexamethasone has been discontinued, discontinued NPH * Fasting this AM 102 mg/dL, will continue current lantus orders- 10 units qAM * Lunch BSG elevated today, however breakfast novolog not given, did slightly tighten carb ratio as patient did trend up yesterday, may need to loosen again if dinner too low. 06/29 * 117 units SQ given over last 24 hrs while tolerating a diet * Fasting BSG 63 this AM w/ 10 units Lantus on board and after receiving 50 units NPH yesterday - will decrease NPH dose today as a precaution * Post-prandial hyperglycemia continued yesterday, however slightly improved vs previous days * Will increase prandial insulin doses today as NPH dose will be reduced. Will give less Novolog doses at HS to help prevent fasting AM lows * It appears that today is the final day of Dexamethasone 10mg IV - insulin doses to be reassessed tomorrow AM 06/28 * Pt has received 143 units of insulin over the past 24hrs * 10 units of basal with Lantus * 50 units (0.42 units/kg) of NPH for steroid induced hyperglycemia with dexamethasone * 83 units of bolus with NovoLog * Two more days of dexamethasone scheduled. Dex will dc after dose on 06/29. Will increase insulin again today as all BSGs elevated yesterday. Pt will require insulin dose decrease on 06/30 when dex is dc. PLAN FOR INPATIENT GLYCEMIC CONTROL: * Basal insulin * Lantus 10 units Q AM * Bolus insulin * NovoLog per scale ACHS or Q6hrs while NPO * Goal Range: Low 110 mg/dL - High 140 mg/dL * Correction Factor: 15 mg/dL/unit with meals; 20 mg/dL/unit at HS (will only correct if HS BSG above 180) * Nutritional / Prandial insulin per carb ratio of 1 unit per 4 grams CHO consumed with meals; 1 unit per 7 grams CHO consumed HS PLAN FOR DISCHARGE: * Given A1c of 7.2%, and recent receipt of outpt steroid therapy, would recommend lifestyle modifications on discharge with periodic SMBG and f/u A1c testing in a month or two to screen for DM.
--- NOTE | 2021-07-03 12:33 | Hospitalist Progress Note ---
Date of Service July 03, 2021 Assessment & Plan (1) Acute hypoxemic respiratory failure: Plan: Acute respiratory failure with hypoxia Multifocal COVID pneumonia Possible asthma exacerbation COVID Screen:Positive as outpatient CXR:Multiple airspace opacities which may represent atelectasis, pneumonia, and/or aspiration. CTA: No pulmonary emboli identified. No significant change in extensive bilateral airspace opacities consistent with viral pneumonia. Repeat CXR showed slight progression of moderate bilateral airspace opacities Procalcitonin: 0.07>0.14>0.12 Troponin negative CRP:7.53>6.17>7.07 Ferritin:912 Blood Cx:No growth to date Completed Remdesivir, Dexamethasone course Appreciate Pulmonology Input Lasix, Nebs as needed DVT prophylaxis on Lovenox Monitor LFTs, renal function Continue home inhalers Weaned off of high flow 2 step: Qualifies for 2 L of supplemental oxygen at rest and 4 L with activity. UTI Urine culture growing Proteus Continue Rocephin Day #5 Diabetes Mellitus Type II New Diagnosis H/O Prediabetes HbA1C:7.2 Continue insulin therapy while hospitalized Monitor BGs Prefers to be not started on any medications upon discharge Prefers to control it with diet and exercise and discuss with primary care phys carson Terrell Hypertension Continue amlodipine, Metoprolol Monitor Graves' disease S/P radiation Hypothyroidism TSH: 0.6 Continue levothyroxine DVT Px: Lovenox SQ Admission and Anticipated Discharge Date Admission Date: June 18, 2021 Subjective Patient is seen and examined at bedside No new complaints Had 2 step earlier today Minimal cough, much improved Denies any dyspnea, chest pain Review of Systems Review of Systems: All systems reviewed & are unremarkable except as noted in Subjective Physical Exam Physical Exam: Physical Exam: Vitals signs as noted above General Appearance:Obese, no apparent distress Head: normocephalic, Atraumatic Eyes: normal inspection, EOMI Neck: supple, Trachea midline Respiratory/Chest: Decreased breath sounds, CTA, No accessory muscle use Cardiovascular: S1, S2, No murmur, +Tachycardia Abdomen/GI:Soft, Non tender, Bowel sounds present Extremities/Musculoskeletal:normal inspection, no edema Neurologic/Psych:AAOX3, grossly no focal neurological deficits Skin: normal color, warm Results & Data Results & Data ([facility]) Vital Signs (Past 12 Hours) Vital Signs Temp Pulse Pulse Pulse Pulse Pulse Pulse 07/03/21 08:45 102 H 114 H 117 H 111 H 07/03/21 07:20 36.8 C 96 H 07/03/21 02:58 37.5 C 97 H Pulse Pulse Resp Resp Resp Resp Resp 07/03/21 08:45 108 H 103 H 20 22 20 22 07/03/21 07:20 18 07/03/21 02:58 21 Resp Resp BP BP Pulse Ox Pulse Ox Pulse Ox 07/03/21 08:45 20 20 92 87 L 07/03/21 07:20 132/81 90 07/03/21 02:58 121/70 91 Pulse Ox Pulse Ox Pulse Ox Pulse Ox 07/03/21 08:45 90 86 L 91 87 L 07/03/21 07:20 07/03/21 02:58 Laboratory Results Short CBC 07/03/21 Range/Units 06:26 WBC 10.26 (4.8-10.8) K/uL Hgb 12.3 L (14.0-18.0) g/dL Hct 38.3 L (42-52) % Plt Count 293 (130-400) K/uL BMP 07/03/21 06:26 Sodium 140 Potassium 3.9 Chloride 111 H Carbon Dioxide 23 BUN 19 H Creatinine 0.95 Glucose 91 Calcium 8.3 L
--- NOTE | 2021-07-03 14:31 | Discharge Summary ---
Date of Service July 03, 2021 Admission HPI Per Admitting Provider History obtained from patient, family, and records. Medical history significant for hypertension, bronchial asthma, Graves' disease status post radiation, hypothyroidism as per records, chronic anemia (baseline hemoglobin of 13 ), prediabetes. 10 days ago, patient noted sinus congestion and postnasal drip, cough productive of yellow sputum and fever. Temperature 101 at home. Has not received COVID-19 vaccination. No recollection of recent COVID-19 contacts. Last week, patient started by PCP on Augmentin and prednisone course for possible asthma exacerbation secondary to sinusitis. Outpatient COVID-19 test later noted to be positive. The last 3 days, patient noted worsening symptoms along with shortness of breath especially on exertion. No chest pain, no fluid retention. At the ER, O2 sats noted to be 80s on room air. Patient received Decadron and neb treatment at the ER. Currently feeling much better. 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 Admission Exam Per Admitting Provider Physical Exam: GENERAL: Anxious, obese, minimal respiratory distress SKIN: Normal color, warm HEENT: Alopecia, pink palpebral conjunctivae, no ptosis, dry buccal mucosa, O2 mask in place NECK : Supple, short neck, no tenderness CHEST : Decreased breath sounds, no tenderness HEART : RRR, no obvious murmurs ABDOMEN: Some distention, nontender EXTREMITIES : No LE swelling/tenderness, no other conspicuous deformities noted NEUROLOGIC : Coherent, no facial asymmetry, no other gross focality Principal Diagnosis Acute respiratory failure with hypoxia Multifocal COVID pneumonia Possible asthma exacerbation Urinary tract infection Diabetes mellitus type 2 Discharge Data Allergies Allergy/AdvReac Type Severity Reaction Status Date / Time aspirin Allergy Unknown HAPPENED Verified 01/08/21 06:49 A SMALL CHILD--TOLD NOT TO TAKE Consultations 06/18/21 01:18 ED Decision to Admit Stat 06/18/21 07:33 Consult Pulmonology Routine Ordered Studies 06/30/21 19:27 CT angio chest PE protocol Urgent Diabetes Follow up Diabetes Follow-up Needed for Newly Diagnosed Diabetes Hospital Course (1) Acute hypoxemic respiratory failure: Acute respiratory failure with hypoxia Multifocal COVID pneumonia Possible asthma exacerbation COVID Screen:Positive as outpatient CXR:Multiple airspace opacities which may represent atelectasis, pneumonia, and/or aspiration. CTA: No pulmonary emboli identified. No significant change in extensive bilateral airspace opacities consistent with viral pneumonia. Repeat CXR showed slight progression of moderate bilateral airspace opacities Procalcitonin: 0.07>0.14>0.12 Troponin negative CRP:7.53>6.17>7.07 Ferritin:912 Blood Cx:No growth to date Completed Remdesivir, Dexamethasone course Appreciate Pulmonology Input Lasix, Nebs as needed DVT prophylaxis on Lovenox Monitor LFTs, renal function Continue home inhalers Weaned off of high flow 2 step: Qualifies for 2 L of supplemental oxygen at rest and 4 L with activity. UTI Urine culture growing Proteus Continue Rocephin Day #5 Diabetes Mellitus Type II New Diagnosis H/O Prediabetes HbA1C:7.2 Continue insulin therapy while hospitalized Monitor BGs Prefers to be not started on any medications upon discharge Prefers to control it with diet and exercise and discuss with primary care physician Dr. Terrell Hypertension Continue amlodipine, Metoprolol Monitor Graves' disease S/P radiation Hypothyroidism TSH: 0.6 Continue levothyroxine DVT Px: Lovenox SQ Total Time Total Time Spent Total Time Spent (In Minutes): 44 minutes Discharge Plan Discharge Items Patient Disposition: Home - Self-Care Reason For Visit: RESP. FAILURE, COVID-19 Discharge Diagnosis: Acute respiratory failure with hypoxia Multifocal COVID pneumonia Possible asthma exacerbation Urinary tract infection Diabetes mellitus type 2 Activity: Per Instructions section Exercise/Sports: Wait until after follow-up appointment Non-emergency contact: Primary Care Provider Call non-emergency contact if: you have any medication questions, your symptoms worsen, your pain is not controlled, your pain is concerning for you and you have a fever Follow-up/Referrals: Martinez Terrell DO [Primary Care Provider] - (Date & Time 07/10/2021 11:00 AM Provider Martinez Terrell DO [facility] PLEASE NOTE THAT THIS IS A TELEHEALTH APPOINTMENT. PLEASE FOLLOW THE INSTRUCTIONS PROVIDED IN YOUR EMAIL. IF YOU HAVE ANY QUESTIONS REGARDING THIS APPOINTMENT, PLEASE CALL ) Diet: Carb Consistent or DM2 and Heart Healthy Addtl Attending Provider Instructions: Follow up with your primary care physician Dr. Terrell on 07/10/2021 11:00 AM Please get antibiotic course as prescribed for urinary tract infection. Use oxygen via nasal cannula: 2 L at rest and 4 L with activity as advised. Seek immediate medical attention if your symptoms reoccur or worsen Please take all medications as instructed on discharge list below. Please call if you have any questions or problems. You can reach a [facility] hospitalist on duty at [facility] 24 hours a day by calling [phone] Coronavirus disease 2019 (COVID-19) is a virus that causes a respiratory illness. It is caused by a coronavirus called 2019 novel coronavirus (2019- nCoV). There are many types of coronavirus. Coronaviruses are a very common cause of bronchitis. They may sometimes cause lung infection(pneumonia). Symptoms can range from mild to severe respiratory illness. These viruses are also foundin some animals. COVID-19 was first found in people in [facility], in late 2018. In 2020, several cases of COVID-19 have been confirmed in the [place] Public health officials are working to find the source. How the virus spreads is not yet fully known. It may be spread through droplets of fluid that a person coughs or sneezes into the air. It may be spread if you touch a surface with virus on it, such as a handle or object, and then touch your mouth. What are the symptoms of COVID-19? Some people have no symptoms or mild symptoms. Symptoms may appear 2 to 14 days after contact with the virus. Symptoms can include: Fever Coughing Trouble breathing What are possible complications from COVID-19? In many cases, this virus can cause infection (pneumonia) in both lungs. In some cases, this can cause . How is COVID-19 diagnosed? Your healthcare provider will ask about your symptoms. He or she will also ask about your recent travel and contact with sick people. Testing for the virus is only done through the CDC. If yourhealthcare provider thinks you may have COVID- 19, he or she will work with your local health department and the CDC on testing. Follow all instructions from your healthcare provider. COVID-19 is diagnosed by: Nasal and throat swab. A cotton-tipped swab is wiped inside your nose or throat. This is done to check for viruses in your nasal mucus. Sputum culture. A small sample of mucus coughed from your lungs (sputum) is collected if you have a cough. It is checked for the virus. How is COVID-19 treated? There is currently no medicine to treat the virus. Treatment is done to help your body while it fights the virus. This is known as supportive care. Supportive care may include: Pain medicine. These include acetaminophen and ibuprofen. They are used to help ease pain and reduce fever. Bed rest. This helps your body fight the illness. For severe illness, you may need to stay in the hospital. Care during severe illness may include: IV (intravenous) fluids.These are given through a vein to help keep your body hydrated. Oxygen. Supplemental oxygen or ventilation with a breathing machine (ventilator) may be given. This is done to keep enough oxygen in your body. Are you at risk for COVID-19? If youve been to a place where people have been sick with this virus, you are at risk for infection. You are at risk if you: Recently traveled to an affected area Had contact with a sick person who recently traveled to this area Had contact with a person who was diagnosed with COVID-19 How can COVID-19 be prevented? There is no vaccine yet. The best prevention is to not have contact with the virus. The CDC advises that people should not travel to areas where there are COVID-19 outbreaks right now for any reason that is not urgent. To help prevent spreading the infection, wash your hands often, or use an alcohol-basedhand shift supervisor melting. If you are in an area with COVID-19: Wash your hands often. Or use an alcohol-based hand shift supervisor melting often. Only touch your eyes, nose, or mouth with clean hands. Dont have contact with people who are sick. Follow local instructions about being in public. For example, you may be told to not use public transport for a period of time. Stay away from markets that have live or animals. Wash your hands after touching any animals. Don't touch animals that may be sick. Dont share eating or drinking tools with sick people. Dont kiss someone who is sick. Clean surfaces often with disinfectant. If you were in an area with COVID-19 in the last 14 days: Call your healthcare provider. He or she can talk with local health staff to see what action may be needed. Follow all instructions from your provider. Take your temperature every morning and evening for at least 14 days. This is to check for fever. Keep a record of the readings. Keep watch for symptoms of the virus. Tell your provider right away if you have symptoms. If you were in an area with COVID-19 and have a fever or other symptoms: Dont panic. Keep in mind that other illnesses can cause similar symptoms. Stay away from work, school, and public places. Limit physical contact with family members. Don't kiss anyone or share eating or drinking utensils. Clean surfaces you touch with disinfectant. This is to help prevent the virus from spreading. Call your healthcare provider. Explain that you have been exposed to COVID-19 and have symptoms. Do this before going to any hospital. Wait for instructions. Keep in mind that healthcare staff may wear protective equipment such as masks, gowns, gloves, and eye protection. You may be put in a separate room. This is to prevent the possible virus from spreading. Tell the healthcare staff about recent travel. This includes local travel on public transport. Staff may need to find other people you have been in contact with. Follow all instructions the healthcare staff give you. If you have been diagnosed with COVID-19 Follow all instructions from your healthcare provider. Dont leave your home, except to get medical care. Call your healthcare providers office before going. They can prepare and give you instructions. This will help prevent the virus from spreading. Dont go to work, school, or public areas. Dont use public transport or taxis. Stay away from other people in your home. Have them wear face masks around you. Dont share household items or food. Wear a face mask if you can. This includes at home or in a medical facility. Cover your face with a tissue when you cough or sneeze. Throw the tissue away. Wash your hands. Wash your hands often. Caregivers should: Follow all instructions from healthcare staff. Wear a face mask and protective clothing as advised. Wash hands often. Keep track of the sick persons symptoms. Clean surfaces, fabrics, and laundry thoroughly. Keep other people away from the sick person. When to call your healthcare provider Call your healthcare provider: If youve recently traveled and have symptoms If you have been diagnosed with COVID-19 and your symptoms are worse To learn more To find out more about COVID-19, visit the CDC website at www.cdc.gov/coronavirus/2019-ncov/index.html. The [employer]. [address] [place] [address], [place] [address]. All rights reserved. This information is not intended as a substitute for professional medical care. Always follow your healthcare professional's instructions. This information has been adapted from [employer] Pending Studies at Discharge: No Stand-Alone Forms: [facility], Smoking Cessation Medications and DC Order Prescriptions: New cefuroxime axetil 250 mg tablet 250 mg PO BID Qty: 4 RF: 0 Continued ketotifen fumarate [[facility]] 0.025 % (0.035 %) drops 1 drp OPB DAILY PRN (Reason: ITCHY EYES) RF: 0 metoprolol succinate 25 mg tablet extended release 24 hr 25 mg PO DAILY RF: 0 fexofenadine 180 mg Tablet 180 mg PO HS RF: 0 levothyroxine 150 mcg tablet 150 mcg PO HS RF: 0 ibuprofen 200 mg Tablet 600 - 800 mg PO DIRECTED PRN (Reason: Pain) RF: 0 omeprazole 20 mg capsule,delayed release(DR/EC) 20 mg PO HS RF: 0 albuterol sulfate [Ventolin HFA] 90 mcg/actuation HFA aerosol inhaler 2 puff INHALATION Q4H PRN (Reason: Shortness Of Breath Or Wheezing) RF: 0 hydrochlorothiazide 12.5 mg tablet 6.25 mg PO QAM RF: 0 Dulera 200-5 mcg/actuation HFA aerosol inhaler 1 puff INHALATION BID RF: 0 Discontinued prednisone 20 mg tablet 40 mg PO DAILY RF: 0 amoxicillin-pot clavulanate 875-125 mg tablet 1 tab PO BID RF: 0 Discharge Orders: Discharge Order (Routine); Ordered 07/03/21 Ordered By: Jaya Manuel/Other Patient Handouts: High Blood Sugar (Hyperglycemia), Hypoglycemia (Low Blood Sugar), Exercise to Manage Your Blood Sugar, Diabetes: Meal Planning, Type 2 Diabetes Admission Data Admit Date/Time: 06/18/21 01:43 Attending Provider: Jaya Villeda Admit Provider: Ke Villasenor Primary Care Provider: Martinez Terrell Other Providers: Ke Villasenor ; Ector Fernandez Other Interventions: Discharge Summary Assessment (RN) Last Done: 07/03/21 13:02
== END 2021-07-03 15:04 | disposition home or self-care (01) | DRG 177 ==
LOC: ED 23:10 → SUATTDRO 06-18 01:43 → 2E 06-18 01:43 → 2S 06-24 14:19 → 2E 06-25 16:17